=== PATIENT | female | born 1930 | race American Indian/Alaskan Native ===

== ENCOUNTER 2018-11-02 08:56 | Inpatient (IN) | payer MEDICARE, BC ==
--- NOTE | 2018-11-02 09:16 | C.PDOC ---
History Of Present Illness Patient is a 88 year old female dionicio who presents to the ED for hypoglycemia after EMS was called to her home. Patient states that she did not wake up like she typically does by calling her family this morning. Patient states that her family became concerned and called EMS after which the patient woke up to EMS being in her house. As per EMS, patient was hypoglycemic at 61. She denies any changes to her diabetes medication and states that she has been eating like she typically does. Patient denies any SOB, CP, palpitations, cough, fever, nausea, vomiting, diarrhea, or dysuria. Time Seen by Provider: 11/02/18 08:58 Chief Complaint (Nursing): High Blood Sugar History Per: Patient, EMS History/Exam Limitations: no limitations Onset/Duration Of Symptoms: Hrs (morning) Associated Infectious Symptoms: denies: Cough, Dysuria, Nausea, Vomiting, Diarrhea Recent travel outside of the [place]: No Additional History Per: Patient, EMS Past Medical History Reviewed: Historical Data, Nursing Documentation, Vital Signs Vital Signs: Last Vital Signs Temp 97.5 F L 11/02/18 09:04 Pulse 62 11/02/18 09:04 Resp 16 11/02/18 09:04 BP 161/72 H 11/02/18 09:04 Pulse Ox 98 11/02/18 09:04 - Medical History PMH: HTN, Hyperlipidemia Surgical History: No Surg Hx Family History: States: No Known Family Hx - Social History Hx Alcohol Use: No Hx Substance Use: No - Immunization History Hx Tetanus Toxoid Vaccination: No Hx Influenza Vaccination: Yes Hx Pneumococcal Vaccination: Yes Review Of Systems Constitutional: Negative for: Fever Cardiovascular: Negative for: Chest Pain, Palpitations Respiratory: Negative for: Cough, Shortness of Breath Gastrointestinal: Negative for: Nausea, Vomiting, Diarrhea Genitourinary: Negative for: Dysuria Physical Exam - Physical Exam Appears: Non-toxic, No Acute Distress Skin: Normal Color, Warm, Dry Head: Atraumatic, Normacephalic Oral Mucosa: Moist Chest: Symmetrical, No Deformity Cardiovascular: Rhythm Regular, No Murmur Respiratory: Normal Breath Sounds, No Rales, No Rhonchi, No Wheezing Gastrointestinal/Abdominal: Soft, No Tenderness, Other (obese) Extremity: Pedal Edema (+2 pitting edema bilateral lower extremities), Other (left proximal humerus has IO ) Neurological/Psych: Oriented x3, Normal Speech, Normal Cognition ED Course And Treatment - Laboratory Results Result Diagrams: 11/02/18 09:40 11/02/18 09:40 ECG Rhythm: Sinus Bradycardia Interpretation Of ECG: Left axis deviation, no acute ST/T wave changes Rate From EC O2 Sat by Pulse Oximetry: 98 (on RA ) Pulse Ox Interpretation: Normal - Other Rad CXR X-Ray: Viewed By Me, Read By Radiologist Interpretation: Accession No. : [id number]. Patient Name / ID : KING HOLLY / [id number]. Exam Date : 11/02/2018 09:12:21 ( Approved ). Study Comment : Sex / Age : F / [id number]. Creator : claudia arndt. Dictator : Hakeem Camejo MD. 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 Approver2 : Report Date : 11/02/2018 09:22:44. My Comment : . Date of service: 11/02/2018. HISTORY: HYPOGLYCEMIA. COMPARISON: None available. FINDINGS: LUNGS: Mild to moderate venous congestion. Patchy increased markings at the left lung base. PLEURA: No significant pleural effusion identified, no pneumothorax apparent. CARDIOVASCULAR: Atherosclerotic calcification at the aortic knob. Enlarged ectatic aorta. Cardiomegaly. Venous congestion. OSSEOUS STRUCTURES: Degenerative changes in the spine and shoulders. VISUALIZED UPPER ABDOMEN: Normal. OTHER FINDINGS: Linear radiopaque density projecting over the left shoulder. IMPRESSION: Mild to moderate venous congestion. Patchy increased markings at the left lung base. Progress Note: Plan: Labs. VBG. EKG. CXR. Urinalysis Disposition - Disposition Forms: [employer] (Lao) - Scribe Statement The provider has reviewed the documentation as recorded by the Waqasibanny Spear All medical record entries made by the Scribe were at my direction and personally dictated by me. I have reviewed the chart and agree that the record accurately reflects my personal performance of the history, physical exam, medical decision making, and the department course for this patient. I have also personally directed, reviewed, and agree with the discharge instructions and disposition.
--- NOTE | 2018-11-02 09:37 | RAD ---
Date of service: 11/02/2018 HISTORY: HYPOGLYCEMIA COMPARISON: None available. FINDINGS: LUNGS: Mild to moderate venous congestion. Patchy increased markings at the left lung base. PLEURA: No significant pleural effusion identified, no pneumothorax apparent. CARDIOVASCULAR: Atherosclerotic calcification at the aortic knob. Enlarged ectatic aorta. Cardiomegaly. Venous congestion. OSSEOUS STRUCTURES: Degenerative changes in the spine and shoulders. VISUALIZED UPPER ABDOMEN: Normal. OTHER FINDINGS: Linear radiopaque density projecting over the left shoulder. IMPRESSION: Mild to moderate venous congestion. Patchy increased markings at the left lung base.
[2018-11-02 09:48] LABS: BASO % 0.3 % (0.0-2.0); EOS % 0.4 % (0.0-4.0); HEMOGLOBIN 10.6 g/dL (11.0-16.0); LYMPH # 0.9 K/uL (1.0-4.3); LYMPH % 7.4 % (20.0-40.0); MEAN CELL VOLUME 90.5 fL (81.0-99.0); MEAN PLATELET VOLUME 9.6 fL (7.2-11.7); MONO # 1.2 K/uL (0.0-0.8); MONO % 9.8 % (0.0-10.0); NEUT # 9.6 K/uL (1.8-7.0); NEUT % 82.1 % (50.0-75.0); PLATELET COUNT 185 K/uL (130-400); RBC 3.77 Mil/uL (3.80-5.20); RED CELL DISTRIBUTION WIDTH 14.1 % (11.5-14.5); WHITE BLOOD COUNT 11.7 K/uL (4.8-10.8)
[2018-11-02 09:48] LABS: VENOUS BLOOD GAS BASE EXCESS -9.1 mmol/L (0.0-2.0); VENOUS BLOOD GAS PCO2 45 mmHg (40-60); VENOUS BLOOD GAS PO2 38 mm/Hg (30-55); VENOUS BLOOD PH 7.22 (7.32-7.43)
[2018-11-02 09:56] LABS: PROTHROMBIN TIME 10.8 SECONDS (9.7-12.2)
[2018-11-02 10:11] LABS: ALB/GLOB RATIO 1.3 (1.0-2.1); ALBUMIN 4.3 g/dL (3.5-5.0); ALT/SGPT 13 U/L (9-52); AST/SGOT 35 U/L (14-36); BLOOD UREA NITROGEN 54 mg/dL (7-17); CALCIUM 9.3 mg/dl (8.6-10.4); GFR NON-AFRICAN AMERICAN 14
[2018-11-02 10:18] LABS: ANISOCYTOSIS SLIGHT; BASOPHIL 1 % (0-2); BURR CELLS SLIGHT; HYPOCHROMIC SLIGHT; LYMPHOCYTE 10 % (20-40); MONOCYTE 9 % (0-10); NEUTROPHIL 80 % (50-75); PLATELET ESTIMATE NORMAL (NORMAL); POIKILOCYTOSIS SLIGHT; TOTAL CELLS COUNTED 100
[2018-11-02 10:20] LABS: CK-MB 0.24 ng/mL (0.0-3.38)
[2018-11-02 11:52] LABS: SQUAMOUS EPITHIAL 1 /hpf (0-5); URINE BACTERIA MANY (<OCC); URINE BILIRUBIN NEGATIVE (NEGATIVE); URINE BLOOD NEGATIVE (NEGATIVE); URINE CLARITY Hazy (Clear); URINE COLOR Yellow (YELLOW); URINE GLUCOSE (UA) NORMAL (Normal); URINE LEUKOCYTE ESTERASE 3+ Leu/uL (Negative); URINE PROTEIN NEGATIVE (NEGATIVE); URINE UROBILINOGEN NORMAL mg/dL (0.2-1.0); WBC CLUMPS FEW /hpf
[2018-11-02] MEDS ORDERED: cefTRIAXone IV 1 gm in Dextros 50 ML IV ONE (12:21)
[2018-11-02 16:10] VITALS: RESP 20
--- NOTE | 2018-11-02 16:34 | CP.PCM.HP ---
<Livier Choudhury - Last Filed: 11/02/18 16:25> History of Present Illness - History of Present Illness History of Present Illness: cc: AMS Ms. Santos is a 88yo F with a past medical history of hypertension, diabetes, and urinary incontinence who was BIBA for AMS. She was found to have a BG of 31 in the field per EMS; was given glucose through IO access. She became more alert through hospital stay, however was found to be acidotic. She also complains of burning on urination. Denies change in medication, change in appetite, headache, dizziness, chest pain, shortness of breath, abdominal pain, lightheadedness, fainting, change in appetite, noncompliance. PMH: HTN, DM, urinary incontinence Med: Atenolol 50mg daily, Plavix 75mg daily, Calciferol 0.25mcg BID, Glipizide 15mg BID, Tradjenta 5mg daily, Veltassa 8.4g daily All: NKDA PSxHx: bilateral total knees about 15 years ago FamHx: mother - CAD, ESRD on HD, in 90s. father - OK in 60s. Sister and Son have DM SocHx: Distant EtOH use. Denies ever tobacco, illicit drug use. Lives alone in senior community. Usually ambulates with walker assistance. PMD: Donnell Nephro: Thomas AlvarezRichardson Present on Admission - Present on Admission Any Indicators Present on Admission: No Review of Systems - Constitutional Constitutional: absent: Chills, Fever, Headache, Increased Appetite, Lethargy, Night Sweats, Weakness - EENT Eyes: absent: Blurred Vision, Change in Vision, Diplopia Ears: absent: Decreased Hearing, Tinnitus, Dizziness Nose/Mouth/Throat: absent: Nasal Congestion, Nasal Discharge - Cardiovascular Cardiovascular: Edema, Leg Edema. absent: Chest Pain, Dyspnea, Palpitations, Syncope - Respiratory Respiratory: absent: Dyspnea, Chest Congestion - Gastrointestinal Gastrointestinal: absent: Abdominal Pain, Constipation, Diarrhea, Nausea, Vomiting - Genitourinary Genitourinary: Dysuria, Urinary Incontinence, Urinary Urgency. absent: Bladder Distension - Musculoskeletal Musculoskeletal: absent: Abnormal Gait, Back Pain, Neck Pain - Integumentary Integumentary: Swelling. absent: Bleeding Lesions, Rash, Unusual Bruising - Neurological Neurological: absent: Numbness, Syncope, Tingling - Psychiatric Psychiatric: absent: Confusion, Hallucinations - Endocrine Endocrine: absent: Fatigue - Hematologic/Lymphatic Hematologic: absent: Easy Bleeding, Easy Bruising Past Patient History - Infectious Disease Hx of Infectious Diseases: None - Past Social History Smoking Status: Never Smoked Alcohol: None Drugs: Denies - CARDIAC Hx Hypertension: Yes - RENAL Hx Renal Failure: Yes - ENDOCRINE/METABOLIC Hx Diabetes Mellitus Type 2: Yes - PSYCHIATRIC Hx Substance Use: No - ANESTHESIA Hx Anesthesia: No Meds Allergies/Adverse Reactions: Allergies Allergy/AdvReac Type Severity Reaction Status Date / Time No Known Allergies Allergy Verified 11/02/18 09:08 Physical Exam - Constitutional Appears: Well, No Acute Distress - Head Exam Head Exam: ATRAUMATIC, NORMOCEPHALIC - Eye Exam Eye Exam: EOMI, PERRL Pupil Exam: NORMAL ACCOMODATION - ENT Exam ENT Exam: Mucous Membranes Moist - Neck Exam Neck exam: Negative for: Lymphadenopathy - Respiratory Exam Respiratory Exam: Clear to Auscultation Bilateral, NORMAL BREATHING PATTERN. absent: Rales, Rhonchi, Wheezes - Cardiovascular Exam Cardiovascular Exam: REGULAR RHYTHM, +S1, +S2. absent: Systolic Murmur - GI/Abdominal Exam GI & Abdominal Exam: Soft. absent: Guarding, Tenderness Additional comments: obese - Exam External exam: NORMAL EXTERNAL EXAM - Extremities Exam Extremities exam: Positive for: normal capillary refill, pedal pulses present - Neurological Exam Neurological exam: Alert, CN II-XII Intact, Oriented x3 Additional comments: brachio reflex 4/4 bilaterally, patellar reflex 2/4 bilaterally - Psychiatric Exam Psychiatric exam: Normal Affect, Normal Mood - Skin Skin Exam: Normal Color, Warm Results - Vital Signs Recent Vital Signs: Last Vital Signs Temp 97.6 F 11/02/18 16:00 Pulse 56 L 11/02/18 16:00 Resp 20 11/02/18 16:00 BP 158/63 H 11/02/18 16:00 Pulse Ox 98 11/02/18 16:00 - Labs Result Diagrams: 11/02/18 09:40 11/02/18 09:40 Labs: Laboratory Results - last 24 hr 11/02/18 11/02/18 11/02/18 09:05 09:40 09:40 WBC 11.7 H RBC 3.77 L Hgb 10.6 L Hct 34.1 MCV 90.5 MCH 28.0 MCHC 31.0 L RDW 14.1 Plt Count 185 MPV 9.6 Neut % (Auto) 82.1 H Lymph % (Auto) 7.4 L Payne % (Auto) 9.8 Eos % (Auto) 0.4 Baso % (Auto) 0.3 Neut # (Auto) 9.6 H Lymph # (Auto) 0.9 L Payne # (Auto) 1.2 H Eos # (Auto) 0.0 Baso # (Auto) 0.0 Neutrophils % (Manual) 80 H Lymphocytes % (Manual) 10 L Monocytes % (Manual) 9 Basophils % (Manual) 1 Platelet Estimate Normal Hypochromasia (manual) Slight Poikilocytosis (manual Slight Anisocytosis (manual) Slight Hull Cells Slight PT 10.8 INR 1.0 APTT 28 pO2 VBG pH VBG pCO2 VBG HCO3 VBG Total CO2 VBG O2 Sat (Calc) VBG Base Excess VBG Potassium Glucose Lactate Sodium Potassium Chloride Carbon Dioxide Anion Gap BUN Creatinine Est GFR ( Amer) Est GFR (Non-Af Amer) POC Glucose (mg/dL) 166 H Random Glucose Calcium Total Bilirubin AST ALT Alkaline Phosphatase Total Creatine Kinase CK-MB (Mass) Troponin I Total Protein Albumin Globulin Albumin/Globulin Ratio TSH 3rd Generation Venous Blood Potassium Urine Color Urine Clarity Urine pH Ur Specific [place] Urine Protein Urine Glucose (UA) Urine Ketones Urine Blood Urine Nitrate Urine Bilirubin Urine Urobilinogen Ur Leukocyte Esterase Urine WBC (Auto) Urine RBC (Auto) Urine WBC Clumps (Auto) Ur Squamous Epith Cells Urine Bacteria 11/02/18 11/02/18 11/02/18 09:40 09:41 11:30 WBC RBC Hgb Hct MCV MCH MCHC RDW Plt Count MPV Neut % (Auto) Lymph % (Auto) Payne % (Auto) Eos % (Auto) Baso % (Auto) Neut # (Auto) Lymph # (Auto) Payne # (Auto) Eos # (Auto) Baso # (Auto) Neutrophils % (Manual) Lymphocytes % (Manual) Monocytes % (Manual) Basophils % (Manual) Platelet Estimate Hypochromasia (manual) Poikilocytosis (manual Anisocytosis (manual) Hanna Cells PT INR APTT pO2 38 VBG pH 7.22 L VBG pCO2 45 VBG HCO3 16.8 VBG Total CO2 19.8 L VBG O2 Sat (Calc) 69.7 H VBG Base Excess -9.1 L VBG Potassium 5.0 Glucose 131 H Lactate 0.8 Sodium 138 143.0 Potassium 5.3 H Chloride 110 H 116.0 H Carbon Dioxide 18 L Anion Gap 15 BUN 54 H Creatinine 3.1 H Est GFR ( Amer) 17 Est GFR (Non-Af Amer) 14 POC Glucose (mg/dL) Random Glucose 133 H Calcium 9.3 Total Bilirubin 0.3 AST 35 ALT 13 Alkaline Phosphatase 60 Total Creatine Kinase 39 CK-MB (Mass) 0.24 Troponin I < 0.0120 Total Protein 7.6 Albumin 4.3 Globulin 3.3 Albumin/Globulin Ratio 1.3 TSH 3rd Generation 0.94 Venous Blood Potassium 5.0 Urine Color Yellow Urine Clarity Hazy Urine pH 6.0 Ur Specific [place] 1.008 Urine Protein Negative Urine Glucose (UA) Normal Urine Ketones Negative Urine Blood Negative Urine Nitrate Positive H Urine Bilirubin Negative Urine Urobilinogen Normal Ur Leukocyte Esterase 3+ H Urine WBC (Auto) 225 H Urine RBC (Auto) 2 Urine WBC Clumps (Auto) Few H Ur Squamous Epith Cells 1 Urine Bacteria Many H - EKG Data EKG Interpreted by: ER Physician EKG shows normal: Sinus rhythm Rate: Bradycardia Assessment & Plan - Assessment and Plan (Free Text) Assessment: 88yo F with PMHx HTN, DM, urinary incontinence admitted for acidosis and possible acute on chronic kidney disease. She was brought in by EMS for low BG (31 in field) which has since normalized. Plan: Acidosis, possible Acute on Chronic CKD - VBG OA pH 7.22, lactate 0.8 - BUN/Cr OA 54/3.1. unknown baseline - CXR OA: mild to mod venous congestion. patchy increased markings at L lung base - Nephro consulted: Dr. Thomas Richardson - help appreciated - Vasc Surg consulted: Dr. Beck - help appreciated - L UE restriction - tentatively scheduled for AVF placement on 11/04 Diabetes Mellitus - f/u Hgb A1c - Accuchecks ACHS - ISS low - hypoglycemia protocol - restart home Glipizide 10mg po BIDAC - NF home Tradjenta 5mg po daily Hyperkalemia - NF home Veltassa 8.4g powder - Kayexlate once - monitor daily labs UTI - UA OA positive for nitrates, 3+ LE, 225 WBC with clumps, many bacteria - WBC OA 11.7 - f/u Urine Cx (11/02): received - f/f Blood Cx (11/02): received - Ceftriaxone 1gm IVPB daily (started 11/02) Hypertension - home Atenolol 50mg po daily held for bradycardia - Hydralazine 25mg po qid PPx - DVT: Heparin 5000u SC q8, Plavix 75mg daily, SCDs CI - Diet: Renal Diet d/w Dr. Norman Choudhury PGY-1 - Date & Time Date: 11/02/18 Time: 16:00 <Kassi Austin - Last Filed: 11/06/18 18:15> Results - Vital Signs Recent Vital Signs: Last Vital Signs Temp 97.6 F 11/02/18 16:00 Pulse 56 L 11/02/18 16:00 Resp 20 11/02/18 16:00 BP 158/63 H 11/02/18 16:00 Pulse Ox 98 11/02/18 16:00 - Labs Result Diagrams: 11/06/18 08:41 11/06/18 08:41 Labs: Laboratory Results - last 24 hr 11/02/18 11/02/18 11/02/18 09:05 09:40 09:40 WBC 11.7 H RBC 3.77 L Hgb 10.6 L Hct 34.1 MCV 90.5 MCH 28.0 MCHC 31.0 L RDW 14.1 Plt Count 185 MPV 9.6 Neut % (Auto) 82.1 H Lymph % (Auto) 7.4 L Payne % (Auto) 9.8 Eos % (Auto) 0.4 Baso % (Auto) 0.3 Neut # (Auto) 9.6 H Lymph # (Auto) 0.9 L Payne # (Auto) 1.2 H Eos # (Auto) 0.0 Baso # (Auto) 0.0 Neutrophils % (Manual) 80 H Lymphocytes % (Manual) 10 L Monocytes % (Manual) 9 Basophils % (Manual) 1 Platelet Estimate Normal Hypochromasia (manual) Slight Poikilocytosis (manual Slight Anisocytosis (manual) Slight Hull Cells Slight PT 10.8 INR 1.0 APTT 28 pO2 VBG pH VBG pCO2 VBG HCO3 VBG Total CO2 VBG O2 Sat (Calc) VBG Base Excess VBG Potassium Glucose Lactate Sodium Potassium Chloride Carbon Dioxide Anion Gap BUN Creatinine Est GFR ( Amer) Est GFR (Non-Af Amer) POC Glucose (mg/dL) 166 H Random Glucose Calcium Total Bilirubin AST ALT Alkaline Phosphatase Total Creatine Kinase CK-MB (Mass) Troponin I Total Protein Albumin Globulin Albumin/Globulin Ratio TSH 3rd Generation Venous Blood Potassium Urine Color Urine Clarity Urine pH Ur Specific [place] Urine Protein Urine Glucose (UA) Urine Ketones Urine Blood Urine Nitrate Urine Bilirubin Urine Urobilinogen Ur Leukocyte Esterase Urine WBC (Auto) Urine RBC (Auto) Urine WBC Clumps (Auto) Ur Squamous Epith Cells Urine Bacteria 11/02/18 11/02/18 11/02/18 09:40 09:41 11:30 WBC RBC Hgb Hct MCV MCH MCHC RDW Plt Count MPV Neut % (Auto) Lymph % (Auto) Payne % (Auto) Eos % (Auto) Baso % (Auto) Neut # (Auto) Lymph # (Auto) Payne # (Auto) Eos # (Auto) Baso # (Auto) Neutrophils % (Manual) Lymphocytes % (Manual) Monocytes % (Manual) Basophils % (Manual) Platelet Estimate Hypochromasia (manual) Poikilocytosis (manual Anisocytosis (manual) Hull Cells PT INR APTT pO2 38 VBG pH 7.22 L VBG pCO2 45 VBG HCO3 16.8 VBG Total CO2 19.8 L VBG O2 Sat (Calc) 69.7 H VBG Base Excess -9.1 L VBG Potassium 5.0 Glucose 131 H Lactate 0.8 Sodium 138 143.0 Potassium 5.3 H Chloride 110 H 116.0 H Carbon Dioxide 18 L Anion Gap 15 BUN 54 H Creatinine 3.1 H Est GFR ( Amer) 17 Est GFR (Non-Af Amer) 14 POC Glucose (mg/dL) Random Glucose 133 H Calcium 9.3 Total Bilirubin 0.3 AST 35 ALT 13 Alkaline Phosphatase 60 Total Creatine Kinase 39 CK-MB (Mass) 0.24 Troponin I < 0.0120 Total Protein 7.6 Albumin 4.3 Globulin 3.3 Albumin/Globulin Ratio 1.3 TSH 3rd Generation 0.94 Venous Blood Potassium 5.0 Urine Color Yellow Urine Clarity Hazy Urine pH 6.0 Ur Specific [place] 1.008 Urine Protein Negative Urine Glucose (UA) Normal Urine Ketones Negative Urine Blood Negative Urine Nitrate Positive H Urine Bilirubin Negative Urine Urobilinogen Normal Ur Leukocyte Esterase 3+ H Urine WBC (Auto) 225 H Urine RBC (Auto) 2 Urine WBC Clumps (Auto) Few H Ur Squamous Epith Cells 1 Urine Bacteria Many H 11/02/18 16:35 WBC RBC Hgb Hct MCV MCH MCHC RDW Plt Count MPV Neut % (Auto) Lymph % (Auto) Payne % (Auto) Eos % (Auto) Baso % (Auto) Neut # (Auto) Lymph # (Auto) Payne # (Auto) Eos # (Auto) Baso # (Auto) Neutrophils % (Manual) Lymphocytes % (Manual) Monocytes % (Manual) Basophils % (Manual) Platelet Estimate Hypochromasia (manual) Poikilocytosis (manual Anisocytosis (manual) Hanna Cells PT INR APTT pO2 VBG pH VBG pCO2 VBG HCO3 VBG Total CO2 VBG O2 Sat (Calc) VBG Base Excess VBG Potassium Glucose Lactate Sodium Potassium Chloride Carbon Dioxide Anion Gap BUN Creatinine Est GFR ( Amer) Est GFR (Non-Af Amer) POC Glucose (mg/dL) 88 Random Glucose Calcium Total Bilirubin AST ALT Alkaline Phosphatase Total Creatine Kinase CK-MB (Mass) Troponin I Total Protein Albumin Globulin Albumin/Globulin Ratio TSH 3rd Generation Venous Blood Potassium Urine Color Urine Clarity Urine pH Ur Specific [place] Urine Protein Urine Glucose (UA) Urine Ketones Urine Blood Urine Nitrate Urine Bilirubin Urine Urobilinogen Ur Leukocyte Esterase Urine WBC (Auto) Urine RBC (Auto) Urine WBC Clumps (Auto) Ur Squamous Epith Cells Urine Bacteria Attending/Attestation - Attestation I have personally seen and examined this patient.: Yes I have fully participated in the care of the patient.: Yes I have reviewed all pertinent clinical information: Yes Notes (Text): 1. Metabolic acidosis,UTI,Renal failure 2.Change in mental status,hypoglycemia,DM 3. Chronic renal failure 4.HTN 5.Urinary incontinence patient was seen and examined by me with the resident. assessment and the plan discussed I agree with the documentation
[2018-11-02] MEDS ORDERED: Glucagon Recombinant 1 mg Inj IM PRN (16:47)
[2018-11-02] MEDS ORDERED: Dextrose 50% SYRINGE Inj (50 ml) IV PRN (16:47)
--- NOTE | 2018-11-02 16:49 | CP.PCM.CON ---
History of Present Illness - History of Present Illness History of Present Illness: Vascular surgery consult note for Dr. Beck Patient is an 88 year old female who presented to the ED after EMS found her unresponsive in her apartment with a blood glucose of 31. Patient reports this happening once before last year but states that her glucose was never this low. She denies any fever, chills, sweating, headache, dizziness, shortness of breath, chest pain, c/d, n/v, dysuria. Patient was scheduled for AV fistula p lacement later this week for chronic kidney disease with Dr. Beck. Patient states that all of her symptoms have resolved. PMHx: HTN, diabetes, HLD, urinary incontinence, CKD Medications: Atenolol 50mg daily, Plavix 75mg daily, Calciferol 0.25mcg BID, Glipizide 15mg BID, Tradjenta 5mg daily, Veltassa 8.4g daily Allergies: NKDA SurgHx: b/l total knee replacement FamilyHx: mother-kidney problems, was on dialysis, @ 91; father-HTN, @ young age SocialHx: patient lives alone in a senior citizen community in , she has a homemaker who comes 1x/day, patient denies alcohol/tobacco/drugs PMD: Dr. Caciedo Review of Systems - Review of Systems All systems: reviewed and no additional remarkable complaints except (as per HPI) Past Patient History - Infectious Disease Hx of Infectious Diseases: None - Past Social History Smoking Status: Never Smoked - CARDIAC Hx Hypertension: Yes - RENAL Hx Renal Failure: Yes - ENDOCRINE/METABOLIC Hx Diabetes Mellitus Type 2: Yes - PSYCHIATRIC Hx Substance Use: No - ANESTHESIA Hx Anesthesia: No Meds Allergies/Adverse Reactions: Allergies Allergy/AdvReac Type Severity Reaction Status Date / Time No Known Allergies Allergy Verified 11/02/18 09:08 Physical Exam - Constitutional Appears: Well, Non-toxic, No Acute Distress - Head Exam Head Exam: ATRAUMATIC, NORMAL INSPECTION, NORMOCEPHALIC - Eye Exam Eye Exam: EOMI, Normal appearance - ENT Exam ENT Exam: Mucous Membranes Moist - Neck Exam Neck exam: Positive for: Full Rom - Respiratory Exam Respiratory Exam: Clear to Auscultation Bilateral, NORMAL BREATHING PATTERN. absent: Accessory Muscle Use, Decreased Breath Sounds, Rales, Rhonchi, Wheezes - Cardiovascular Exam Cardiovascular Exam: REGULAR RHYTHM, +S1, +S2. absent: Bradycardia, Tachycardia, Gallop - GI/Abdominal Exam GI & Abdominal Exam: Normal Bowel Sounds, Soft. absent: Guarding, Rebound, Tenderness - Extremities Exam Extremities exam: Positive for: calf tenderness, pedal edema - Neurological Exam Neurological exam: Altered, Oriented x3 - Psychiatric Exam Psychiatric exam: Normal Affect, Normal Mood - Skin Skin Exam: Dry, Intact, Normal Color, Warm Results - Vital Signs Recent Vital Signs: Last Vital Signs Temp 97.6 F 11/02/18 16:00 Pulse 56 L 11/02/18 16:00 Resp 20 11/02/18 16:00 BP 158/63 H 11/02/18 16:00 Pulse Ox 98 11/02/18 16:00 - Labs Result Diagrams: 11/02/18 09:40 11/02/18 09:40 Labs: Laboratory Results - last 24 hr 11/02/18 11/02/18 11/02/18 09:05 09:40 09:40 WBC 11.7 H RBC 3.77 L Hgb 10.6 L Hct 34.1 MCV 90.5 MCH 28.0 MCHC 31.0 L RDW 14.1 Plt Count 185 MPV 9.6 Neut % (Auto) 82.1 H Lymph % (Auto) 7.4 L Real % (Auto) 9.8 Eos % (Auto) 0.4 Baso % (Auto) 0.3 Neut # (Auto) 9.6 H Lymph # (Auto) 0.9 L Real # (Auto) 1.2 H Eos # (Auto) 0.0 Baso # (Auto) 0.0 Neutrophils % (Manual) 80 H Lymphocytes % (Manual) 10 L Monocytes % (Manual) 9 Basophils % (Manual) 1 Platelet Estimate Normal Hypochromasia (manual) Slight Poikilocytosis (manual Slight Anisocytosis (manual) Slight [place] Cells Slight PT 10.8 INR 1.0 APTT 28 pO2 VBG pH VBG pCO2 VBG HCO3 VBG Total CO2 VBG O2 Sat (Calc) VBG Base Excess VBG Potassium Glucose Lactate Sodium Potassium Chloride Carbon Dioxide Anion Gap BUN Creatinine Est GFR ( Amer) Est GFR (Non-Af Amer) POC Glucose (mg/dL) 166 H Random Glucose Calcium Total Bilirubin AST ALT Alkaline Phosphatase Total Creatine Kinase CK-MB (Mass) Troponin I Total Protein Albumin Globulin Albumin/Globulin Ratio TSH 3rd Generation Venous Blood Potassium Urine Color Urine Clarity Urine pH Ur Specific [place] Urine Protein Urine Glucose (UA) Urine Ketones Urine Blood Urine Nitrate Urine Bilirubin Urine Urobilinogen Ur Leukocyte Esterase Urine WBC (Auto) Urine RBC (Auto) Urine WBC Clumps (Auto) Ur Squamous Epith Cells Urine Bacteria 11/02/18 11/02/18 11/02/18 09:40 09:41 11:30 WBC RBC Hgb Hct MCV MCH MCHC RDW Plt Count MPV Neut % (Auto) Lymph % (Auto) Real % (Auto) Eos % (Auto) Baso % (Auto) Neut # (Auto) Lymph # (Auto) Real # (Auto) Eos # (Auto) Baso # (Auto) Neutrophils % (Manual) Lymphocytes % (Manual) Monocytes % (Manual) Basophils % (Manual) Platelet Estimate Hypochromasia (manual) Poikilocytosis (manual Anisocytosis (manual) Hanna Cells PT INR APTT pO2 38 VBG pH 7.22 L VBG pCO2 45 VBG HCO3 16.8 VBG Total CO2 19.8 L VBG O2 Sat (Calc) 69.7 H VBG Base Excess -9.1 L VBG Potassium 5.0 Glucose 131 H Lactate 0.8 Sodium 138 143.0 Potassium 5.3 H Chloride 110 H 116.0 H Carbon Dioxide 18 L Anion Gap 15 BUN 54 H Creatinine 3.1 H Est GFR ( Amer) 17 Est GFR (Non-Af Amer) 14 POC Glucose (mg/dL) Random Glucose 133 H Calcium 9.3 Total Bilirubin 0.3 AST 35 ALT 13 Alkaline Phosphatase 60 Total Creatine Kinase 39 CK-MB (Mass) 0.24 Troponin I < 0.0120 Total Protein 7.6 Albumin 4.3 Globulin 3.3 Albumin/Globulin Ratio 1.3 TSH 3rd Generation 0.94 Venous Blood Potassium 5.0 Urine Color Yellow Urine Clarity Hazy Urine pH 6.0 Ur Specific [place] 1.008 Urine Protein Negative Urine Glucose (UA) Normal Urine Ketones Negative Urine Blood Negative Urine Nitrate Positive H Urine Bilirubin Negative Urine Urobilinogen Normal Ur Leukocyte Esterase 3+ H Urine WBC (Auto) 225 H Urine RBC (Auto) 2 Urine WBC Clumps (Auto) Few H Ur Squamous Epith Cells 1 Urine Bacteria Many H 11/02/18 16:35 WBC RBC Hgb Hct MCV MCH MCHC RDW Plt Count MPV Neut % (Auto) Lymph % (Auto) Real % (Auto) Eos % (Auto) Baso % (Auto) Neut # (Auto) Lymph # (Auto) Real # (Auto) Eos # (Auto) Baso # (Auto) Neutrophils % (Manual) Lymphocytes % (Manual) Monocytes % (Manual) Basophils % (Manual) Platelet Estimate Hypochromasia (manual) Poikilocytosis (manual Anisocytosis (manual) [place] Cells PT INR APTT pO2 VBG pH VBG pCO2 VBG HCO3 VBG Total CO2 VBG O2 Sat (Calc) VBG Base Excess VBG Potassium Glucose Lactate Sodium Potassium Chloride Carbon Dioxide Anion Gap BUN Creatinine Est GFR ( Amer) Est GFR (Non-Af Amer) POC Glucose (mg/dL) 88 Random Glucose Calcium Total Bilirubin AST ALT Alkaline Phosphatase Total Creatine Kinase CK-MB (Mass) Troponin I Total Protein Albumin Globulin Albumin/Globulin Ratio TSH 3rd Generation Venous Blood Potassium Urine Color Urine Clarity Urine pH Ur Specific [place] Urine Protein Urine Glucose (UA) Urine Ketones Urine Blood Urine Nitrate Urine Bilirubin Urine Urobilinogen Ur Leukocyte Esterase Urine WBC (Auto) Urine RBC (Auto) Urine WBC Clumps (Auto) Ur Squamous Epith Cells Urine Bacteria Assessment & Plan - Assessment and Plan (Free Text) Assessment: 88 year old female with chronic kidney disease. Plan: Patient will be pre-op'd for arteriovenous fistula placement on Friday Patient will need cardiac clearance Discussed with Dr. Ebony Patton, PGY-3
[2018-11-02] MEDS: (Novolog) Insulin Aspart, Recombinant 100 u/ml 10 ml vial SC SCH (22:44)
--- NOTE | 2018-11-03 07:37 | CP.PCM.PN ---
Subjective - Date & Time of Evaluation Date of Evaluation: 11/03/18 Time of Evaluation: 07:34 - Subjective Subjective: Vascular surgery progress note for Dr. Beck Patient seen and examined at bedside. She states she feels much better than before. She denies fevers, chills, headache, dizziness, lightheadedness, palpitations, chest pain, shortness of breath, nausea, vomiting, diarrhea, constipation. Objective - Vital Signs/Intake and Output Vital Signs (last 24 hours): Temp Pulse Resp BP Pulse Ox 97.8 F 59 L 20 129/66 99 11/02/18 23:47 11/02/18 23:47 11/02/18 23:47 11/02/18 23:47 11/02/18 23:47 Intake and Output: 11/03/18 11/03/18 06:59 18:59 Intake Total 480 Balance 480 - Medications Medications: Current Medications Clopidogrel Bisulfate (Plavix) 75 mg PO DAILY [facility] Dextrose (Dextrose 50% Inj) 0 ml IV STAT PRN; Protocol PRN Reason: Hypoglycemia Protocol Dextrose (Glutose 15) 0 gm PO ONCE PRN; Protocol PRN Reason: Hypoglycemia Protocol Glipizide (Glucotrol) 10 mg PO ACB [facility] Glucagon (Glucagen Diagnostic Kit) 0 mg IM STAT PRN; Protocol PRN Reason: Hypoglycemia Protocol Heparin Sodium (Porcine) (Heparin) 5,000 units SC Q8 [facility] Last Admin: 11/03/18 06:23 Dose: 5,000 units Hydralazine HCl (Apresoline) 25 mg PO QID [facility] Last Admin: 11/02/18 21:26 Dose: 25 mg Ceftriaxone Sodium 1 gm/ (Sodium Chloride) 100 mls @ 100 mls/hr IVPB DAILY [facility]; Protocol Dextrose (Dextrose 5% In Water 1000 Ml) 1,000 mls @ 0 mls/hr IV .Q0M PRN; Protocol PRN Reason: Hypoglycemia Protocol Insulin Aspart (Novolog) 0 unit SC ACHS [facility]; Protocol Last Admin: 11/02/18 22:44 Dose: Not Given - Labs Labs: 11/02/18 09:40 11/02/18 09:40 PT 10.8 SECONDS (9.7-12.2) 11/02/18 09:40 INR 1.0 11/02/18 09:40 APTT 28 SECONDS (21-34) 11/02/18 09:40 - Constitutional Appears: Well, Non-toxic, No Acute Distress - Eye Exam Eye Exam: EOMI, PERRL - ENT Exam ENT Exam: Mucous Membranes Moist - Respiratory Exam Respiratory Exam: Clear to Ausculation Bilateral, NORMAL BREATHING PATTERN - Cardiovascular Exam Cardiovascular Exam: REGULAR RHYTHM, +S1, +S2 - GI/Abdominal Exam GI & Abdominal Exam: Soft, Normal Bowel Sounds. absent: Guarding, Tenderness - Extremities Exam Extremities Exam: Normal Capillary Refill - Neurological Exam Neurological Exam: Alert, Awake, Oriented x3 - Psychiatric Exam Psychiatric exam: Normal Affect, Normal Mood - Skin Skin Exam: Dry, Intact, Warm Assessment and Plan - Assessment and Plan (Free Text) Assessment: 88 year old female with chronic kidney disease. Plan: Plan for AV fistula placement on 11/05/18 Cardiology clearance prior to surgery Case discussed with Dr. Ebony Harvey, PGY1
[2018-11-03 07:44] LABS: BASO # 0.1 K/uL (0.0-0.2); BASO % 0.7 % (0.0-2.0); EOS # 0.1 K/uL (0.0-0.7); EOS % 1.7 % (0.0-4.0); HEMOGLOBIN 9.3 g/dL (11.0-16.0); LYMPH % 22.8 % (20.0-40.0); MEAN CELL VOLUME 89.8 fL (81.0-99.0); MEAN CORPUSCULAR HGB CONC 32.3 g/dL (33.0-37.0); MEAN PLATELET VOLUME 9.3 fL (7.2-11.7); MONO # 0.9 K/uL (0.0-0.8); MONO % 10.7 % (0.0-10.0); NEUT # 5.5 K/uL (1.8-7.0); NEUT % 64.1 % (50.0-75.0); NRBC % 0.1 % (0.0-2.0); RBC 3.21 Mil/uL (3.80-5.20); RED CELL DISTRIBUTION WIDTH 13.9 % (11.5-14.5); WHITE BLOOD COUNT 8.7 K/uL (4.8-10.8)
[2018-11-03 07:56] LABS: CALCIUM 8.8 mg/dl (8.6-10.4)
[2018-11-03] MEDS: (Novolog) Insulin Aspart, Recombinant 100 u/ml 10 ml vial SC SCH ×3 (08:24→16:35)
[2018-11-03] MEDS: EPOETIN ALFA 4,000 UNIT/ML ML Dialysis SC SCH (11:00)
--- NOTE | 2018-11-03 12:44 | CARD ---
APPROVED REPORT Date of service: 11/02/2018 EKG Measurement Heart [id number] <Conclusion> Sinus bradycardia Left ventricular hypertrophy with repolarization abnormality Abnormal ECG
--- NOTE | 2018-11-03 12:47 | CP.PCM.CON ---
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 Hypertension control with meds as ordered. Maintain hemodynamics stable. Avoid hypotension. Patient not on ACEI/ARB due to hyperkalemia Monitor Input/Output, daily weights and renal function with basic metabolic lawson el started sodium bicarb, lasix on veltassa as outpt started iron MVI and ESAs as epogen pt seen by vascular surgery and planned for AV access soon Check urine analysis, spot protein/creatinine, albumin/creatinine ratio Anemia work up with TSAT/Ferritin/Vitamin B12/folate Check for 25-OH vitamin D, iPTH, phosphorus level. Dose meds/antibiotics for reduced GFR. Avoid fleets enema/magnesium based laxatives. Avoid nephrotoxins/NSAIDs/ iodinated contrast (unless needed emergently) Glycemic control. low K diet Further work up/management as per primary team Thanks for allowing me to participate in care of your patient. Will follow patient with you. Please call if any Qs. had d/w team Dr Pk Bonilla Office: [phone] Chief Complaint; low sugar Reason for consult: CKD management HPI: Pt is a 88 F with hx of diabetes Mellitus (20 years), hypertension (years) obesity hyperkalemia anemia presented with complaints of AMS and low sugar Denies OTC/herbal meds or NSAIDs No recent iodinated contrast exposure. No obvious episodes of low BP. pt feels usual health f/up with Dr Richardson in office and pt had accepted HD as future mode of dialysis. was aware about need for AV access soon ROS: Cardiovascular: No chest pain. Pulmonary: No shortness of breath Gastrointestinal: denies abdominal pain No nausea. No vomiting. Genitourinary: No pain while urinating. Denies blood in urine. All other negative except as mentioned in HPI Physical Examination: General Appearance: Comfortable, in no acute respiratory distress, co-operative . Vitals reviewed and noted as below Head; Atraumatic, normocephalic ENT: no ulcers no thrush. Tongue is midline. Oropharynx: no rash or ulcers. EYES: Pupils are equal, round and reactive to light accommodation. Eye muscles and extraocular movement intact. Sclera is anicteric. Neck; supple no lymphadenopathy, no thyromegaly or bruit Lungs: Normal respiratory rate/effort. Breath sounds bilateral equal and few basal crackle Heart: Normal rate. s1s2 normal. No rub or gallop. Extremities: 2+ edema. No varicose veins Neurological: Patient is alert, awake and oriented to person, place and time. No focal deficit. Strength bilateral appropriate and equal Skin: Warm and dry. Normal turgor. No rash. Palpitation: Normal elasticity for age Abdomen: Abdomen is soft. Bowel sounds +. There is no abdominal tenderness, no guarding/rigidity no organomegaly Psych: normal insight and normal affect/mood MSK: no joint tenderness or swelling. Digits and nails normal, no deformity : kidney or bladder not palpable Labs/imaging reviewed. Past medical history, past surgical history, family history, social history, allergy reviewed and noted as below Family hx: no hx of CKD. Rest non-contributory UA suggests UTI Past Patient History - Infectious Disease Hx of Infectious Diseases: None - Past Medical History & Family History Past Medical History?: Yes - Past Social History Smoking Status: Never Smoked Alcohol: None Drugs: Denies - CARDIAC Hx Hypertension: Yes - RENAL Hx Renal Failure: Yes - ENDOCRINE/METABOLIC Hx Diabetes Mellitus Type 2: Yes - MUSCULOSKELETAL/RHEUMATOLOGICAL Hx Falls: No - PSYCHIATRIC Hx Substance Use: No - ANESTHESIA Hx Anesthesia: No Meds Allergies/Adverse Reactions: Allergies Allergy/AdvReac Type Severity Reaction Status Date / Time No Known Allergies Allergy Verified 11/02/18 09:08 - Medications Medications: Current Medications Clopidogrel Bisulfate (Plavix) 75 mg PO DAILY [facility] Last Admin: 11/03/18 09:38 Dose: 75 mg Dextrose (Dextrose 50% Inj) 0 ml IV STAT PRN; Protocol PRN Reason: Hypoglycemia Protocol Dextrose (Glutose 15) 0 gm PO ONCE PRN; Protocol PRN Reason: Hypoglycemia Protocol Epoetin Abraham (Procrit) 4,000 unit SC TTS [facility] Last Admin: 11/03/18 11:00 Dose: 4,000 unit Ferrous Gluconate (Fergon) 324 mg PO TID [facility] Furosemide (Lasix) 40 mg PO DAILY [facility] Last Admin: 11/03/18 12:06 Dose: 40 mg Glucagon (Glucagen Diagnostic Kit) 0 mg IM STAT PRN; Protocol PRN Reason: Hypoglycemia Protocol Heparin Sodium (Porcine) (Heparin) 5,000 units SC Q8 [facility] Last Admin: 11/03/18 06:23 Dose: 5,000 units Hydralazine HCl (Apresoline) 25 mg PO QID [facility] Last Admin: 11/03/18 09:38 Dose: 25 mg Ceftriaxone Sodium 1 gm/ (Sodium Chloride) 100 mls @ 100 mls/hr IVPB DAILY [facility]; Protocol Last Admin: 11/03/18 09:38 Dose: 100 mls/hr Dextrose (Dextrose 5% In Water 1000 Ml) 1,000 mls @ 0 mls/hr IV .Q0M PRN; Protocol PRN Reason: Hypoglycemia Protocol Insulin Aspart (Novolog) 0 unit SC ACHS [facility]; Protocol Last Admin: 11/03/18 12:05 Dose: Not Given Sodium Bicarbonate (Sodium Bicarbonate Tab) 1,300 mg PO BID [facility] Last Admin: 11/03/18 11:00 Dose: 1,300 mg Sodium Polystyrene Sulfonate (Kayexalate) 15 gm PO DAILY [facility] Vitamin B Complex/Vit C/Folic Acid (Nephro-Daron) 1 tab PO 0800 [facility] Results - Vital Signs Recent Vital Signs: Last Vital Signs Temp 98.6 F 11/03/18 08:29 Pulse 65 11/03/18 08:29 Resp 20 11/03/18 08:29 BP 158/69 H 11/03/18 12:06 Pulse Ox 96 11/03/18 08:29 - Labs Result Diagrams: 11/03/18 07:27 11/03/18 07:27 Labs: Laboratory Results - last 24 hr 11/02/18 11/02/18 11/03/18 16:35 21:33 07:14 WBC RBC Hgb Hct MCV MCH MCHC RDW Plt Count MPV Neut % (Auto) Lymph % (Auto) [place] % (Auto) Eos % (Auto) Baso % (Auto) Neut # (Auto) Lymph # (Auto) [place] # (Auto) Eos # (Auto) Baso # (Auto) Sodium Potassium Chloride Carbon Dioxide Anion Gap BUN Creatinine Est GFR ( Amer) Est GFR (Non-Af Amer) POC Glucose (mg/dL) 88 83 88 Random Glucose Hemoglobin A1c Calcium 11/03/18 11/03/18 11/03/18 07:27 07:27 07:27 WBC 8.7 RBC 3.21 L Hgb 9.3 L Hct 28.8 L MCV 89.8 MCH 29.0 MCHC 32.3 L RDW 13.9 Plt Count 155 MPV 9.3 Neut % (Auto) 64.1 Lymph % (Auto) 22.8 [place] % (Auto) 10.7 H Eos % (Auto) 1.7 Baso % (Auto) 0.7 Neut # (Auto) 5.5 Lymph # (Auto) 2.0 [place] # (Auto) 0.9 H Eos # (Auto) 0.1 Baso # (Auto) 0.1 Sodium 141 Potassium 5.2 Chloride 115 H Carbon Dioxide 18 L Anion Gap 13 BUN 51 H Creatinine 3.0 H Est GFR ( Amer) 18 Est GFR (Non-Af Amer) 15 POC Glucose (mg/dL) Random Glucose 84 D Hemoglobin A1c 4.7 Calcium 8.8 11/03/18 11:17 WBC RBC Hgb Hct MCV MCH MCHC RDW Plt Count MPV Neut % (Auto) Lymph % (Auto) [place] % (Auto) Eos % (Auto) Baso % (Auto) Neut # (Auto) Lymph # (Auto) [place] # (Auto) Eos # (Auto) Baso # (Auto) Sodium Potassium Chloride Carbon Dioxide Anion Gap BUN Creatinine Est GFR ( Amer) Est GFR (Non-Af Amer) POC Glucose (mg/dL) 108 Random Glucose Hemoglobin A1c Calcium
--- NOTE | 2018-11-03 13:25 | CP.PCM.PN ---
<Livier Choudhury Y - Last Filed: 11/03/18 17:25> Subjective - Date & Time of Evaluation Date of Evaluation: 11/03/18 Time of Evaluation: 09:30 - Subjective Subjective: PGY-1 Medicine Progress note for Dr. Tse Patient was seen and examined today in no acute distress with daughter at bedside. Nurse reports no overnight events. Patient is very excited about her procedure and has no complaints. Denies chest pain, shortness of breath, abdominal pain, headache, dizziness, numbness, tingling. She reports having no cardiac workup in over a year. Objective - Vital Signs/Intake and Output Vital Signs (last 24 hours): Temp Pulse Resp BP Pulse Ox 98.6 F 65 20 158/69 H 96 11/03/18 08:29 11/03/18 08:29 11/03/18 08:29 11/03/18 12:06 11/03/18 08:29 Intake and Output: 11/03/18 11/03/18 06:59 18:59 Intake Total 480 Balance 480 - Medications Medications: Current Medications Clopidogrel Bisulfate (Plavix) 75 mg PO DAILY [facility] Last Admin: 11/03/18 09:38 Dose: 75 mg Dextrose (Dextrose 50% Inj) 0 ml IV STAT PRN; Protocol PRN Reason: Hypoglycemia Protocol Dextrose (Glutose 15) 0 gm PO ONCE PRN; Protocol PRN Reason: Hypoglycemia Protocol Epoetin Abraham (Procrit) 4,000 unit SC TTS [facility] Last Admin: 11/03/18 11:00 Dose: 4,000 unit Ferrous Gluconate (Fergon) 324 mg PO TID [facility] Furosemide (Lasix) 40 mg PO DAILY [facility] Last Admin: 11/03/18 12:06 Dose: 40 mg Glucagon (Glucagen Diagnostic Kit) 0 mg IM STAT PRN; Protocol PRN Reason: Hypoglycemia Protocol Heparin Sodium (Porcine) (Heparin) 5,000 units SC Q8 [facility] Last Admin: 11/03/18 06:23 Dose: 5,000 units Hydralazine HCl (Apresoline) 25 mg PO QID [facility] Last Admin: 11/03/18 09:38 Dose: 25 mg Ceftriaxone Sodium 1 gm/ (Sodium Chloride) 100 mls @ 100 mls/hr IVPB DAILY [facility]; Protocol Last Admin: 11/03/18 09:38 Dose: 100 mls/hr Dextrose (Dextrose 5% In Water 1000 Ml) 1,000 mls @ 0 mls/hr IV .Q0M PRN; Protocol PRN Reason: Hypoglycemia Protocol Insulin Aspart (Novolog) 0 unit SC ACHS [facility]; Protocol Last Admin: 11/03/18 12:05 Dose: Not Given Sodium Bicarbonate (Sodium Bicarbonate Tab) 1,300 mg PO BID [facility] Last Admin: 11/03/18 11:00 Dose: 1,300 mg Sodium Polystyrene Sulfonate (Kayexalate) 15 gm PO DAILY [facility] Vitamin B Complex/Vit C/Folic Acid (Nephro-Daron) 1 tab PO 0800 [facility] - Labs Labs: 11/03/18 07:27 11/03/18 07:27 PT 10.8 SECONDS (9.7-12.2) 11/02/18 09:40 INR 1.0 11/02/18 09:40 APTT 28 SECONDS (21-34) 11/02/18 09:40 - Constitutional Appears: Well, No Acute Distress - Head Exam Head Exam: ATRAUMATIC, NORMOCEPHALIC - Eye Exam Eye Exam: EOMI, Normal appearance, PERRL - ENT Exam ENT Exam: Mucous Membranes Moist - Respiratory Exam Respiratory Exam: Clear to Ausculation Bilateral, NORMAL BREATHING PATTERN. absent: Rales, Rhonchi, Wheezes - Cardiovascular Exam Cardiovascular Exam: REGULAR RHYTHM, +S1, +S2. absent: Murmur - GI/Abdominal Exam GI & Abdominal Exam: Soft, Normal Bowel Sounds. absent: Tenderness Additional comments: obese - Extremities Exam Extremities Exam: Normal Capillary Refill Additional comments: IV access in R arm bilateral non-pitting edema bilaterally distal to knees - Neurological Exam Neurological Exam: Alert, Awake, Oriented x3 - Psychiatric Exam Psychiatric exam: Normal Affect, Normal Mood - Skin Skin Exam: Normal Color, Warm Assessment and Plan - Assessment and Plan (Free Text) Assessment: 88yo F with PMHx HTN, DM, urinary incontinence admitted for acidosis and possible acute on chronic kidney disease. She was brought in by EMS for low BG (31 in field) which has since normalized. Plan: Acidosis, possible Acute on Chronic CKD, AMS - VBG OA pH 7.22, lactate 0.8 - BUN/Cr OA 54/3.1. unknown baseline - CXR OA: mild to mod venous congestion. patchy increased markings at L lung base - EPO 4000u SC TTS - Ferrous Gluconate 324mg po TID - Sodium Bicarb 1300mg po BID - Nephrovite 1 tab PO 0800 - Nephro consulted: Dr. Thomas Richardson - gela appreciated - f/u Phos, Vit D25, microalbumin, total urine protein, PTH - Vasc Surg consulted: Dr. Beck - help appreciated - L UE restriction - scheduled for AVF placement on [place] 11/05 pending cardiac clearance - Cardio consulted: Dr. Hunter - help appreciated - f/u ECHO - f/u Lexiscan stress test. NPO@FL Diabetes Mellitus - resolved - Hgb A1c: 4.7 - Accuchecks ACBD - ISS stopped - hypoglycemia protocol - stop home Glipizide, home Tradjenta NF (wasn't started during stay) Hyperkalemia - NF home Veltassa 8.4g powder - Kayexlate daily - monitor daily labs Acute Anemia - Hbg dropped from 10.6 OA -> 9.3 - Iron studies: Fe 41, TIBC 235, %sat 18, Ferritin 83.9 - VitB12: 463 - Nephro consulted: Dr. Thomas Richardson - help appreciated - EPO 4000u SC TTS - Ferrous Gluconate 324mg po TID - Sodium Bicarb 1300mg po BID - Nephrovite 1 tab PO 0800 UTI - UA OA positive for nitrates, 3+ LE, 225 WBC with clumps, many bacteria - WBC OA 11.7 - f/u Urine Cx (11/02): gram neg kat - f/u Blood Cx (11/02): gram pos cocci in clusters - Ceftriaxone 1gm IVPB daily (started 11/02) Hypertension - home Atenolol 50mg po daily held for bradycardia - Hydralazine 25mg po qid - Norvasc 5mg po daily - Lasix 40mg po daily - monitor vitals, avoid hypotension PPx - DVT: Heparin 5000u SC q8, Plavix 75mg daily, SCDs CI - Diet: Renal Diet, NPO@FL for Lexiscan stress test - PT/OT d/w Dr. Carmencita Choudhury PGY-1 <Sekou Tse - Last Filed: 11/03/18 19:24> Objective - Vital Signs/Intake and Output Vital Signs (last 24 hours): Temp Pulse Resp BP Pulse Ox 98.2 F 58 L 20 189/79 H 98 11/03/18 15:52 11/03/18 15:52 11/03/18 15:52 11/03/18 15:52 11/03/18 15:52 Intake and Output: 11/03/18 11/04/18 18:59 06:59 Intake Total 580 Balance 580 - Medications Medications: Current Medications Amlodipine Besylate (Norvasc) 5 mg PO DAILY [facility] Clopidogrel Bisulfate (Plavix) 75 mg PO DAILY [facility] Last Admin: 11/03/18 09:38 Dose: 75 mg Dextrose (Dextrose 50% Inj) 0 ml IV STAT PRN; Protocol PRN Reason: Hypoglycemia Protocol Dextrose (Glutose 15) 0 gm PO ONCE PRN; Protocol PRN Reason: Hypoglycemia Protocol Epoetin Abraham (Procrit) 4,000 unit SC TTS [facility] Last Admin: 11/03/18 11:00 Dose: 4,000 unit Ferrous Gluconate (Fergon) 324 mg PO TID [facility] Last Admin: 11/03/18 17:43 Dose: 324 mg Furosemide (Lasix) 40 mg PO DAILY [facility] Last Admin: 11/03/18 12:06 Dose: 40 mg Glucagon (Glucagen Diagnostic Kit) 0 mg IM STAT PRN; Protocol PRN Reason: Hypoglycemia Protocol Heparin Sodium (Porcine) (Heparin) 5,000 units SC Q8 [facility] Last Admin: 11/03/18 13:25 Dose: 5,000 units Hydralazine HCl (Apresoline) 25 mg PO QID [facility] Last Admin: 11/03/18 17:43 Dose: 25 mg Ceftriaxone Sodium 1 gm/ (Sodium Chloride) 100 mls @ 100 mls/hr IVPB DAILY [facility]; Protocol Last Admin: 11/03/18 09:38 Dose: 100 mls/hr Dextrose (Dextrose 5% In Water 1000 Ml) 1,000 mls @ 0 mls/hr IV .Q0M PRN; Protocol PRN Reason: Hypoglycemia Protocol Sodium Bicarbonate (Sodium Bicarbonate Tab) 1,300 mg PO BID [facility] Last Admin: 11/03/18 17:43 Dose: 1,300 mg Sodium Polystyrene Sulfonate (Kayexalate) 15 gm PO DAILY [facility] Vitamin B Complex/Vit C/Folic Acid (Nephro-Daron) 1 tab PO 0800 [facility] - Labs Labs: 11/03/18 07:27 03/12/19 07:27 PT 10.8 SECONDS (9.7-12.2) 11/02/18 09:40 INR 1.0 11/02/18 09:40 APTT 28 SECONDS (21-34) 11/02/18 09:40 Attending/Attestation - Attestation I have personally seen and examined this patient.: Yes I have fully participated in the care of the patient.: Yes I have reviewed all pertinent clinical information, including history, physical exam and plan: Yes Notes (Text): Acidosis, possible Acute on Chronic CKD, AMS A1c-4.7 - no further DM medications pavel sulfonureas spoke with daughter at bedside
[2018-11-03 15:28] LABS: IRON 41 ug/dL (37-170)
[2018-11-03 15:59] LABS: % IRON SATURATION 18 (20-55); TOTAL IRON BINDING CAPACITY 235 ug/dL (250-450)
[2018-11-03 16:07] LABS: FERRITIN 83.9 ng/mL
--- NOTE | 2018-11-03 18:30 | PQF ---
PROVIDER RESPONSE TEXT: Metabolic Encephalopathy in the setting of Hypoglycemia and ARF on CKD manifested by AMS and Lethargy , treated with D50 IV REVIEWER QUERY TEXT: Clarification of Clinical Diagnostic Findings Please clarify documentation or clinical relevance for the clinical / diagnostic findings or whether those are insignificant or unable to be further specified. Metabolic Encephalopathy in the setting of Hypoglycemia and ARF on CKD and UTI manifested by AMS and Lethargy , treated with D50 IV. -Other Explanation. -Unable to Determine.. The patient's Clinical Indicators include: Clinical Findings: brought by EMS with BS= 61, K= 5.2, Bun= 5.3, Crea= 3.1 GFR= 18; Positive U/A: Nitrites: Positive, Wbc= 225, Bacteria= Many . Per family patient not wake up this morning like she typically does. AMS . Treatment : D 50% IV, Serial CMP Risk factor: DM, CKD,HTN Query created by: Angie Muñoz on 11/03/2018 4:43 PM Electronically signed by: Sekou Tse MD 11/03/2018 6:28 PM
--- NOTE | 2018-11-04 00:12 | CP.PCM.CON ---
History of Present Illness - History of Present Illness History of Present Illness: Reason for Consultation: HTN uncontrolled Ms. Santos is a 88yo F with a past medical history of hypertension, diabetes, and urinary incontinence who was BIBA for AMS. She was found to have a BG of 31 in the field per EMS; was given glucose through IO access. She became more alert through hospital stay, however was found to be acidotic. She also complains of burning on urination. Denies change in medication, change in appetite, headache, dizziness, chest pain, shortness of breath, abdominal pain, lightheadedness, fainting, change in appetite, noncompliance. PMH: HTN, DM, urinary incontinence Med: Atenolol 50mg daily, Plavix 75mg daily, Calciferol 0.25mcg BID, Glipizide 15mg BID, Tradjenta 5mg daily, Veltassa 8.4g daily All: NKDA PSxHx: bilateral total knees about 15 years ago FamHx: mother - CAD, ESRD on HD, in 90s. father - [place] in 60s. Sister and Son have DM SocHx: Distant EtOH use. Denies ever tobacco, illicit drug use. Lives alone in senior community. Usually ambulates with walker assistance. PMD: Donnell Nephro: Thomas Richardson Present on Admission - Present on Admission Any Indicators Present on Admission: No Review of Systems - Constitutional Constitutional: absent: Chills, Fever, Headache, Increased Appetite, Lethargy, Night Sweats, Weakness - EENT Eyes: absent: Blurred Vision, Change in Vision, Diplopia Ears: absent: Decreased Hearing, Tinnitus, Dizziness Nose/Mouth/Throat: absent: Nasal Congestion, Nasal Discharge - Cardiovascular Cardiovascular: Edema, Leg Edema. absent: Chest Pain, Dyspnea, Palpitations, Syncope - Respiratory Respiratory: absent: Dyspnea, Chest Congestion - Gastrointestinal Gastrointestinal: absent: Abdominal Pain, Constipation, Diarrhea, Nausea, Vomiting - Genitourinary Genitourinary: Dysuria, Urinary Incontinence, Urinary Urgency. absent: Bladder Distension - Musculoskeletal Musculoskeletal: absent: Abnormal Gait, Back Pain, Neck Pain - Integumentary Integumentary: Swelling. absent: Bleeding Lesions, Rash, Unusual Bruising - Neurological Neurological: absent: Numbness, Syncope, Tingling - Psychiatric Psychiatric: absent: Confusion, Hallucinations - Endocrine Endocrine: absent: Fatigue - Hematologic/Lymphatic Hematologic: absent: Easy Bleeding, Easy Bruising Physical Exam - Constitutional Appears: Well, No Acute Distress - Head Exam Head Exam: ATRAUMATIC, NORMOCEPHALIC - Eye Exam Eye Exam: EOMI, PERRL Pupil Exam: NORMAL ACCOMODATION - ENT Exam ENT Exam: Mucous Membranes Moist - Neck Exam Neck exam: Negative for: Lymphadenopathy - Respiratory Exam Respiratory Exam: Clear to Auscultation Bilateral, NORMAL BREATHING PATTERN. absent: Rales, Rhonchi, Wheezes - Cardiovascular Exam Cardiovascular Exam: REGULAR RHYTHM, +S1, +S2. absent: Systolic Murmur - GI/Abdominal Exam GI & Abdominal Exam: Soft. absent: Guarding, Tenderness Additional comments: obese - Exam External exam: NORMAL EXTERNAL EXAM - Extremities Exam Extremities exam: Positive for: normal capillary refill, pedal pulses present - Neurological Exam Neurological exam: Alert, CN II-XII Intact, Oriented x3 Additional comments: brachio reflex 4/4 bilaterally, patellar reflex 2/4 bilaterally - Psychiatric Exam Psychiatric exam: Normal Affect, Normal Mood - Skin Skin Exam: Normal Color, Warm - EKG Data EKG Interpreted by: ER Physician EKG shows normal: Sinus rhythm Rate: Bradycardia Assessment & Plan - Assessment and Plan (Free Text) Assessment: 88yo F with PMHx HTN, DM, urinary incontinence admitted for acidosis and possible acute on chronic kidney disease. She was brought in by EMS for low BG (31 in field) which has since normalized. Plan: Acidosis, possible Acute on Chronic CKD - VBG OA pH 7.22, lactate 0.8 - BUN/Cr OA 54/3.1. unknown baseline - CXR OA: mild to mod venous congestion. patchy increased markings at L lung base - Nephro consulted: Dr. Thomas Richardson - help appreciated - Vasc Surg consulted: Dr. Beck - help appreciated - L UE restriction - tentatively scheduled for AVF placement on 11/04 Diabetes Mellitus - f/u Hgb A1c - Accuchecks ACHS - ISS low - hypoglycemia protocol - restart home Glipizide 10mg po BIDAC - NF home Tradjenta 5mg po daily Hyperkalemia - NF home Veltassa 8.4g powder - Kayexlate once - monitor daily labs UTI - UA OA positive for nitrates, 3+ LE, 225 WBC with clumps, many bacteria - WBC OA 11.7 - f/u Urine Cx (11/02): received - f/f Blood Cx (11/02): received - Ceftriaxone 1gm IVPB daily (started 11/02) Hypertension - home Atenolol 50mg po daily held for bradycardia - Hydralazine 25mg po qid PPx - DVT: Heparin 5000u SC q8, Plavix 75mg daily, SCDs CI - Diet: Renal Diet Past Patient History - Infectious Disease Hx of Infectious Diseases: None - Past Medical History & Family History Past Medical History?: Yes - Past Social History Smoking Status: Never Smoked Alcohol: None Drugs: Denies - CARDIAC Hx Hypertension: Yes - RENAL Hx Renal Failure: Yes - ENDOCRINE/METABOLIC Hx Diabetes Mellitus Type 2: Yes - MUSCULOSKELETAL/RHEUMATOLOGICAL Hx Arthritis: Yes (KNEE JT) - PSYCHIATRIC Hx Substance Use: No - ANESTHESIA Hx Anesthesia: No Meds Allergies/Adverse Reactions: Allergies Allergy/AdvReac Type Severity Reaction Status Date / Time No Known Allergies Allergy Verified 11/02/18 09:08 - Medications Medications: Current Medications Amlodipine Besylate (Norvasc) 5 mg PO DAILY [facility] Clopidogrel Bisulfate (Plavix) 75 mg PO DAILY [facility] Last Admin: 11/03/18 09:38 Dose: 75 mg Dextrose (Dextrose 50% Inj) 0 ml IV STAT PRN; Protocol PRN Reason: Hypoglycemia Protocol Dextrose (Glutose 15) 0 gm PO ONCE PRN; Protocol PRN Reason: Hypoglycemia Protocol Epoetin Abraham (Procrit) 4,000 unit SC TTS [facility] Last Admin: 11/03/18 11:00 Dose: 4,000 unit Ferrous Gluconate (Fergon) 324 mg PO TID [facility] Last Admin: 11/03/18 17:43 Dose: 324 mg Furosemide (Lasix) 40 mg PO DAILY [facility] Last Admin: 11/03/18 12:06 Dose: 40 mg Glucagon (Glucagen Diagnostic Kit) 0 mg IM STAT PRN; Protocol PRN Reason: Hypoglycemia Protocol Heparin Sodium (Porcine) (Heparin) 5,000 units SC Q8 [facility] Last Admin: 11/03/18 21:40 Dose: Not Given Hydralazine HCl (Apresoline) 25 mg PO QID [facility] Last Admin: 11/03/18 21:41 Dose: 25 mg Ceftriaxone Sodium 1 gm/ (Sodium Chloride) 100 mls @ 100 mls/hr IVPB DAILY [facility]; Protocol Last Admin: 11/03/18 09:38 Dose: 100 mls/hr Dextrose (Dextrose 5% In Water 1000 Ml) 1,000 mls @ 0 mls/hr IV .Q0M PRN; Protocol PRN Reason: Hypoglycemia Protocol Sodium Bicarbonate (Sodium Bicarbonate Tab) 1,300 mg PO BID [facility] Last Admin: 11/03/18 17:43 Dose: 1,300 mg Sodium Polystyrene Sulfonate (Kayexalate) 15 gm PO DAILY [facility] Vitamin B Complex/Vit C/Folic Acid (Nephro-Daron) 1 tab PO 0800 [facility] Results - Vital Signs Recent Vital Signs: Last Vital Signs Temp 98.2 F 11/03/18 15:52 Pulse 65 11/03/18 21:42 Resp 20 11/03/18 15:52 BP 182/55 H 11/03/18 21:42 Pulse Ox 98 11/03/18 15:52 - Labs Result Diagrams: 11/03/18 07:27 11/03/18 07:27 Labs: Laboratory Results - last 24 hr 11/03/18 11/03/18 11/03/18 07:14 07:27 07:27 WBC 8.7 RBC 3.21 L Hgb 9.3 L Hct 28.8 L MCV 89.8 MCH 29.0 MCHC 32.3 L RDW 13.9 Plt Count 155 MPV 9.3 Neut % (Auto) 64.1 Lymph % (Auto) 22.8 Winston % (Auto) 10.7 H Eos % (Auto) 1.7 Baso % (Auto) 0.7 Neut # (Auto) 5.5 Lymph # (Auto) 2.0 Winston # (Auto) 0.9 H Eos # (Auto) 0.1 Baso # (Auto) 0.1 Sodium Potassium Chloride Carbon Dioxide Anion Gap BUN Creatinine Est GFR ( Amer) Est GFR (Non-Af Amer) POC Glucose (mg/dL) 88 Random Glucose Hemoglobin A1c 4.7 Calcium Iron TIBC % Saturation Ferritin Vitamin B12 11/03/18 11/03/18 11/03/18 07:27 11:17 14:20 WBC RBC Hgb Hct MCV MCH MCHC RDW Plt Count MPV Neut % (Auto) Lymph % (Auto) Winston % (Auto) Eos % (Auto) Baso % (Auto) Neut # (Auto) Lymph # (Auto) Winston # (Auto) Eos # (Auto) Baso # (Auto) Sodium 141 Potassium 5.2 Chloride 115 H Carbon Dioxide 18 L Anion Gap 13 BUN 51 H Creatinine 3.0 H Est GFR ( Amer) 18 Est GFR (Non-Af Amer) 15 POC Glucose (mg/dL) 108 Random Glucose 84 D Hemoglobin A1c Calcium 8.8 Iron TIBC % Saturation Ferritin 83.9 Vitamin B12 463 11/03/18 11/03/18 11/03/18 14:20 16:25 21:27 WBC RBC Hgb Hct MCV MCH MCHC RDW Plt Count MPV Neut % (Auto) Lymph % (Auto) Winston % (Auto) Eos % (Auto) Baso % (Auto) Neut # (Auto) Lymph # (Auto) Winston # (Auto) Eos # (Auto) Baso # (Auto) Sodium Potassium Chloride Carbon Dioxide Anion Gap BUN Creatinine Est GFR ( Amer) Est GFR (Non-Af Amer) POC Glucose (mg/dL) 122 H 166 H Random Glucose Hemoglobin A1c Calcium Iron 41 TIBC 235 L % Saturation 18 L Ferritin Vitamin B12
[2018-11-04] MEDS: Multivitamin Vitamin B Complex (Nephro-Vite) Tab PO SCH (07:37)
[2018-11-04] MEDS ORDERED: Caffeine Citrated **INJ** 20 MG/ML IV ONE (08:21)
--- NOTE | 2018-11-04 14:32 | CARD ---
APPROVED REPORT Date of service: 11/04/2018 EXAM: Two-dimensional and M-mode echocardiogram with Doppler and color Doppler. RISK FACTORS Hypertension Diabetes 2D DIMENSIONS IVSd1.0 (0.7-1.1cm)LVDd5.2 (3.9-5.9cm) PWd1.3 (0.7-1.1cm)LA Qrodlj81 (18-58mL) LVDs3.2 (2.5-4.0cm)FS (%) 38.9 % LVEF (%)68.9 (>50%)LVEF (Goodson's)74.49 % M-Mode DIMENSIONS Left Atrium (MM)3.64 (2.5-4.0cm)IVSd0.87 (0.7-1.1cm) Aortic Root3.80 (2.2-3.7cm)LVDd5.62 (4.0-5.6cm) Aortic Cusp Exc.1.77 (1.5-2.0cm)PWd0.90 (0.7-1.1cm) FS (%) 43 %LVDs3.20 (2.0-3.8cm) LVEF (%)74 (>50%) Aortic Valve AI P 1/2 [id number] Mitral Valve MV E Gbhiepdn65.8cm/sMV A Rhobpaer59.2cm/sE/A ratio1.1 TDI Lateral E' Peak V7.51cm/sMedial E' Peak V6.16cm/sE/Lateral E'11.4 E/Medial E'13.9 Tricuspid Valve TR Peak [id number]/sTR Peak [id number] LEFT VENTRICLE The left ventricle is normal size. There is normal left ventricular wall thickness. The left ventricular function is normal. The left ventricular ejection fraction is within the normal range. No regional wall motion abnormalities noted. Transmitral Doppler flow pattern is Grade II-pseudonormal filling dynamics.. LV filling pressure is increased No left ventricle thrombus noted on this study. There is no ventricular septal defect visualized. There is no left ventricular aneurysm. There is no mass noted in the left ventricle. RIGHT VENTRICLE The right ventricle is normal size. There is normal right ventricular wall thickness. The right ventricular systolic function is normal. ATRIA The left atrium is moderately dilated. The right atrium size is normal. The interatrial septum is intact with no evidence for an atrial septal defect. AORTIC VALVE The aortic valve is normal in structure and function. There is mild aortic regurgitation. There is no aortic valvular stenosis. There is no aortic valvular vegetation. MITRAL VALVE The mitral valve is normal in structure and function. Mitral annular calcification is mild. There is no evidence of mitral valve prolapse. There is no mitral valve stenosis. Mitral regurgitation is mild. TRICUSPID VALVE The tricuspid valve is normal in structure and function. There is mild to moderate tricuspid regurgitation. Right ventricular systolic pressure is estimated at greater than 60 mmHg. There is moderate-severe pulmonary hypertension. There is no tricuspid valve prolapse or vegetation. There is no tricuspid valve stenosis. PULMONIC VALVE The pulmonary valve is normal in structure and function. There is no pulmonic valvular regurgitation. There is no pulmonic valvular stenosis. GREAT VESSELS The aortic root is normal in size. The ascending aorta is normal in size. The pulmonary artery is normal. The IVC is normal in size and collapses >50% with inspiration. PERICARDIAL EFFUSION The pericardium appears normal. There is no pleural effusion. <Conclusion> The left ventricular function is normal. The left ventricular ejection fraction is within the normal range. No regional wall motion abnormalities noted. Transmitral Doppler flow pattern is Grade II-pseudonormal filling dynamics.. LV filling pressure is increased The left atrium is moderately dilated. There is mild aortic regurgitation. Mitral regurgitation is mild. There is mild to moderate tricuspid regurgitation. Right ventricular systolic pressure is estimated at greater than 60 mmHg. There is moderate-severe pulmonary hypertension.
--- NOTE | 2018-11-04 15:39 | CP.PCM.PN ---
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 Hypertension control with meds as ordered. Maintain hemodynamics stable. Avoid hypotension. Patient not on ACEI/ARB due to hyperkalemia. started on norvasc and hydralazine today. further uptitration in meds as needed for HTN control Monitor Input/Output, daily weights and renal function with basic metabolic panel started sodium bicarb, lasix on veltassa as outpt started iron MVI and ESAs as epogen pt seen by vascular surgery and was planned for AV access but better to defer it since recent blood cx + for [employer]. Check urine analysis, spot protein/creatinine, albumin/creatinine ratio Anemia work up with TSAT/Ferritin/Vitamin B12/folate Check for 25-OH vitamin D, iPTH, phosphorus level. Dose meds/antibiotics for reduced GFR. Avoid fleets enema/magnesium based laxatives. Avoid nephrotoxins/NSAIDs/ iodinated contrast (unless needed emergently) Glycemic control. low K diet Further work up/management as per primary team Thanks for allowing me to participate in care of your patient. Will follow patient with you. Please call if any Qs. had d/w team Dr Pk Bonilla Office: [phone] Chief Complaint; low sugar Reason for consult: CKD management HPI: Pt is a 88 F with hx of diabetes Mellitus (20 years), hypertension (years) obesity hyperkalemia anemia presented with complaints of AMS and low sugar Denies OTC/herbal meds or NSAIDs No recent iodinated contrast exposure. No obvious episodes of low BP. pt feels usual health f/up with Dr Richardson in office and pt had accepted HD as future mode of dialysis. was aware about need for AV access soon ROS: Cardiovascular: No chest pain. Pulmonary: No shortness of breath Gastrointestinal: denies abdominal pain No nausea. No vomiting. Genitourinary: No pain while urinating. Denies blood in urine. All other negative except as mentioned in HPI Physical Examination: General Appearance: Comfortable, in no acute respiratory distress, co-operative . Vitals reviewed and noted as below Head; Atraumatic, normocephalic ENT: no ulcers no thrush. Tongue is midline. Oropharynx: no rash or ulcers. EYES: Pupils are equal, round and reactive to light accommodation. Eye muscles and extraocular movement intact. Sclera is anicteric. Neck; supple no lymphadenopathy, no thyromegaly or bruit Lungs: Normal respiratory rate/effort. Breath sounds bilateral equal and clearer Heart: Normal rate. s1s2 normal. No rub or gallop. Extremities: 2+ edema. No varicose veins Neurological: Patient is alert, awake and oriented to person, place and time. No focal deficit. Strength bilateral appropriate and equal Skin: Warm and dry. Normal turgor. No rash. Palpitation: Normal elasticity for age Abdomen: Abdomen is soft. Bowel sounds +. There is no abdominal tenderness, no guarding/rigidity no organomegaly Psych: normal insight and normal affect/mood MSK: no joint tenderness or swelling. Digits and nails normal, no deformity : kidney or bladder not palpable Labs/imaging reviewed. Past medical history, past surgical history, family history, social history, allergy reviewed and noted as below Family hx: no hx of CKD. Rest non-contributory UA suggests UTI Objective - Vital Signs/Intake and Output Vital Signs (last 24 hours): Temp Pulse Resp BP Pulse Ox 98.6 F 58 L 20 190/76 H 95 11/04/18 07:47 11/04/18 07:47 11/04/18 07:47 11/04/18 14:40 11/04/18 07:47 Intake and Output: 11/04/18 11/04/18 06:59 18:59 Intake Total 500 Balance 500 - Medications Medications: Current Medications Amlodipine Besylate (Norvasc) 5 mg PO DAILY [facility] Last Admin: 11/04/18 14:40 Dose: 5 mg Clopidogrel Bisulfate (Plavix) 75 mg PO DAILY [facility] Last Admin: 11/04/18 14:40 Dose: 75 mg Dextrose (Dextrose 50% Inj) 0 ml IV STAT PRN; Protocol PRN Reason: Hypoglycemia Protocol Dextrose (Glutose 15) 0 gm PO ONCE PRN; Protocol PRN Reason: Hypoglycemia Protocol Epoetin Abraham (Procrit) 4,000 unit SC TTS [facility] Last Admin: 11/03/18 11:00 Dose: 4,000 unit Ferrous Gluconate (Fergon) 324 mg PO TID [facility] Last Admin: 11/04/18 14:40 Dose: 324 mg Furosemide (Lasix) 40 mg PO DAILY [facility] Last Admin: 11/04/18 14:40 Dose: 40 mg Glucagon (Glucagen Diagnostic Kit) 0 mg IM STAT PRN; Protocol PRN Reason: Hypoglycemia Protocol Heparin Sodium (Porcine) (Heparin) 5,000 units SC Q8 [facility] Last Admin: 11/04/18 14:39 Dose: 5,000 units Hydralazine HCl (Apresoline) 25 mg PO QID [facility] Last Admin: 11/04/18 14:40 Dose: 25 mg Ceftriaxone Sodium 1 gm/ (Sodium Chloride) 100 mls @ 100 mls/hr IVPB DAILY [facility]; Protocol Last Admin: 11/04/18 14:39 Dose: 100 mls/hr Dextrose (Dextrose 5% In Water 1000 Ml) 1,000 mls @ 0 mls/hr IV .Q0M PRN; Protocol PRN Reason: Hypoglycemia Protocol Sodium Bicarbonate (Sodium Bicarbonate Tab) 1,300 mg PO BID [facility] Last Admin: 11/04/18 11:59 Dose: Not Given Sodium Polystyrene Sulfonate (Kayexalate) 15 gm PO DAILY [facility] Last Admin: 11/04/18 14:42 Dose: 15 gm Vitamin B Complex/Vit C/Folic Acid (Nephro-Daron) 1 tab PO 0800 [facility] Last Admin: 11/04/18 07:37 Dose: Not Given - Labs Labs: 11/03/18 07:27 11/03/18 07:27 PT 10.8 SECONDS (9.7-12.2) 11/02/18 09:40 INR 1.0 11/02/18 09:40 APTT 28 SECONDS (21-34) 11/02/18 09:40
[2018-11-04 18:10] LABS: BASO # 0.1 K/uL (0.0-0.2); BASO % 0.7 % (0.0-2.0); EOS # 0.2 K/uL (0.0-0.7); EOS % 1.9 % (0.0-4.0); HEMOGLOBIN 9.7 g/dL (11.0-16.0); LYMPH # 1.8 K/uL (1.0-4.3); LYMPH % 21.9 % (20.0-40.0); MEAN CORPUSCULAR HEMOGLOBIN 27.9 pg (27.0-31.0); MEAN CORPUSCULAR HGB CONC 31.7 g/dL (33.0-37.0); MEAN PLATELET VOLUME 9.6 fL (7.2-11.7); MONO # 0.9 K/uL (0.0-0.8); MONO % 11.1 % (0.0-10.0); NEUT # 5.4 K/uL (1.8-7.0); NEUT % 64.4 % (50.0-75.0); NRBC % 0.1 % (0.0-2.0); RBC 3.48 Mil/uL (3.80-5.20); RED CELL DISTRIBUTION WIDTH 13.9 % (11.5-14.5); WHITE BLOOD COUNT 8.3 K/uL (4.8-10.8)
[2018-11-04 18:26] LABS: CALCIUM 9.2 mg/dl (8.6-10.4)
--- NOTE | 2018-11-04 18:59 | CP.PCM.CON ---
History of Present Illness - History of Present Illness History of Present Illness: dictated Past Patient History - Infectious Disease Hx of Infectious Diseases: None - Past Medical History & Family History Past Medical History?: Yes - Past Social History Smoking Status: Never Smoked Alcohol: None Drugs: Denies - CARDIAC Hx Hypertension: Yes - RENAL Hx Renal Failure: Yes - ENDOCRINE/METABOLIC Hx Diabetes Mellitus Type 2: Yes - MUSCULOSKELETAL/RHEUMATOLOGICAL Hx Arthritis: Yes (KNEE JT) - PSYCHIATRIC Hx Substance Use: No - ANESTHESIA Hx Anesthesia: No Meds Allergies/Adverse Reactions: Allergies Allergy/AdvReac Type Severity Reaction Status Date / Time No Known Allergies Allergy Verified 11/02/18 09:08 - Medications Medications: Current Medications Amlodipine Besylate (Norvasc) 5 mg PO DAILY [facility] Last Admin: 11/04/18 14:40 Dose: 5 mg Clopidogrel Bisulfate (Plavix) 75 mg PO DAILY [facility] Last Admin: 11/04/18 14:40 Dose: 75 mg Dextrose (Dextrose 50% Inj) 0 ml IV STAT PRN; Protocol PRN Reason: Hypoglycemia Protocol Dextrose (Glutose 15) 0 gm PO ONCE PRN; Protocol PRN Reason: Hypoglycemia Protocol Epoetin Abraham (Procrit) 4,000 unit SC TTS [facility] Last Admin: 11/03/18 11:00 Dose: 4,000 unit Ferrous Gluconate (Fergon) 324 mg PO TID [facility] Last Admin: 11/04/18 17:50 Dose: 324 mg Furosemide (Lasix) 40 mg PO DAILY [facility] Last Admin: 11/04/18 14:40 Dose: 40 mg Glucagon (Glucagen Diagnostic Kit) 0 mg IM STAT PRN; Protocol PRN Reason: Hypoglycemia Protocol Heparin Sodium (Porcine) (Heparin) 5,000 units SC Q8 [facility] Last Admin: 11/04/18 14:39 Dose: 5,000 units Hydralazine HCl (Apresoline) 25 mg PO QID [facility] Last Admin: 11/04/18 17:52 Dose: 25 mg Ceftriaxone Sodium 1 gm/ (Sodium Chloride) 100 mls @ 100 mls/hr IVPB DAILY [facility]; Protocol Last Admin: 11/04/18 14:39 Dose: 100 mls/hr Dextrose (Dextrose 5% In Water 1000 Ml) 1,000 mls @ 0 mls/hr IV .Q0M PRN; Protocol PRN Reason: Hypoglycemia Protocol Daptomycin 450 mg/ Sodium (Chloride) 100 mls @ 100 mls/hr IV Q24H [facility]; Protocol Stop: 11/10/18 14:01 Sodium Bicarbonate (Sodium Bicarbonate Tab) 1,300 mg PO BID [facility] Last Admin: 11/04/18 17:51 Dose: 1,300 mg Sodium Polystyrene Sulfonate (Kayexalate) 15 gm PO DAILY [facility] Last Admin: 11/04/18 14:42 Dose: 15 gm Vitamin B Complex/Vit C/Folic Acid (Nephro-Daron) 1 tab PO 0800 [facility] Last Admin: 11/04/18 07:37 Dose: Not Given Results - Vital Signs Recent Vital Signs: Last Vital Signs Temp 97.6 F 11/04/18 16:00 Pulse 56 L 11/04/18 16:00 Resp 20 11/04/18 16:00 BP 177/65 H 11/04/18 16:00 Pulse Ox 100 11/04/18 16:00 - Labs Result Diagrams: 11/04/18 17:51 11/04/18 17:51 Labs: Laboratory Results - last 24 hr 11/03/18 11/03/18 11/04/18 14:20 21:27 07:05 WBC RBC Hgb Hct MCV MCH MCHC RDW Plt Count MPV Neut % (Auto) Lymph % (Auto) [place] % (Auto) Eos % (Auto) Baso % (Auto) Neut # (Auto) Lymph # (Auto) [place] # (Auto) Eos # (Auto) Baso # (Auto) Sodium Potassium Chloride Carbon Dioxide Anion Gap BUN Creatinine Est GFR ( Amer) Est GFR (Non-Af Amer) POC Glucose (mg/dL) 166 H 103 Random Glucose Calcium Phosphorus 25-OH Vitamin D Total PTH Intact Whole Molec 169 H 11/04/18 11/04/18 11/04/18 13:55 16:53 17:51 WBC 8.3 RBC 3.48 L Hgb 9.7 L Hct 30.6 L MCV 88.0 MCH 27.9 MCHC 31.7 L RDW 13.9 Plt Count 164 MPV 9.6 Neut % (Auto) 64.4 Lymph % (Auto) 21.9 [place] % (Auto) 11.1 H Eos % (Auto) 1.9 Baso % (Auto) 0.7 Neut # (Auto) 5.4 Lymph # (Auto) 1.8 [place] # (Auto) 0.9 H Eos # (Auto) 0.2 Baso # (Auto) 0.1 Sodium Potassium Chloride Carbon Dioxide Anion Gap BUN Creatinine Est GFR ( Amer) Est GFR (Non-Af Amer) POC Glucose (mg/dL) 135 H 112 H Random Glucose Calcium Phosphorus 25-OH Vitamin D Total PTH Intact Whole Molec 11/04/18 11/04/18 17:51 17:51 WBC RBC Hgb Hct MCV MCH MCHC RDW Plt Count MPV Neut % (Auto) Lymph % (Auto) [place] % (Auto) Eos % (Auto) Baso % (Auto) Neut # (Auto) Lymph # (Auto) [place] # (Auto) Eos # (Auto) Baso # (Auto) Sodium 141 Potassium 4.5 Chloride 110 H Carbon Dioxide 23 Anion Gap 13 BUN 43 H Creatinine 2.7 H Est GFR ( Amer) 20 Est GFR (Non-Af Amer) 17 POC Glucose (mg/dL) Random Glucose 100 Calcium 9.2 Phosphorus 4.0 25-OH Vitamin D Total 28.6 L PTH Intact Whole Molec
--- NOTE | 2018-11-04 20:15 | CP.PCM.PN ---
<Livier Choudhury Y - Last Filed: 11/04/18 20:06> Subjective - Date & Time of Evaluation Date of Evaluation: 11/04/18 Time of Evaluation: 09:10 - Subjective Subjective: PGY-1 Medicine Progress note for Dr. Tse Patient was seen and examined today in no acute distress. Nurse reports no overnight events. Patient is very excited about her procedure and has no complaints. Denies chest pain, shortness of breath, abdominal pain, headache, dizziness, numbness, tingling. She is going for cardiac workup today. Objective - Vital Signs/Intake and Output Vital Signs (last 24 hours): Temp Pulse Resp BP Pulse Ox 97.6 F 56 L 20 177/65 H 100 11/04/18 16:00 11/04/18 16:00 11/04/18 16:00 11/04/18 16:00 11/04/18 16:00 Intake and Output: 11/04/18 11/05/18 18:59 06:59 Intake Total 250 Balance 250 - Medications Medications: Current Medications Amlodipine Besylate (Norvasc) 5 mg PO DAILY [facility] Last Admin: 11/04/18 14:40 Dose: 5 mg Clopidogrel Bisulfate (Plavix) 75 mg PO DAILY [facility] Last Admin: 11/04/18 14:40 Dose: 75 mg Dextrose (Dextrose 50% Inj) 0 ml IV STAT PRN; Protocol PRN Reason: Hypoglycemia Protocol Dextrose (Glutose 15) 0 gm PO ONCE PRN; Protocol PRN Reason: Hypoglycemia Protocol Epoetin Abraham (Procrit) 4,000 unit SC TTS [facility] Last Admin: 11/03/18 11:00 Dose: 4,000 unit Ferrous Gluconate (Fergon) 324 mg PO TID [facility] Last Admin: 11/04/18 17:50 Dose: 324 mg Furosemide (Lasix) 40 mg PO DAILY [facility] Last Admin: 11/04/18 14:40 Dose: 40 mg Glucagon (Glucagen Diagnostic Kit) 0 mg IM STAT PRN; Protocol PRN Reason: Hypoglycemia Protocol Heparin Sodium (Porcine) (Heparin) 5,000 units SC Q8 [facility] Last Admin: 11/04/18 14:39 Dose: 5,000 units Hydralazine HCl (Apresoline) 25 mg PO QID [facility] Last Admin: 11/04/18 17:52 Dose: 25 mg Ceftriaxone Sodium 1 gm/ (Sodium Chloride) 100 mls @ 100 mls/hr IVPB DAILY [facility]; Protocol Last Admin: 11/04/18 14:39 Dose: 100 mls/hr Dextrose (Dextrose 5% In Water 1000 Ml) 1,000 mls @ 0 mls/hr IV .Q0M PRN; Protocol PRN Reason: Hypoglycemia Protocol Daptomycin 450 mg/ Sodium (Chloride) 100 mls @ 100 mls/hr IV Q24H [facility]; Protocol Stop: 11/10/18 14:01 Sodium Bicarbonate (Sodium Bicarbonate Tab) 1,300 mg PO BID [facility] Last Admin: 11/04/18 17:51 Dose: 1,300 mg Sodium Polystyrene Sulfonate (Kayexalate) 15 gm PO DAILY [facility] Last Admin: 11/04/18 14:42 Dose: 15 gm Vitamin B Complex/Vit C/Folic Acid (Nephro-Daron) 1 tab PO 0800 [facility] Last Admin: 11/04/18 07:37 Dose: Not Given - Labs Labs: 11/04/18 17:51 11/04/18 17:51 PT 10.8 SECONDS (9.7-12.2) 11/02/18 09:40 INR 1.0 11/02/18 09:40 APTT 28 SECONDS (21-34) 11/02/18 09:40 - Constitutional Appears: Well, No Acute Distress - Head Exam Head Exam: ATRAUMATIC, NORMOCEPHALIC - Eye Exam Eye Exam: EOMI, Normal appearance - ENT Exam ENT Exam: Mucous Membranes Moist - Respiratory Exam Respiratory Exam: Clear to Ausculation Bilateral, NORMAL BREATHING PATTERN. absent: Rales, Rhonchi, Wheezes - Cardiovascular Exam Cardiovascular Exam: REGULAR RHYTHM, +S1. absent: Murmur - GI/Abdominal Exam GI & Abdominal Exam: Soft, Normal Bowel Sounds. absent: Tenderness Additional comments: obese - Extremities Exam Extremities Exam: Normal Capillary Refill Additional comments: IV access in R arm non-pitting edema bilaterally distal to knees L arm restriction for AVF placement - Neurological Exam Neurological Exam: Alert, Awake, Oriented x3 - Psychiatric Exam Psychiatric exam: Normal Affect, Normal Mood - Skin Skin Exam: Normal Color, Warm Assessment and Plan - Assessment and Plan (Free Text) Assessment: 88yo F with PMHx HTN, DM, urinary incontinence admitted for UTI, acidosis and possible acute on chronic kidney disease. She was brought in by EMS for low BG (31 in field) which has since normalized. Plan: Acidosis, possible Acute on Chronic CKD, AMS - VBG OA pH 7.22, lactate 0.8 - BUN/Cr OA 54/3.1. unknown baseline - CXR OA: mild to mod venous congestion. patchy increased markings at L lung base - EPO 4000u SC TTS - Ferrous Gluconate 324mg po TID - Sodium Bicarb 1300mg po BID - Nephrovite 1 tab PO 0800 - Nephro consulted: Dr. Thomas Richardson - gela appreciated - Vasc Surg consulted: Dr. Beck - gela appreciated - L UE restriction - scheduled for AVF placement on 11/05 pending cardiac clearance, bacteremia resolution - f/u repeat Blood Cx (11/04): collected - Cardio consulted: Dr. Hunter - gela appreciated - ECHO (11/04): LVEF normal. 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 Thomas ren appreciated - EPO 4000u SC TTS - Ferrous Gluconate 324mg po TID - Sodium Bicarb 1300mg po BID - Nephrovite 1 tab PO 0800 UTI - UA OA positive for nitrates, 3+ LE, 225 WBC with clumps, many bacteria - WBC OA 11.7 - Urine Cx (11/02): E. coli sensitive to Ceftriaxone - f/u Blood Cx (11/02): gram pos cocci in clusters - Ceftriaxone 1gm IVPB daily (started 11/02) - ID consulted: Dr. Motley - gela appreciated - Vanco 1gm IVPB once - Random Vanc level in AM - Daptomycin 450mg IVPB daily (starting 11/05) Hypertension - home Atenolol 50mg po daily held for bradycardia - Hydralazine 25mg po qid - Norvasc 5mg po daily - Lasix 40mg po daily - monitor vitals, avoid hypotension PPx - DVT: Heparin 5000u SC q8, Plavix 75mg daily, SCDs CI - Diet: Renal Diet - PT/OT d/w Dr. Carmencita Choudhury PGY-1 <Sekou Tse - Last Filed: 11/06/18 14:51> Objective - Vital Signs/Intake and Output Vital Signs (last 24 hours): Temp Pulse Resp BP Pulse Ox 98 F 58 L 20 158/66 H 96 11/06/18 08:08 11/06/18 08:08 11/06/18 08:08 11/06/18 09:31 11/06/18 08:08 Intake and Output: 11/06/18 11/06/18 06:59 18:59 Intake Total 780 Balance 780 - Medications Medications: Current Medications Amlodipine Besylate (Norvasc) 10 mg PO DAILY [facility] Last Admin: 11/06/18 09:31 Dose: 10 mg Clopidogrel Bisulfate (Plavix) 75 mg PO DAILY [facility] Last Admin: 11/06/18 09:30 Dose: 75 mg Dextrose (Dextrose 50% Inj) 0 ml IV STAT PRN; Protocol PRN Reason: Hypoglycemia Protocol Dextrose (Glutose 15) 0 gm PO ONCE PRN; Protocol PRN Reason: Hypoglycemia Protocol Epoetin Abraham (Procrit) 4,000 unit SC TTS [facility] Last Admin: 11/05/18 13:00 Dose: 4,000 unit Ferrous Gluconate (Fergon) 324 mg PO TID [facility] Last Admin: 11/06/18 13:30 Dose: 324 mg Furosemide (Lasix) 40 mg PO BID [facility] Last Admin: 11/06/18 09:31 Dose: 40 mg Glucagon (Glucagen Diagnostic Kit) 0 mg IM STAT PRN; Protocol PRN Reason: Hypoglycemia Protocol Heparin Sodium (Porcine) (Heparin) 5,000 units SC Q8 [facility] Last Admin: 11/06/18 13:30 Dose: 5,000 units Hydralazine HCl (Apresoline) 25 mg PO QID [facility] Last Admin: 11/06/18 13:30 Dose: 25 mg Ceftriaxone Sodium 1 gm/ (Sodium Chloride) 100 mls @ 100 mls/hr IVPB DAILY [facility]; Protocol Last Admin: 11/06/18 09:29 Dose: 100 mls/hr Dextrose (Dextrose 5% In Water 1000 Ml) 1,000 mls @ 0 mls/hr IV .Q0M PRN; Protocol PRN Reason: Hypoglycemia Protocol Daptomycin 450 mg/ Sodium (Chloride) 100 mls @ 100 mls/hr IV Q48H [facility]; Protocol Last Admin: 11/05/18 17:41 Dose: 100 mls/hr Sodium Bicarbonate (Sodium Bicarbonate Tab) 650 mg PO BID [facility] Last Admin: 11/06/18 09:31 Dose: 650 mg Sodium Polystyrene Sulfonate (Kayexalate) 15 gm PO DAILY [facility] Last Admin: 11/05/18 11:14 Dose: Not Given Vitamin B Complex/Vit C/Folic Acid (Nephro-Daron) 1 tab PO 0800 [facility] Last Admin: 11/06/18 08:49 Dose: 1 tab - Labs Labs: 11/06/18 08:41 11/06/18 08:41 PT 10.8 SECONDS (9.7-12.2) 11/02/18 09:40 INR 1.0 11/02/18 09:40 APTT 28 SECONDS (21-34) 11/02/18 09:40 Attending/Attestation - Attestation I have personally seen and examined this patient.: Yes I have fully participated in the care of the patient.: Yes I have reviewed all pertinent clinical information, including history, physical exam and plan: Yes Notes (Text): 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
--- NOTE | 2018-11-04 23:06 | CP.PCM.PN ---
Subjective - Date & Time of Evaluation Date of Evaluation: 11/04/18 Time of Evaluation: 17:25 - Subjective Subjective: Patient seen and evaluated Denies chest pain and dyspnea Review of Systems - Constitutional Constitutional: absent: Chills, Fever, Headache, Increased Appetite, Lethargy, Night Sweats, Weakness - EENT Eyes: absent: Blurred Vision, Change in Vision, Diplopia Ears: absent: Decreased Hearing, Tinnitus, Dizziness Nose/Mouth/Throat: absent: Nasal Congestion, Nasal Discharge - Cardiovascular Cardiovascular: Edema, Leg Edema. absent: Chest Pain, Dyspnea, Palpitations, Syncope - Respiratory Respiratory: absent: Dyspnea, Chest Congestion - Gastrointestinal Gastrointestinal: absent: Abdominal Pain, Constipation, Diarrhea, Nausea, Vomiting - Genitourinary Genitourinary: Dysuria, Urinary Incontinence, Urinary Urgency. absent: Bladder Distension - Musculoskeletal Musculoskeletal: absent: Abnormal Gait, Back Pain, Neck Pain - Integumentary Integumentary: Swelling. absent: Bleeding Lesions, Rash, Unusual Bruising - Neurological Neurological: absent: Numbness, Syncope, Tingling - Psychiatric Psychiatric: absent: Confusion, Hallucinations - Endocrine Endocrine: absent: Fatigue - Hematologic/Lymphatic Hematologic: absent: Easy Bleeding, Easy Bruising Physical Exam - Constitutional Appears: Well, No Acute Distress - Head Exam Head Exam: ATRAUMATIC, NORMOCEPHALIC - Eye Exam Eye Exam: EOMI, PERRL Pupil Exam: NORMAL ACCOMODATION - ENT Exam ENT Exam: Mucous Membranes Moist - Neck Exam Neck exam: Negative for: Lymphadenopathy - Respiratory Exam Respiratory Exam: Clear to Auscultation Bilateral, NORMAL BREATHING PATTERN. absent: Rales, Rhonchi, Wheezes - Cardiovascular Exam Cardiovascular Exam: REGULAR RHYTHM, +S1, +S2. absent: Systolic Murmur - GI/Abdominal Exam GI & Abdominal Exam: Soft. absent: Guarding, Tenderness Additional comments: obese - Exam External exam: NORMAL EXTERNAL EXAM - Extremities Exam Extremities exam: Positive for: normal capillary refill, pedal pulses present - Neurological Exam Neurological exam: Alert, CN II-XII Intact, Oriented x3 Additional comments: brachio reflex 4/4 bilaterally, patellar reflex 2/4 bilaterally - Psychiatric Exam Psychiatric exam: Normal Affect, Normal Mood - Skin Skin Exam: Normal Color, Warm - EKG Data EKG Interpreted by: ER Physician EKG shows normal: Sinus rhythm Rate: Bradycardia Assessment & Plan - Assessment and Plan (Free Text) Assessment: 88yo F with PMHx HTN, DM, urinary incontinence admitted for acidosis and possible acute on chronic kidney disease. She was brought in by EMS for low BG (31 in field) which has since normalized. Plan: Acidosis, possible Acute on Chronic CKD - VBG OA pH 7.22, lactate 0.8 - BUN/Cr OA 54/3.1. unknown baseline - CXR OA: mild to mod venous congestion. patchy increased markings at L lung base - Nephro consulted: Dr. Thomas Richardson - help appreciated - Vasc Surg consulted: Dr. Beck - help appreciated - L UE restriction - tentatively scheduled for AVF placement on 11/04 Diabetes Mellitus - f/u Hgb A1c - Accuchecks ACHS - ISS low - hypoglycemia protocol - restart home Glipizide 10mg po BIDAC - NF home Tradjenta 5mg po daily Hyperkalemia - NF home Veltassa 8.4g powder - Kayexlate once - monitor daily labs UTI - UA OA positive for nitrates, 3+ LE, 225 WBC with clumps, many bacteria - WBC OA 11.7 - f/u Urine Cx (11/02): received - f/f Blood Cx (11/02): received - Ceftriaxone 1gm IVPB daily (started 11/02) Hypertension - home Atenolol 50mg po daily held for bradycardia - Hydralazine 25mg po qid PPx - DVT: Heparin 5000u SC q8, Plavix 75mg daily, SCDs CI - Diet: Renal Diet Objective - Vital Signs/Intake and Output Vital Signs (last 24 hours): Temp Pulse Resp BP Pulse Ox 97.6 F 56 L 20 177/65 H 100 11/04/18 16:00 11/04/18 16:00 11/04/18 16:00 11/04/18 16:00 11/04/18 16:00 Intake and Output: 11/04/18 11/05/18 18:59 06:59 Intake Total 250 300 Balance 250 300 - Medications Medications: Current Medications Amlodipine Besylate (Norvasc) 5 mg PO DAILY [facility] Last Admin: 11/04/18 14:40 Dose: 5 mg Clopidogrel Bisulfate (Plavix) 75 mg PO DAILY [facility] Last Admin: 11/04/18 14:40 Dose: 75 mg Dextrose (Dextrose 50% Inj) 0 ml IV STAT PRN; Protocol PRN Reason: Hypoglycemia Protocol Dextrose (Glutose 15) 0 gm PO ONCE PRN; Protocol PRN Reason: Hypoglycemia Protocol Epoetin Abraham (Procrit) 4,000 unit SC TTS [facility] Last Admin: 11/03/18 11:00 Dose: 4,000 unit Ferrous Gluconate (Fergon) 324 mg PO TID [facility] Last Admin: 11/04/18 17:50 Dose: 324 mg Furosemide (Lasix) 40 mg PO DAILY [facility] Last Admin: 11/04/18 14:40 Dose: 40 mg Glucagon (Glucagen Diagnostic Kit) 0 mg IM STAT PRN; Protocol PRN Reason: Hypoglycemia Protocol Heparin Sodium (Porcine) (Heparin) 5,000 units SC Q8 [facility] Last Admin: 11/04/18 21:46 Dose: 5,000 units Hydralazine HCl (Apresoline) 25 mg PO QID [facility] Last Admin: 11/04/18 21:46 Dose: 25 mg Ceftriaxone Sodium 1 gm/ (Sodium Chloride) 100 mls @ 100 mls/hr IVPB DAILY [facility]; Protocol Last Admin: 11/04/18 14:39 Dose: 100 mls/hr Dextrose (Dextrose 5% In Water 1000 Ml) 1,000 mls @ 0 mls/hr IV .Q0M PRN; Protocol PRN Reason: Hypoglycemia Protocol Daptomycin 450 mg/ Sodium (Chloride) 100 mls @ 100 mls/hr IV Q24H [facility]; Protocol Stop: 11/10/18 14:01 Sodium Bicarbonate (Sodium Bicarbonate Tab) 1,300 mg PO BID [facility] Last Admin: 11/04/18 17:51 Dose: 1,300 mg Sodium Polystyrene Sulfonate (Kayexalate) 15 gm PO DAILY [facility] Last Admin: 11/04/18 14:42 Dose: 15 gm Vitamin B Complex/Vit C/Folic Acid (Nephro-Daron) 1 tab PO 0800 [facility] Last Admin: 11/04/18 07:37 Dose: Not Given - Labs Labs: 11/04/18 17:51 11/04/18 17:51 PT 10.8 SECONDS (9.7-12.2) 11/02/18 09:40 INR 1.0 11/02/18 09:40 APTT 28 SECONDS (21-34) 11/02/18 09:40
--- NOTE | 2018-11-05 07:30 | CP.PCM.PN ---
<Jean-Pierre Lacy - Last Filed: 11/05/18 20:57> Subjective - Date & Time of Evaluation Date of Evaluation: 11/05/18 Time of Evaluation: 07:00 - Subjective Subjective: PGY-1 Medicine Progress note for Dr. Tse Patient was seen and examined today in no acute distress. Nurse reports no overnight events. Patient is in good spirits this morning. Patient denies any pain, no fever, chills, chest pain, sob, nausea, vomiting, diarrhea or constipation. Patient is tolerating diet. awaiting AVF pending repeat blood cultures results. Objective - Vital Signs/Intake and Output Vital Signs (last 24 hours): Temp Pulse Resp BP Pulse Ox 98.5 F 64 20 169/70 H 98 11/05/18 00:00 11/05/18 00:00 11/05/18 00:00 11/05/18 00:00 11/05/18 00:00 Intake and Output: 11/05/18 11/05/18 06:59 18:59 Intake Total 540 Balance 540 - Medications Medications: Current Medications Amlodipine Besylate (Norvasc) 5 mg PO DAILY [facility] Last Admin: 11/04/18 14:40 Dose: 5 mg Clopidogrel Bisulfate (Plavix) 75 mg PO DAILY [facility] Last Admin: 11/04/18 14:40 Dose: 75 mg Dextrose (Dextrose 50% Inj) 0 ml IV STAT PRN; Protocol PRN Reason: Hypoglycemia Protocol Dextrose (Glutose 15) 0 gm PO ONCE PRN; Protocol PRN Reason: Hypoglycemia Protocol Epoetin Abraham (Procrit) 4,000 unit SC TTS [facility] Last Admin: 11/03/18 11:00 Dose: 4,000 unit Ferrous Gluconate (Fergon) 324 mg PO TID [facility] Last Admin: 11/04/18 17:50 Dose: 324 mg Furosemide (Lasix) 40 mg PO DAILY [facility] Last Admin: 11/04/18 14:40 Dose: 40 mg Glucagon (Glucagen Diagnostic Kit) 0 mg IM STAT PRN; Protocol PRN Reason: Hypoglycemia Protocol Heparin Sodium (Porcine) (Heparin) 5,000 units SC Q8 [facility] Last Admin: 11/05/18 06:02 Dose: 5,000 units Hydralazine HCl (Apresoline) 25 mg PO QID [facility] Last Admin: 11/04/18 21:46 Dose: 25 mg Ceftriaxone Sodium 1 gm/ (Sodium Chloride) 100 mls @ 100 mls/hr IVPB DAILY [facility]; Protocol Last Admin: 11/04/18 14:39 Dose: 100 mls/hr Dextrose (Dextrose 5% In Water 1000 Ml) 1,000 mls @ 0 mls/hr IV .Q0M PRN; Protocol PRN Reason: Hypoglycemia Protocol Daptomycin 450 mg/ Sodium (Chloride) 100 mls @ 100 mls/hr IV Q24H [facility]; Protocol Stop: 11/10/18 14:01 Sodium Bicarbonate (Sodium Bicarbonate Tab) 1,300 mg PO BID [facility] Last Admin: 11/04/18 17:51 Dose: 1,300 mg Sodium Polystyrene Sulfonate (Kayexalate) 15 gm PO DAILY [facility] Last Admin: 11/04/18 14:42 Dose: 15 gm Vitamin B Complex/Vit C/Folic Acid (Nephro-Daron) 1 tab PO 0800 [facility] Last Admin: 11/04/18 07:37 Dose: Not Given - Labs Labs: 11/04/18 17:51 11/04/18 17:51 PT 10.8 SECONDS (9.7-12.2) 11/02/18 09:40 INR 1.0 11/02/18 09:40 APTT 28 SECONDS (21-34) 11/02/18 09:40 - Constitutional Appears: Non-toxic, No Acute Distress - Head Exam Head Exam: ATRAUMATIC, NORMAL INSPECTION, NORMOCEPHALIC - Eye Exam Eye Exam: EOMI, Normal appearance - ENT Exam ENT Exam: Mucous Membranes Moist - Neck Exam Neck Exam: Normal Inspection - Respiratory Exam Respiratory Exam: Clear to Ausculation Bilateral, NORMAL BREATHING PATTERN. absent: Rales, Rhonchi, Wheezes - Cardiovascular Exam Cardiovascular Exam: REGULAR RHYTHM, +S1, +S2 - GI/Abdominal Exam GI & Abdominal Exam: Soft, Normal Bowel Sounds - Extremities Exam Additional comments: nonpitting edema b/l - Neurological Exam Neurological Exam: Alert, Awake - Psychiatric Exam Psychiatric exam: Normal Affect, Normal Mood - Skin Skin Exam: Dry, Normal Color, Warm Assessment and Plan - Assessment and Plan (Free Text) Assessment: 88yo F with PMHx HTN, DM, urinary incontinence admitted for UTI, acidosis and possible acute on chronic kidney disease. She was brought in by EMS for low BG (31 in field) which has since normalized. 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 unknown baseline - CXR OA: mild to mod venous congestion. patchy increased markings at L lung base - EPO 4000u SC TTS - Ferrous Gluconate 324mg po TID - Sodium Bicarb 1300mg po BID - Nephrovite 1 tab PO 0800 - Nephro consulted: Dr. Bonilla - gela appreciated - no acute need for renal replacement at this timeAV fistula better to defer due to positive cultures - Vasc Surg consulted: Dr. Ebony ren appreciated - L UE restriction - As per ID - recommends to wait for blood cultures negative for 48 hours, and repeat blood cultures as outpatient in one week, patient can schedule AVF if no bacteria present in subsequent blood cultures. -Blood Cx (11/02): gram pos cocci in clusters, Repeat blood cx 11/04 - negative for 24 hours - Cardio consulted: Dr. Dale ren appreciated - ECHO (11/04): LVEF normal. moderate to sever pulm hypertension - Lexiscan stress test (11/04) - no stress induced ischemia, left ventricle systolic function is normal, ejection fraction is more than 70% - moderate risk for surgery Diabetes Mellitus - resolved - Hgb A1c: 4.7 - Accuchecks ACBD - ISS stopped - hypoglycemia protocol - stop home Glipizide, home Tradjenta NF (wasn't started during stay) Hyperkalemia - NF home Veltassa 8.4g powder - Kayexlate daily - hold for now as K is wnl - monitor daily labs Acute Anemia - Hbg dropped from 10.6 OA -> 9.7 today - Iron studies: Fe 41, TIBC 235, %sat 18, Ferritin 83.9 - VitB12: 463 - Nephro consulted: Dr. Thomas Richardson - gela appreciated - EPO 4000u SC TTS - Ferrous Gluconate 324mg po TID - Sodium Bicarb 1300mg po BID - Nephrovite 1 tab PO 0800 UTI - UA OA positive for nitrates, 3+ LE, 225 WBC with clumps, many bacteria - WBC OA 11.7 - Urine Cx (11/02): E. coli sensitive to Ceftriaxone - f/u Blood Cx (11/02): gram pos cocci in clusters - Ceftriaxone 1gm IVPB daily (started 11/02) - ID consulted: Dr. Motley - help appreciated - Vanco 1gm IVPB once - Random Vanc level in AM - Daptomycin 450mg IVPB daily (starting 11/05) Hypertension - elevated BP this morning at 169/70 - home Atenolol 50mg po daily held for bradycardia - Hydralazine 25mg po qid - Norvasc 5mg po daily -- increased to 10mg PO daily - Lasix 40mg po daily - monitor vitals, avoid hypotension PPx - DVT: Heparin 5000u SC q8, Plavix 75mg daily, SCDs CI - Diet: Renal Diet - PT/OT Dispo: As per ID, AVF can be deferred until BCx are negative for more than 3 days, patient will then have to get another blood culture in one week, most likely outpatient. If repeat Bcxs are all negative, patient can be scheduled for AVF. Plan discussed with Dr Carmencita Lacy, PGY-1 <Sekou Tse - Last Filed: 11/06/18 14:51> Objective - Vital Signs/Intake and Output Vital Signs (last 24 hours): Temp Pulse Resp BP Pulse Ox 98 F 58 L 20 158/66 H 96 11/06/18 08:08 11/06/18 08:08 11/06/18 08:08 11/06/18 09:31 11/06/18 08:08 Intake and Output: 11/06/18 11/06/18 06:59 18:59 Intake Total 780 Balance 780 - Medications Medications: Current Medications Amlodipine Besylate (Norvasc) 10 mg PO DAILY [facility] Last Admin: 11/06/18 09:31 Dose: 10 mg Clopidogrel Bisulfate (Plavix) 75 mg PO DAILY [facility] Last Admin: 11/06/18 09:30 Dose: 75 mg Dextrose (Dextrose 50% Inj) 0 ml IV STAT PRN; Protocol PRN Reason: Hypoglycemia Protocol Dextrose (Glutose 15) 0 gm PO ONCE PRN; Protocol PRN Reason: Hypoglycemia Protocol Epoetin Abraham (Procrit) 4,000 unit SC TTS [facility] Last Admin: 11/05/18 13:00 Dose: 4,000 unit Ferrous Gluconate (Fergon) 324 mg PO TID [facility] Last Admin: 11/06/18 13:30 Dose: 324 mg Furosemide (Lasix) 40 mg PO BID [facility] Last Admin: 11/06/18 09:31 Dose: 40 mg Glucagon (Glucagen Diagnostic Kit) 0 mg IM STAT PRN; Protocol PRN Reason: Hypoglycemia Protocol Heparin Sodium (Porcine) (Heparin) 5,000 units SC Q8 [facility] Last Admin: 11/06/18 13:30 Dose: 5,000 units Hydralazine HCl (Apresoline) 25 mg PO QID [facility] Last Admin: 11/06/18 13:30 Dose: 25 mg Ceftriaxone Sodium 1 gm/ (Sodium Chloride) 100 mls @ 100 mls/hr IVPB DAILY [facility]; Protocol Last Admin: 11/06/18 09:29 Dose: 100 mls/hr Dextrose (Dextrose 5% In Water 1000 Ml) 1,000 mls @ 0 mls/hr IV .Q0M PRN; Protocol PRN Reason: Hypoglycemia Protocol Daptomycin 450 mg/ Sodium (Chloride) 100 mls @ 100 mls/hr IV Q48H [facility]; Protocol Last Admin: 11/05/18 17:41 Dose: 100 mls/hr Sodium Bicarbonate (Sodium Bicarbonate Tab) 650 mg PO BID [facility] Last Admin: 11/06/18 09:31 Dose: 650 mg Sodium Polystyrene Sulfonate (Kayexalate) 15 gm PO DAILY [facility] Last Admin: 11/05/18 11:14 Dose: Not Given Vitamin B Complex/Vit C/Folic Acid (Nephro-Daron) 1 tab PO 0800 [facility] Last Admin: 11/06/18 08:49 Dose: 1 tab - Labs Labs: 11/06/18 08:41 11/06/18 08:41 PT 10.8 SECONDS (9.7-12.2) 11/02/18 09:40 INR 1.0 11/02/18 09:40 APTT 28 SECONDS (21-34) 11/02/18 09:40 Attending/Attestation - Attestation I have personally seen and examined this patient.: Yes I have fully participated in the care of the patient.: Yes I have reviewed all pertinent clinical information, including history, physical exam and plan: Yes Notes (Text): 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
[2018-11-05 08:07] LABS: BASO % 0.7 % (0.0-2.0); EOS # 0.2 K/uL (0.0-0.7); EOS % 2.8 % (0.0-4.0); HEMOGLOBIN 9.3 g/dL (11.0-16.0); LYMPH # 1.7 K/uL (1.0-4.3); LYMPH % 22.7 % (20.0-40.0); MEAN CELL VOLUME 89.6 fL (81.0-99.0); MEAN CORPUSCULAR HEMOGLOBIN 28.7 pg (27.0-31.0); MEAN PLATELET VOLUME 9.7 fL (7.2-11.7); MONO # 0.9 K/uL (0.0-0.8); MONO % 12.5 % (0.0-10.0); NEUT # 4.5 K/uL (1.8-7.0); NEUT % 61.3 % (50.0-75.0); RBC 3.22 Mil/uL (3.80-5.20); RED CELL DISTRIBUTION WIDTH 14.2 % (11.5-14.5); WHITE BLOOD COUNT 7.3 K/uL (4.8-10.8)
[2018-11-05 08:28] LABS: CALCIUM 9.1 mg/dl (8.6-10.4)
--- NOTE | 2018-11-05 08:45 | CON ---
DATE: 11/04/2018 INFECTIOUS DISEASE CONSULT HISTORY OF PRESENT ILLNESS: The patient is an 88-year-old female. She has history of hypertension, diabetes and urinary incontinence. She was brought in by ambulance with altered mental status as her blood sugar was 31 and she was admitted on 11/02/2018 and she was given glucose and she became alert, but she was very acidotic, also was complaining of burning urine and they did a urine culture and it is positive and she is on Rocephin at this time. I was asked to see her for positive blood cultures which was reported today. She had two sets of blood cultures which are gram-positive cocci in clusters, two sets, they were drawn on 11/02/2018. The patient, however, denies any metal presence or any pacemaker present in her body. She has had no previous surgeries, she says. Because she has renal insufficiency, she was supposed to have AV fistula placed in as renal is following. PAST MEDICAL HISTORY: Significant for hypertension, diabetes and urinary incontinence. MEDICATIONS: At home were Calciferol, Plavix, atenolol, glipizide, Tradjenta, Veltassa. Her medications here are Norvasc, she is on Rocephin 1 g daily, she is on Plavix, and I just added daptomycin from tomorrow. She did receive one dose of vancomycin on my instruction and she is on Epogen, ferrous gluconate, furosemide and glucagon, heparin subcu and hydralazine. Sodium bicarbonate, she is getting 1300 mg p.o. b.i.d. to alkalize her urine and she is on Kayexalate, vitamin B. ALLERGIES: SHE IS NOT ALLERGIC TO ANY MEDICINE. SURGICAL HISTORY: Significant for bilateral total knee about 15 years ago. FAMILY HISTORY: Mother has coronary artery disease; end-stage renal disease, on hemodialysis. She during 90s. Father had NC in 60s and sister and son have diabetes and so she has history of diabetes in her family. SOCIAL HISTORY: She denies any tobacco or any drug abuse. Lives alone in a senior community building and ambulates with a walker. REVIEW OF SYSTEMS: She did not have any chills or fever and no lethargy, but came in with altered mental status, has low sugar and no ears, nose, throat problems noted. She does have leg edema bilaterally. Denies any chest pain. No palpitations. No shortness of breath and no congestion respiratory sierra. No abdominal pain, constipation, diarrhea, nausea, or vomiting. She has history of urinary incontinence and dysuria and has no joint pain, neck pain or back pain at this time. No bleeding and no skin rashes reported. No numbness. No confusion. At this time, she is very alert. She denies any other hallucinations and does not have any fatigue. PHYSICAL EXAMINATION: VITAL SIGNS: On examination, I find her temperature is 97.6, pulse 56, blood pressure 177/65, respirations 20. HEENT: Head is atraumatic, normocephalic. Pupils are reacting to light. Mucous membranes are moist. NECK: Supple. JVP unable to evaluate at this time. LUNGS: Clear to auscultation. Decreased breath sounds bilaterally. HEART: S1, S2. Regular. No murmurs appreciated. ABDOMEN: Flabby, soft, nontender. EXTREMITIES: Remain with bilateral edema. LABORATORY DATA: Labs are noted. Labs show white count is 8.3, hemoglobin 9.7, hematocrit 30.6. The patient has BUN of 43, creatinine is 2.7 and micro sierra, the blood cultures came out two sets GPCs in clusters, one was drawn at 12:30, other one was at 1:00. I am not sure if they cleaned her well, but two sets are positive. Urine culture is E. coli. They did a , one is coagulase-negative staph and the other one is anaerobic while GPCs in clusters which they have not finalized. This was coagulase-negative staph. Aerobic and anaerobic bottles, both were positive, so we will wait until the cultures are finalized. ASSESSMENT AND PLAN: At this time, I have put her on Cubicin. She has no metal or wires or artificial hip or prosthetic things in her body and no problems with the intravenous site. This could be just skin contaminant, but it is in two sets; hence, I would start Cubicin tomorrow and reevaluate again and continue Rocephin for the Escherichia coli and since she does have merchandise coordinator on the case, we will get echo done. We will follow. Actually, she had an echo done on 11/03/[address] Awad and that report shows left ventricle is in the normal range, left ventricular filling pressure is increased, left ventricular atrium is moderately dilated, [id number] tricuspid regurgitation, and moderate severe pulmonary hypertension and right ventricular systolic pressure is estimated at greater than 60. So, she has high right ventricular pressure and probably moderate regurgitation. She has [id number] tricuspid regurgitation, [id number] pulmonary hypertension. No tricuspid prolapse or vegetation. Mitral valve has grade 2 pseudonormal filling. There is no aortic valvular vegetation mentioned and no mitral valve stenosis mentioned. So, at this time, we will see what happens with her cultures. They did do one blood culture today. Hermila Motley MD
--- NOTE | 2018-11-05 08:54 | CARD ---
APPROVED REPORT Date of service: 11/04/2018 Protocol: LEXISCAN Test Type: LEXISCAN Test Indications: cp Medical History: cp Target HR: 133 bpm Resting ECG: NSR Resting Heart Rate: 60 bpm Resting Blood Pressure: 122/80mmHg submaximum (85%): 113 bpm TEST SUMMARY [id number].01:[id number]/80.0. INFUSIONDOSE 100:[id number]/80.0. [id number]/80.0. PROCEDURE Pharmacologic stress testing was performed using 0.4mg per 5ml of regadenoson given intravenously over 7-10 seconds. POST EXERCISE Reason for Termination: Protocol Completed Target HR: No Max HR: 61 bpm 56% of Maximum Predicted HR: 133 bpm Exercise duration: 00:30 min:sec, 0 Stage Exercise capacity: 1.0METs Max Blood Pressure: 124/80mmHg Blood Pressure response to exercise: normal resting BP - appropriate response Heart Rate response to exercise: appropriate Chest Pain: No, none Angina index: 0 Arrhythmia: No, none ST Change: No, none Deviation: 0 mm INTERPRETATION Stress EKG Conclusion: NEGATIVE LEXISCAN STRESS TEST NORMAL BP RESPONSE TO LEXISCAN NUCLEAR STUDIES TOP BE READ SEPARATELY EXAM: Myocardial Perfusion STRESS/REST Imaging Protocol The imaging protocol used to acquire images was Stress Tc-99m/rest Tc-99m 1 day Rest Spect myocardial perfusion imaging was performed in supine position 45 minutes following the injection of 32.7 mCi of Tc-99 Myoview. Gated Stress Spect was performed 45 minutes after intravenous 12.6 mCi Tc-99 Myoview injection. The images were gated to evaluate regional wall motion and calculate ventricular ejection fraction.Images were reconstructed using backfilter projection method in short horizontal and verticle long axis. Spect slices were generated. RESTING DATA EDV89.96sdST1.80L/min ESV29.00mlMyocardial Zgeh404.00g Av. Heart Rate63.00bpm EF67.00% STRESS DATA EDV88.11sqHW6.70L/min ESV21.00mlMyocardial Pazx249.00g EF76.00% Regional WT score at stress:0.00 Regional WM score at stress:0.00 Summed WT score at stress:3.00 Av. Heart Rate70.00bpmSummed WM score at stress:0.00 LV Perf. Quant 17 Seg. SSS5.00 17 Seg. SRS5.00 17 Seg. SDS0.00 Stress Defect Extent (% LAD)0.00Rest Defect Extent (% LAD)0.00Rev. Defect Extent (% LAD)0.00 Stress Defect Extent (% LCX)40.00Rest Defect Extent (% LCX)36.30Rev. Defect Extent (% LCX)0.00 Stress Defect Extent (% RCA)0.00Rest Defect Extent (% RCA)0.00Rev. Defect Extent (% RCA)0.00 Stress Defect Extent (% APOLINAR)8.00Rest Defect Extent (% APOLINAR)7.00Rev. Defect Extent (% APOLINAR)0.00 Left Ventricle LV Function:Left ventricle systolic function is normal. The Ejection Fraction is >70%. Metabolism/Perfusion Defects: There is no stress-induced ischemia. Conclusion 1. There is no stress-induced ischemia. 2. Left ventricle systolic function is normal. 3. The Ejection Fraction is >70%.
[2018-11-05] MEDS: Multivitamin Vitamin B Complex (Nephro-Vite) Tab PO SCH (09:17)
[2018-11-05] MEDS ORDERED: Ergocalciferol 50,000 Intl Units Cap PO ONE (12:00)
[2018-11-05] MEDS: EPOETIN ALFA 4,000 UNIT/ML ML Dialysis SC SCH (13:00)
--- NOTE | 2018-11-05 15:08 | CP.PCM.PN ---
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 Hypertension control with meds as ordered. Maintain hemodynamics stable. Avoid hypotension. Patient not on ACEI/ARB due to hyperkalemia. started on norvasc and hydralazine today. further uptitration in meds as needed for HTN control Monitor Input/Output, daily weights and renal function with basic metabolic panel sodium bicarb 650 bid, lasix increased to 40 bid on veltassa as outpt started iron MVI and ESAs as epogen. once a month vit D as ordered pt seen by vascular surgery and was planned for AV access but better to defer it since recent blood cx + for [employer]. ID following Check urine analysis, spot protein/creatinine, albumin/creatinine ratio Anemia work up with TSAT/Ferritin/Vitamin B12/folate Check for 25-OH vitamin D, iPTH, phosphorus level. Dose meds/antibiotics for reduced GFR. Avoid fleets enema/magnesium based laxatives. Avoid nephrotoxins/NSAIDs/ iodinated contrast (unless needed emergently) Glycemic control. low K diet Further work up/management as per primary team Thanks for allowing me to participate in care of your patient. Will follow patient with you. Please call if any Qs. had d/w team Dr Pk Bonilla Office: [phone] Chief Complaint; low sugar Reason for consult: CKD management HPI: Pt is a 88 F with hx of diabetes Mellitus (20 years), hypertension (years) obesity hyperkalemia anemia presented with complaints of AMS and low sugar Denies OTC/herbal meds or NSAIDs No recent iodinated contrast exposure. No obvious episodes of low BP. pt feels usual health f/up with Dr Richardson in office and pt had accepted HD as future mode of dialysis. was aware about need for AV access soon ROS: Cardiovascular: No chest pain. Pulmonary: No shortness of breath Gastrointestinal: denies abdominal pain No nausea. No vomiting. Genitourinary: No pain while urinating. Denies blood in urine. All other negative except as mentioned in HPI Physical Examination: General Appearance: Comfortable, in no acute respiratory distress, co-operative . Vitals reviewed and noted as below Head; Atraumatic, normocephalic ENT: no ulcers no thrush. Tongue is midline. Oropharynx: no rash or ulcers. EYES: Pupils are equal, round and reactive to light accommodation. Eye muscles and extraocular movement intact. Sclera is anicteric. Neck; supple no lymphadenopathy, no thyromegaly or bruit Lungs: Normal respiratory rate/effort. Breath sounds bilateral equal and clearer Heart: Normal rate. s1s2 normal. No rub or gallop. Extremities: 2+ edema. No varicose veins Neurological: Patient is alert, awake and oriented to person, place and time. No focal deficit. Strength bilateral appropriate and equal Skin: Warm and dry. Normal turgor. No rash. Palpitation: Normal elasticity for age Abdomen: Abdomen is soft. Bowel sounds +. There is no abdominal tenderness, no guarding/rigidity no organomegaly Psych: normal insight and normal affect/mood MSK: no joint tenderness or swelling. Digits and nails normal, no deformity : kidney or bladder not palpable Labs/imaging reviewed. Past medical history, past surgical history, family history, social history, allergy reviewed and noted as below Family hx: no hx of CKD. Rest non-contributory UA suggests UTI Objective - Vital Signs/Intake and Output Vital Signs (last 24 hours): Temp Pulse Resp BP Pulse Ox 98.6 F 60 20 148/63 95 11/05/18 07:00 11/05/18 07:00 11/05/18 07:00 11/05/18 11:14 11/05/18 07:00 Intake and Output: 11/05/18 11/05/18 06:59 18:59 Intake Total 540 Balance 540 - Medications Medications: Current Medications Amlodipine Besylate (Norvasc) 10 mg PO DAILY [facility] Clopidogrel Bisulfate (Plavix) 75 mg PO DAILY [facility] Last Admin: 11/05/18 11:14 Dose: 75 mg Dextrose (Dextrose 50% Inj) 0 ml IV STAT PRN; Protocol PRN Reason: Hypoglycemia Protocol Dextrose (Glutose 15) 0 gm PO ONCE PRN; Protocol PRN Reason: Hypoglycemia Protocol Epoetin Abraham (Procrit) 4,000 unit SC TTS [facility] Last Admin: 11/05/18 13:00 Dose: 4,000 unit Ferrous Gluconate (Fergon) 324 mg PO TID [facility] Last Admin: 11/05/18 15:04 Dose: 324 mg Furosemide (Lasix) 40 mg PO BID [facility] Glucagon (Glucagen Diagnostic Kit) 0 mg IM STAT PRN; Protocol PRN Reason: Hypoglycemia Protocol Heparin Sodium (Porcine) (Heparin) 5,000 units SC Q8 [facility] Last Admin: 11/05/18 15:04 Dose: 5,000 units Hydralazine HCl (Apresoline) 25 mg PO QID [facility] Last Admin: 11/05/18 15:04 Dose: 25 mg Ceftriaxone Sodium 1 gm/ (Sodium Chloride) 100 mls @ 100 mls/hr IVPB DAILY [facility]; Protocol Last Admin: 11/05/18 11:15 Dose: 100 mls/hr Dextrose (Dextrose 5% In Water 1000 Ml) 1,000 mls @ 0 mls/hr IV .Q0M PRN; Protocol PRN Reason: Hypoglycemia Protocol Daptomycin 450 mg/ Sodium (Chloride) 100 mls @ 100 mls/hr IV Q24H [facility]; Protocol Stop: 11/10/18 14:01 Sodium Bicarbonate (Sodium Bicarbonate Tab) 650 mg PO BID [facility] Sodium Polystyrene Sulfonate (Kayexalate) 15 gm PO DAILY [facility] Last Admin: 11/05/18 11:14 Dose: Not Given Vitamin B Complex/Vit C/Folic Acid (Nephro-Daron) 1 tab PO 0800 [facility] Last Admin: 11/05/18 09:17 Dose: 1 tab - Labs Labs: 11/05/18 07:33 11/05/18 07:34 PT 10.8 SECONDS (9.7-12.2) 11/02/18 09:40 INR 1.0 11/02/18 09:40 APTT 28 SECONDS (21-34) 11/02/18 09:40
--- NOTE | 2018-11-05 16:08 | CP.PCM.PN ---
Subjective - Date & Time of Evaluation Date of Evaluation: 11/05/18 Time of Evaluation: 16:00 - Subjective Subjective: dictated Objective - Vital Signs/Intake and Output Vital Signs (last 24 hours): Temp Pulse Resp BP Pulse Ox 98.6 F 60 20 148/63 95 11/05/18 07:00 11/05/18 07:00 11/05/18 07:00 11/05/18 11:14 11/05/18 07:00 Intake and Output: 11/05/18 11/05/18 06:59 18:59 Intake Total 540 Balance 540 - Medications Medications: Current Medications Amlodipine Besylate (Norvasc) 10 mg PO DAILY [facility] Clopidogrel Bisulfate (Plavix) 75 mg PO DAILY [facility] Last Admin: 11/05/18 11:14 Dose: 75 mg Dextrose (Dextrose 50% Inj) 0 ml IV STAT PRN; Protocol PRN Reason: Hypoglycemia Protocol Dextrose (Glutose 15) 0 gm PO ONCE PRN; Protocol PRN Reason: Hypoglycemia Protocol Epoetin Abraham (Procrit) 4,000 unit SC TTS [facility] Last Admin: 11/05/18 13:00 Dose: 4,000 unit Ferrous Gluconate (Fergon) 324 mg PO TID [facility] Last Admin: 11/05/18 15:04 Dose: 324 mg Furosemide (Lasix) 40 mg PO BID [facility] Glucagon (Glucagen Diagnostic Kit) 0 mg IM STAT PRN; Protocol PRN Reason: Hypoglycemia Protocol Heparin Sodium (Porcine) (Heparin) 5,000 units SC Q8 [facility] Last Admin: 11/05/18 15:04 Dose: 5,000 units Hydralazine HCl (Apresoline) 25 mg PO QID [facility] Last Admin: 11/05/18 15:04 Dose: 25 mg Ceftriaxone Sodium 1 gm/ (Sodium Chloride) 100 mls @ 100 mls/hr IVPB DAILY [facility]; Protocol Last Admin: 11/05/18 11:15 Dose: 100 mls/hr Dextrose (Dextrose 5% In Water 1000 Ml) 1,000 mls @ 0 mls/hr IV .Q0M PRN; Protocol PRN Reason: Hypoglycemia Protocol Daptomycin 450 mg/ Sodium (Chloride) 100 mls @ 100 mls/hr IV Q48H [facility]; Protocol Sodium Bicarbonate (Sodium Bicarbonate Tab) 650 mg PO BID [facility] Sodium Polystyrene Sulfonate (Kayexalate) 15 gm PO DAILY [facility] Last Admin: 11/05/18 11:14 Dose: Not Given Vitamin B Complex/Vit C/Folic Acid (Nephro-Daron) 1 tab PO 0800 [facility] Last Admin: 11/05/18 09:17 Dose: 1 tab - Labs Labs: 11/05/18 07:33 11/05/18 07:34 PT 10.8 SECONDS (9.7-12.2) 11/02/18 09:40 INR 1.0 11/02/18 09:40 APTT 28 SECONDS (21-34) 11/02/18 09:40
[2018-11-05 22:59] LABS: SQUAMOUS EPITHIAL 3 /hpf (0-5); URINE BILIRUBIN NEGATIVE (NEGATIVE); URINE BLOOD NEGATIVE (NEGATIVE); URINE CLARITY Clear (Clear); URINE COLOR Straw (YELLOW); URINE GLUCOSE (UA) NORMAL (Normal); URINE LEUKOCYTE ESTERASE 1+ Leu/uL (Negative); URINE PROTEIN NEGATIVE (NEGATIVE); URINE UROBILINOGEN NORMAL mg/dL (0.2-1.0)
--- NOTE | 2018-11-06 00:22 | PN ---
DATE: 11/05/2018 INFECTIOUS DISEASE FOLLOWUP SUBJECTIVE: The patient is awake, alert. She said she had some cardiac procedures yesterday. She is sitting up. She denies any other complaints. She denied having any hardware or in her body. She came in with hypoglycemia and has UTI. PHYSICAL EXAMINATION: VITAL SIGNS: T-max is 97.4, pulse 57, blood pressure 179/64, respirations are 20. Has been afebrile. GENERAL: She is alert, awake, oriented. HEENT: Unremarkable. NECK: Supple. LUNGS: Clear. Decreased breath sounds bilaterally on bases. HEART: S1 and S2, regular. ABDOMEN: Soft, nontender. No guarding, no rigidity present. EXTREMITIES: Have mild edema present. LABORATORY DATA: White count is 7.3, hemoglobin 9.3, hematocrit 28.9, platelet count is 151. She has renal insufficiency. BUN is 43, creatinine is 2.8. ASSESSMENT AND PLAN: Her blood cultures, however, two sets were positive, and they were done at 12:30 and 1 o'clock, so it seems like they were done at different times. They did sensitivity only one set which shows it is methicillin-resistant Staphylococcus epidermidis. These were positive on her admission. She denies any recent hospitalization in any hospital. I am surprised why she would have two sets positive and since they did not do sensitivities on the other one we cannot even differentiate and both are contaminant. Urine culture has Escherichia coli. We will repeat the urine again. She is on Rocephin. She will need at least five to seven days for cystitis. She was supposed to get an arteriovenous fistula, but I think in view of the positive cultures at this time, I would hold off on that. I have left her on Cubicin at this time and would give at least three doses of Cubicin which will last in her body for seven days. She should have as outpatient blood cultures done and if those are negative, I think she should get an arteriovenous fistula. I do not see the urgency of getting the fistula in the wake of these real versus contaminant blood cultures. Hermila Motley MD [facility] # [phone]
[2018-11-06] MEDS: Multivitamin Vitamin B Complex (Nephro-Vite) Tab PO SCH (08:49)
[2018-11-06 08:51] LABS: BASO % 0.6 % (0.0-2.0); EOS # 0.2 K/uL (0.0-0.7); HEMOGLOBIN 9.9 g/dL (11.0-16.0); LYMPH # 2.6 K/uL (1.0-4.3); LYMPH % 32.3 % (20.0-40.0); MEAN CORPUSCULAR HEMOGLOBIN 28.5 pg (27.0-31.0); MEAN CORPUSCULAR HGB CONC 32.1 g/dL (33.0-37.0); MEAN PLATELET VOLUME 9.3 fL (7.2-11.7); MONO % 12.5 % (0.0-10.0); NEUT # 4.1 K/uL (1.8-7.0); NEUT % 51.6 % (50.0-75.0); NRBC % 0.1 % (0.0-2.0); RBC 3.48 Mil/uL (3.80-5.20); WHITE BLOOD COUNT 7.9 K/uL (4.8-10.8)
[2018-11-06 09:05] LABS: CALCIUM 8.9 mg/dl (8.6-10.4)
--- NOTE | 2018-11-06 09:59 | CP.PCM.PN ---
<Livier Choudhury Y - Last Filed: 11/06/18 15:32> Subjective - Date & Time of Evaluation Date of Evaluation: 11/06/18 Time of Evaluation: 07:40 - Subjective Subjective: PGY-1 Medicine Progress note for Dr. Tse Patient was seen and examined today at bedside in no acute distress. Nurse reports no overnight events. Patient has no new complaints. Denies chest pain, palpitation, shortness of breath, abdominal pain, difficultly urinating or having BM, headache, fever, chills. Objective - Vital Signs/Intake and Output Vital Signs (last 24 hours): Temp Pulse Resp BP Pulse Ox 98 F 58 L 20 158/66 H 96 11/06/18 08:08 11/06/18 08:08 11/06/18 08:08 11/06/18 09:31 11/06/18 08:08 Intake and Output: 11/06/18 11/06/18 06:59 18:59 Intake Total 780 Balance 780 - Medications Medications: Current Medications Amlodipine Besylate (Norvasc) 10 mg PO DAILY [facility] Last Admin: 11/06/18 09:31 Dose: 10 mg Clopidogrel Bisulfate (Plavix) 75 mg PO DAILY [facility] Last Admin: 11/06/18 09:30 Dose: 75 mg Dextrose (Dextrose 50% Inj) 0 ml IV STAT PRN; Protocol PRN Reason: Hypoglycemia Protocol Dextrose (Glutose 15) 0 gm PO ONCE PRN; Protocol PRN Reason: Hypoglycemia Protocol Epoetin Abraham (Procrit) 4,000 unit SC TTS [facility] Last Admin: 11/05/18 13:00 Dose: 4,000 unit Ferrous Gluconate (Fergon) 324 mg PO TID [facility] Last Admin: 11/06/18 09:31 Dose: 324 mg Furosemide (Lasix) 40 mg PO BID [facility] Last Admin: 11/06/18 09:31 Dose: 40 mg Glucagon (Glucagen Diagnostic Kit) 0 mg IM STAT PRN; Protocol PRN Reason: Hypoglycemia Protocol Heparin Sodium (Porcine) (Heparin) 5,000 units SC Q8 [facility] Last Admin: 11/06/18 06:33 Dose: 5,000 units Hydralazine HCl (Apresoline) 25 mg PO QID [facility] Last Admin: 11/06/18 09:31 Dose: 25 mg Ceftriaxone Sodium 1 gm/ (Sodium Chloride) 100 mls @ 100 mls/hr IVPB DAILY [facility]; Protocol Last Admin: 11/06/18 09:29 Dose: 100 mls/hr Dextrose (Dextrose 5% In Water 1000 Ml) 1,000 mls @ 0 mls/hr IV .Q0M PRN; Protocol PRN Reason: Hypoglycemia Protocol Daptomycin 450 mg/ Sodium (Chloride) 100 mls @ 100 mls/hr IV Q48H [facility]; Protocol Last Admin: 11/05/18 17:41 Dose: 100 mls/hr Sodium Bicarbonate (Sodium Bicarbonate Tab) 650 mg PO BID [facility] Last Admin: 11/06/18 09:31 Dose: 650 mg Sodium Polystyrene Sulfonate (Kayexalate) 15 gm PO DAILY [facility] Last Admin: 11/05/18 11:14 Dose: Not Given Vitamin B Complex/Vit C/Folic Acid (Nephro-Daron) 1 tab PO 0800 [facility] Last Admin: 11/06/18 08:49 Dose: 1 tab - Labs Labs: 11/06/18 08:41 11/06/18 08:41 PT 10.8 SECONDS (9.7-12.2) 11/02/18 09:40 INR 1.0 11/02/18 09:40 APTT 28 SECONDS (21-34) 11/02/18 09:40 - Constitutional Appears: Well, No Acute Distress - Head Exam Head Exam: ATRAUMATIC, NORMOCEPHALIC - Eye Exam Eye Exam: EOMI, Normal appearance - ENT Exam ENT Exam: Mucous Membranes Moist - Respiratory Exam Respiratory Exam: Clear to Ausculation Bilateral, NORMAL BREATHING PATTERN. absent: Rales, Rhonchi, Wheezes - Cardiovascular Exam Cardiovascular Exam: REGULAR RHYTHM, +S1, +S2. absent: Murmur - GI/Abdominal Exam GI & Abdominal Exam: Soft, Normal Bowel Sounds. absent: Tenderness Additional comments: obese - Extremities Exam Extremities Exam: Normal Capillary Refill Additional comments: IV access in R arm non-pitting edema bilaterally distal to knees - Neurological Exam Neurological Exam: Alert, Awake, Oriented x3 - Psychiatric Exam Psychiatric exam: Normal Affect, Normal Mood - Skin Skin Exam: Normal Color, Warm Assessment and Plan - Assessment and Plan (Free Text) Assessment: 88yo F with PMHx HTN, DM, urinary incontinence admitted for UTI, acidosis and possible acute on chronic kidney disease. She was brought in by EMS for low BG (31 in field) which has since normalized. Plan: Bactermia - WBC OA 11.7 - Blood Cx (11/02): gram pos cocci in clusters - repeat Blood Cx (11/04): negative x2 for 24 hours - ID consulted: Dr. Tiesha ren appreciated - Vanco 1gm IVPB once - Random Vanc level in AM - Daptomycin 450mg IVPB daily (starting 11/05) UTI - UA OA positive for nitrates, 3+ LE, 225 WBC with clumps, many bacteria - WBC OA 11.7 - Urine Cx (11/02): E. coli sensitive to Ceftriaxone - Ceftriaxone 1gm IVPB daily (started 11/02) - ID consulted: Dr. Tiesha ren appreciated Acidosis, possible Acute on Chronic CKD, AMS - VBG OA pH 7.22, lactate 0.8 - BUN/Cr OA 54/3.1. unknown baseline - CXR OA: mild to mod venous congestion. patchy increased markings at L lung base - EPO 4000u SC TTS - Ferrous Gluconate 324mg po TID - Sodium Bicarb 1300mg po BID - Nephrovite 1 tab PO 0800 - Nephro consulted: Dr. Thomas ren appreciated - Vasc Surg consulted: Dr. Ebony ren appreciated - AVF postponed in light of bacteremia, can be done outpatient - signed off 11/06 - Cardio consulted: Dr. Dale ren appreciated - ECHO (11/04): LVEF normal. moderate to sever pulm hypertension - Lexiscan stress test (11/04): no stress induced ischemia. LVEF >70% Diabetes Mellitus - resolved - Hgb A1c: 4.7 - Accuchecks ACBD - ISS stopped - hypoglycemia protocol - stop home Glipizide, home Tradjenta NF (wasn't started during stay) Hyperkalemia - stable - NF home Veltassa 8.4g powder - Kayexlate daily - monitor daily labs Acute Anemia - stable - Hbg 10.6 OA - Iron studies: Fe 41, TIBC 235, %sat 18, Ferritin 83.9 - VitB12: 463 - Nephro consulted: Dr. Thomas ren appreciated - EPO 4000u SC TTS - Ferrous Gluconate 324mg po TID - Sodium Bicarb 1300mg po BID - Nephrovite 1 tab PO 0800 - monitor H&H Hypertension - home Atenolol 50mg po daily held for bradycardia - Hydralazine 25mg po qid - Norvasc 5mg po daily - Lasix 40mg po daily - monitor vitals, avoid hypotension PPx - DVT: Heparin 5000u SC q8, Plavix 75mg daily, SCDs CI - Diet: Renal Diet - PT/OT Dispo: Per ID, AVF should be deferred until BCx are negative for more than 3 days. She will complete her course of abx on Mon 11/09. Repeat blood cultures in one week (11/11) likely as outpatient. If all BCx negative, patient is able to get AVF as outpatient. d/w Dr. Carmencita Choudhury PGY-1 <Sekou Tse - Last Filed: 11/06/18 19:09> Objective - Vital Signs/Intake and Output Vital Signs (last 24 hours): Temp Pulse Resp BP Pulse Ox 97.9 F 58 L 20 148/72 96 11/06/18 15:00 11/06/18 15:00 11/06/18 15:00 11/06/18 17:59 11/06/18 15:00 Intake and Output: 11/06/18 11/07/18 18:59 06:59 Intake Total 580 Balance 580 - Medications Medications: Current Medications Amlodipine Besylate (Norvasc) 10 mg PO DAILY [facility] Last Admin: 11/06/18 09:31 Dose: 10 mg Clopidogrel Bisulfate (Plavix) 75 mg PO DAILY [facility] Last Admin: 11/06/18 09:30 Dose: 75 mg Dextrose (Dextrose 50% Inj) 0 ml IV STAT PRN; Protocol PRN Reason: Hypoglycemia Protocol Dextrose (Glutose 15) 0 gm PO ONCE PRN; Protocol PRN Reason: Hypoglycemia Protocol Epoetin Abraham (Procrit) 4,000 unit SC TTS [facility] Last Admin: 11/05/18 13:00 Dose: 4,000 unit Ferrous Gluconate (Fergon) 324 mg PO TID [facility] Last Admin: 11/06/18 18:00 Dose: 324 mg Furosemide (Lasix) 40 mg PO BID [facility] Last Admin: 11/06/18 17:59 Dose: 40 mg Glucagon (Glucagen Diagnostic Kit) 0 mg IM STAT PRN; Protocol PRN Reason: Hypoglycemia Protocol Heparin Sodium (Porcine) (Heparin) 5,000 units SC Q8 [facility] Last Admin: 11/06/18 13:30 Dose: 5,000 units Hydralazine HCl (Apresoline) 25 mg PO QID [facility] Last Admin: 11/06/18 17:59 Dose: 25 mg Ceftriaxone Sodium 1 gm/ (Sodium Chloride) 100 mls @ 100 mls/hr IVPB DAILY [facility]; Protocol Last Admin: 11/06/18 09:29 Dose: 100 mls/hr Dextrose (Dextrose 5% In Water 1000 Ml) 1,000 mls @ 0 mls/hr IV .Q0M PRN; Protocol PRN Reason: Hypoglycemia Protocol Daptomycin 450 mg/ Sodium (Chloride) 100 mls @ 100 mls/hr IV Q48H [facility]; Protocol Last Admin: 11/05/18 17:41 Dose: 100 mls/hr Sodium Bicarbonate (Sodium Bicarbonate Tab) 650 mg PO BID [facility] Last Admin: 11/06/18 17:59 Dose: 650 mg Sodium Polystyrene Sulfonate (Kayexalate) 15 gm PO DAILY [facility] Last Admin: 11/05/18 11:14 Dose: Not Given Vitamin B Complex/Vit C/Folic Acid (Nephro-Daron) 1 tab PO 0800 [facility] Last Admin: 11/06/18 08:49 Dose: 1 tab - Labs Labs: 11/06/18 08:41 11/06/18 08:41 PT 10.8 SECONDS (9.7-12.2) 11/02/18 09:40 INR 1.0 11/02/18 09:40 APTT 28 SECONDS (21-34) 11/02/18 09:40 Attending/Attestation - Attestation I have personally seen and examined this patient.: Yes I have fully participated in the care of the patient.: Yes I have reviewed all pertinent clinical information, including history, physical exam and plan: Yes Notes (Text): Bactermia Anemia arf on ckd
--- NOTE | 2018-11-06 12:34 | CP.PCM.PN ---
Subjective - Date & Time of Evaluation Date of Evaluation: 11/06/18 Time of Evaluation: 12:00 - Subjective Subjective: dictated Objective - Vital Signs/Intake and Output Vital Signs (last 24 hours): Temp Pulse Resp BP Pulse Ox 98 F 58 L 20 158/66 H 96 11/06/18 08:08 11/06/18 08:08 11/06/18 08:08 11/06/18 09:31 11/06/18 08:08 Intake and Output: 11/06/18 11/06/18 06:59 18:59 Intake Total 780 Balance 780 - Medications Medications: Current Medications Amlodipine Besylate (Norvasc) 10 mg PO DAILY [facility] Last Admin: 11/06/18 09:31 Dose: 10 mg Clopidogrel Bisulfate (Plavix) 75 mg PO DAILY [facility] Last Admin: 11/06/18 09:30 Dose: 75 mg Dextrose (Dextrose 50% Inj) 0 ml IV STAT PRN; Protocol PRN Reason: Hypoglycemia Protocol Dextrose (Glutose 15) 0 gm PO ONCE PRN; Protocol PRN Reason: Hypoglycemia Protocol Epoetin Abraham (Procrit) 4,000 unit SC TTS [facility] Last Admin: 11/05/18 13:00 Dose: 4,000 unit Ferrous Gluconate (Fergon) 324 mg PO TID [facility] Last Admin: 11/06/18 09:31 Dose: 324 mg Furosemide (Lasix) 40 mg PO BID [facility] Last Admin: 11/06/18 09:31 Dose: 40 mg Glucagon (Glucagen Diagnostic Kit) 0 mg IM STAT PRN; Protocol PRN Reason: Hypoglycemia Protocol Heparin Sodium (Porcine) (Heparin) 5,000 units SC Q8 [facility] Last Admin: 11/06/18 06:33 Dose: 5,000 units Hydralazine HCl (Apresoline) 25 mg PO QID [facility] Last Admin: 11/06/18 09:31 Dose: 25 mg Ceftriaxone Sodium 1 gm/ (Sodium Chloride) 100 mls @ 100 mls/hr IVPB DAILY [facility]; Protocol Last Admin: 11/06/18 09:29 Dose: 100 mls/hr Dextrose (Dextrose 5% In Water 1000 Ml) 1,000 mls @ 0 mls/hr IV .Q0M PRN; Protocol PRN Reason: Hypoglycemia Protocol Daptomycin 450 mg/ Sodium (Chloride) 100 mls @ 100 mls/hr IV Q48H [facility]; Protocol Last Admin: 11/05/18 17:41 Dose: 100 mls/hr Sodium Bicarbonate (Sodium Bicarbonate Tab) 650 mg PO BID [facility] Last Admin: 11/06/18 09:31 Dose: 650 mg Sodium Polystyrene Sulfonate (Kayexalate) 15 gm PO DAILY [facility] Last Admin: 11/05/18 11:14 Dose: Not Given Vitamin B Complex/Vit C/Folic Acid (Nephro-Daron) 1 tab PO 0800 [facility] Last Admin: 11/06/18 08:49 Dose: 1 tab - Labs Labs: 11/06/18 08:41 11/06/18 08:41 PT 10.8 SECONDS (9.7-12.2) 11/02/18 09:40 INR 1.0 11/02/18 09:40 APTT 28 SECONDS (21-34) 11/02/18 09:40
--- NOTE | 2018-11-06 14:12 | PN ---
DATE: 11/06/2018 SUBJECTIVE: The patient is sitting in the chair and trying to eat. She denies any complaints. Her leg swellings are decreasing. She is not up for any fistula at this time, as she did have some positive cultures; since there were two of them, we are giving IV antibiotics. PHYSICAL EXAMINATION: VITAL SIGNS: T-max is 98, pulse 58, blood pressure 158/66, respirations are 20. HEAD: Atraumatic, normocephalic. NECK: Supple. LUNGS: Decreased breath sounds. HEART: S1, S2, regular. ABDOMEN: Soft, non-flabby, nontender. EXTREMITIES: Bilateral edema. LABORATORY DATA: White count is 7.9, hemoglobin 9.9, hematocrit 31, platelet count is 171. She denies any dysuria. BUN is 37, creatinine is 2.8. ASSESSMENT AND PLAN: She remains with chronic renal failure. Her urine culture was Escherichia coli, I had asked for a repeat urine culture and we will treat it as cystitis in this patient with renal failure. She also had two sets of coagulase negative staphylococcus; however, they may be contaminant, but she is going to get Cubicin every other day for three doses. She could get a fistula on the next appointment, once she is stable. Hermila Motley MD
--- NOTE | 2018-11-06 14:12 | CP.PCM.PN ---
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 Hypertension control with meds as ordered. Maintain hemodynamics stable. Avoid hypotension. Patient not on ACEI/ARB due to hyperkalemia. started on norvasc and hydralazine today. further uptitration in meds as needed for HTN control Monitor Input/Output, daily weights and renal function with basic metabolic panel sodium bicarb 650 bid, lasix increased to 40 bid on veltassa as outpt started iron MVI and ESAs as epogen. 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 ID following Check urine analysis, spot protein/creatinine, albumin/creatinine ratio Anemia work up with TSAT/Ferritin/Vitamin B12/folate Check for 25-OH vitamin D, iPTH, phosphorus level. Dose meds/antibiotics for reduced GFR. Avoid fleets enema/magnesium based laxatives. Avoid nephrotoxins/NSAIDs/ iodinated contrast (unless needed emergently) Glycemic control. low K diet Further work up/management as per primary team Thanks for allowing me to participate in care of your patient. Will follow patient with you. Please call if any Qs. had d/w team Dr Pk Bonilla Office: [phone] Chief Complaint; low sugar Reason for consult: CKD management HPI: Pt is a 88 F with hx of diabetes Mellitus (20 years), hypertension (years) obesity hyperkalemia anemia presented with complaints of AMS and low sugar Denies OTC/herbal meds or NSAIDs No recent iodinated contrast exposure. No obvious episodes of low BP. pt feels usual health f/up with Dr Richardson in office and pt had accepted HD as future mode of dialysis. was aware about need for AV access soon ROS: Cardiovascular: No chest pain. Pulmonary: No shortness of breath Gastrointestinal: denies abdominal pain No nausea. No vomiting. Genitourinary: No pain while urinating. Denies blood in urine. All other negative except as mentioned in HPI Physical Examination: General Appearance: Comfortable, in no acute respiratory distress, co-operative . Vitals reviewed and noted as below Head; Atraumatic, normocephalic ENT: no ulcers no thrush. Tongue is midline. Oropharynx: no rash or ulcers. EYES: Pupils are equal, round and reactive to light accommodation. Eye muscles and extraocular movement intact. Sclera is anicteric. Neck; supple no lymphadenopathy, no thyromegaly or bruit Lungs: Normal respiratory rate/effort. Breath sounds bilateral equal and clearer Heart: Normal rate. s1s2 normal. No rub or gallop. Extremities: 1-2+ edema. No varicose veins Neurological: Patient is alert, awake and oriented to person, place and time. No focal deficit. Strength bilateral appropriate and equal Skin: Warm and dry. Normal turgor. No rash. Palpitation: Normal elasticity for a ge Abdomen: Abdomen is soft. Bowel sounds +. There is no abdominal tenderness, no guarding/rigidity no organomegaly Psych: normal insight and normal affect/mood MSK: no joint tenderness or swelling. Digits and nails normal, no deformity : kidney or bladder not palpable Labs/imaging reviewed. Past medical history, past surgical history, family history, social history, allergy reviewed and noted as below Family hx: no hx of CKD. Rest non-contributory UA suggests UTI Objective - Vital Signs/Intake and Output Vital Signs (last 24 hours): Temp Pulse Resp BP Pulse Ox 98 F 58 L 20 158/66 H 96 11/06/18 08:08 11/06/18 08:08 11/06/18 08:08 11/06/18 09:31 11/06/18 08:08 Intake and Output: 11/06/18 11/06/18 06:59 18:59 Intake Total 780 Balance 780 - Medications Medications: Current Medications Amlodipine Besylate (Norvasc) 10 mg PO DAILY [facility] Last Admin: 11/06/18 09:31 Dose: 10 mg Clopidogrel Bisulfate (Plavix) 75 mg PO DAILY [facility] Last Admin: 11/06/18 09:30 Dose: 75 mg Dextrose (Dextrose 50% Inj) 0 ml IV STAT PRN; Protocol PRN Reason: Hypoglycemia Protocol Dextrose (Glutose 15) 0 gm PO ONCE PRN; Protocol PRN Reason: Hypoglycemia Protocol Epoetin Abraham (Procrit) 4,000 unit SC TTS [facility] Last Admin: 11/05/18 13:00 Dose: 4,000 unit Ferrous Gluconate (Fergon) 324 mg PO TID [facility] Last Admin: 11/06/18 13:30 Dose: 324 mg Furosemide (Lasix) 40 mg PO BID [facility] Last Admin: 11/06/18 09:31 Dose: 40 mg Glucagon (Glucagen Diagnostic Kit) 0 mg IM STAT PRN; Protocol PRN Reason: Hypoglycemia Protocol Heparin Sodium (Porcine) (Heparin) 5,000 units SC Q8 [facility] Last Admin: 11/06/18 13:30 Dose: 5,000 units Hydralazine HCl (Apresoline) 25 mg PO QID [facility] Last Admin: 11/06/18 13:30 Dose: 25 mg Ceftriaxone Sodium 1 gm/ (Sodium Chloride) 100 mls @ 100 mls/hr IVPB DAILY [facility]; Protocol Last Admin: 11/06/18 09:29 Dose: 100 mls/hr Dextrose (Dextrose 5% In Water 1000 Ml) 1,000 mls @ 0 mls/hr IV .Q0M PRN; Protocol PRN Reason: Hypoglycemia Protocol Daptomycin 450 mg/ Sodium (Chloride) 100 mls @ 100 mls/hr IV Q48H [facility]; Protocol Last Admin: 11/05/18 17:41 Dose: 100 mls/hr Sodium Bicarbonate (Sodium Bicarbonate Tab) 650 mg PO BID [facility] Last Admin: 11/06/18 09:31 Dose: 650 mg Sodium Polystyrene Sulfonate (Kayexalate) 15 gm PO DAILY [facility] Last Admin: 11/05/18 11:14 Dose: Not Given Vitamin B Complex/Vit C/Folic Acid (Nephro-Daron) 1 tab PO 0800 [facility] Last Admin: 11/06/18 08:49 Dose: 1 tab - Labs Labs: 11/06/18 08:41 11/06/18 08:41 PT 10.8 SECONDS (9.7-12.2) 11/02/18 09:40 INR 1.0 11/02/18 09:40 APTT 28 SECONDS (21-34) 11/02/18 09:40
--- NOTE | 2018-11-07 03:15 | CP.PCM.PN ---
<Nancy Vick - Last Filed: 11/07/18 06:59> Subjective - Date & Time of Evaluation Date of Evaluation: 11/07/18 Time of Evaluation: 06:50 - Subjective Subjective: Patient examined at bedside. No acute overnight events. Patient reports she feels well, has been eating and voiding without complaint. Pt reports she has not been ambulating too much, it was encouraged. Denies complaints including chest pain, SOB, nausea, diarrhea. Objective - Vital Signs/Intake and Output Vital Signs (last 24 hours): Temp Pulse Resp BP Pulse Ox 97.9 F 60 20 145/55 L 94 L 11/07/18 00:00 11/07/18 00:00 11/07/18 00:00 11/07/18 00:00 11/07/18 00:00 Intake and Output: 11/06/18 11/07/18 18:59 06:59 Intake Total 580 Balance 580 - Medications Medications: Current Medications Amlodipine Besylate (Norvasc) 10 mg PO DAILY [facility] Last Admin: 11/06/18 09:31 Dose: 10 mg Clopidogrel Bisulfate (Plavix) 75 mg PO DAILY [facility] Last Admin: 11/06/18 09:30 Dose: 75 mg Dextrose (Dextrose 50% Inj) 0 ml IV STAT PRN; Protocol PRN Reason: Hypoglycemia Protocol Dextrose (Glutose 15) 0 gm PO ONCE PRN; Protocol PRN Reason: Hypoglycemia Protocol Epoetin Abraham (Procrit) 4,000 unit SC TTS [facility] Last Admin: 11/05/18 13:00 Dose: 4,000 unit Ferrous Gluconate (Fergon) 324 mg PO TID [facility] Last Admin: 11/06/18 18:00 Dose: 324 mg Furosemide (Lasix) 40 mg PO BID [facility] Last Admin: 11/06/18 17:59 Dose: 40 mg Glucagon (Glucagen Diagnostic Kit) 0 mg IM STAT PRN; Protocol PRN Reason: Hypoglycemia Protocol Heparin Sodium (Porcine) (Heparin) 5,000 units SC Q8 [facility] Last Admin: 11/06/18 21:43 Dose: 5,000 units Hydralazine HCl (Apresoline) 25 mg PO QID [facility] Last Admin: 11/06/18 21:42 Dose: 25 mg Ceftriaxone Sodium 1 gm/ (Sodium Chloride) 100 mls @ 100 mls/hr IVPB DAILY [facility]; Protocol Last Admin: 11/06/18 09:29 Dose: 100 mls/hr Dextrose (Dextrose 5% In Water 1000 Ml) 1,000 mls @ 0 mls/hr IV .Q0M PRN; Protocol PRN Reason: Hypoglycemia Protocol Daptomycin 450 mg/ Sodium (Chloride) 100 mls @ 100 mls/hr IV Q48H [facility]; Protocol Last Admin: 11/05/18 17:41 Dose: 100 mls/hr Sodium Bicarbonate (Sodium Bicarbonate Tab) 650 mg PO BID [facility] Last Admin: 11/06/18 17:59 Dose: 650 mg Sodium Polystyrene Sulfonate (Kayexalate) 15 gm PO DAILY [facility] Last Admin: 11/05/18 11:14 Dose: Not Given Vitamin B Complex/Vit C/Folic Acid (Nephro-Daron) 1 tab PO 0800 [facility] Last Admin: 11/06/18 08:49 Dose: 1 tab - Labs Labs: 11/06/18 08:41 11/06/18 08:41 PT 10.8 SECONDS (9.7-12.2) 11/02/18 09:40 INR 1.0 11/02/18 09:40 APTT 28 SECONDS (21-34) 11/02/18 09:40 - Constitutional Appears: Non-toxic, No Acute Distress - Head Exam Head Exam: ATRAUMATIC, NORMAL INSPECTION, NORMOCEPHALIC - Eye Exam Eye Exam: EOMI, Normal appearance - ENT Exam ENT Exam: Mucous Membranes Moist, Normal Exam - Neck Exam Neck Exam: Normal Inspection - Respiratory Exam Respiratory Exam: Clear to Ausculation Bilateral, NORMAL BREATHING PATTERN. absent: Respiratory Distress - Cardiovascular Exam Cardiovascular Exam: REGULAR RHYTHM, +S1, +S2. absent: Tachycardia - GI/Abdominal Exam GI & Abdominal Exam: Soft, Normal Bowel Sounds. absent: Distended, Tenderness Additional comments: obese - Extremities Exam Extremities Exam: Pedal Edema (1+ b/l). absent: Calf Tenderness, Normal Inspection (severly dry skin) - Neurological Exam Neurological Exam: Alert, Awake - Psychiatric Exam Psychiatric exam: Normal Affect, Normal Mood - Skin Skin Exam: Dry, Intact, Normal Color, Warm Assessment and Plan - Assessment and Plan (Free Text) Assessment: 88 year old female w/ PMHx of HTN, DM, urinary incontinence admitted for evaluation of AMS 2/2 hypoglycemia, undergoing treatment of UTI and bacteremia Plan: Bactermia Blood cx(11/02): positive for coag negative staph Blood cx(11/04): prelim no growth IV Abx, Dapto 450mg q48h ID consult, Dr. Motley UTI U cx(11/02): positive for E. Coli IV Abx, rocephin 1g qd CKD, stage 4 lasix 40mg po BID Sodium bicarb 650mg po BID Kayexelate 15g po qd Nephro consult, Dr. Richardson Sx consult, Dr. Beck; no plans for AVF currently HTN hydralazine 25mg po QID Norvasc 10mg po qd echo: mod/severe pulm HTN, mild aortic, tricuspid, mitral regurgitation Cardio consult, Dr. Hunter Anemia procrit 4000u TTS ferrous gluconate 324mg po TID DM2, resolved hgb a1c 4.7 accuchecks ACHS ISS-held hypoglycemia protocol Ppx VTE: heparin 5000 q8 GI: not indicated Renal diet PT/OT -Nancy Vick, PGY-1 <Kassi Austin - Last Filed: 11/07/18 19:40> Objective - Vital Signs/Intake and Output Vital Signs (last 24 hours): Temp Pulse Resp BP Pulse Ox 97.8 F 61 20 183/69 H 95 11/07/18 09:08 11/07/18 09:08 11/07/18 09:08 11/07/18 10:51 11/07/18 09:08 Intake and Output: 11/07/18 11/07/18 06:59 18:59 Intake Total 300 Balance 300 - Medications Medications: Current Medications Amlodipine Besylate (Norvasc) 10 mg PO DAILY [facility] Last Admin: 11/07/18 10:51 Dose: 10 mg Clopidogrel Bisulfate (Plavix) 75 mg PO DAILY [facility] Last Admin: 11/07/18 10:51 Dose: 75 mg Dextrose (Dextrose 50% Inj) 0 ml IV STAT PRN; Protocol PRN Reason: Hypoglycemia Protocol Dextrose (Glutose 15) 0 gm PO ONCE PRN; Protocol PRN Reason: Hypoglycemia Protocol Epoetin Abraham (Procrit) 4,000 unit SC TTS [facility] Last Admin: 11/07/18 10:50 Dose: 4,000 unit Ferrous Gluconate (Fergon) 324 mg PO TID [facility] Last Admin: 03/16/19 14:11 Dose: 324 mg Furosemide (Lasix) 40 mg PO BID [facility] Last Admin: 11/07/18 10:51 Dose: 40 mg Glucagon (Glucagen Diagnostic Kit) 0 mg IM STAT PRN; Protocol PRN Reason: Hypoglycemia Protocol Heparin Sodium (Porcine) (Heparin) 5,000 units SC Q8 [facility] Last Admin: 11/07/18 14:11 Dose: 5,000 units Hydralazine HCl (Apresoline) 25 mg PO QID [facility] Last Admin: 11/07/18 14:11 Dose: 25 mg Ceftriaxone Sodium 1 gm/ (Sodium Chloride) 100 mls @ 100 mls/hr IVPB DAILY [facility]; Protocol Last Admin: 11/07/18 10:51 Dose: 100 mls/hr Dextrose (Dextrose 5% In Water 1000 Ml) 1,000 mls @ 0 mls/hr IV .Q0M PRN; Protocol PRN Reason: Hypoglycemia Protocol Daptomycin 450 mg/ Sodium (Chloride) 100 mls @ 100 mls/hr IV Q48H [facility]; Protocol Last Admin: 11/05/18 17:41 Dose: 100 mls/hr Sodium Bicarbonate (Sodium Bicarbonate Tab) 650 mg PO BID [facility] Last Admin: 11/07/18 10:51 Dose: 650 mg Sodium Polystyrene Sulfonate (Kayexalate) 15 gm PO DAILY [facility] Last Admin: 11/05/18 11:14 Dose: Not Given Vitamin B Complex/Vit C/Folic Acid (Nephro-Daron) 1 tab PO 0800 [facility] Last Admin: 11/07/18 08:43 Dose: 1 tab - Labs Labs: 11/07/18 07:10 11/07/18 07:10 PT 10.8 SECONDS (9.7-12.2) 11/02/18 09:40 INR 1.0 11/02/18 09:40 APTT 28 SECONDS (21-34) 11/02/18 09:40 Attending/Attestation - Attestation I have personally seen and examined this patient.: Yes I have fully participated in the care of the patient.: Yes I have reviewed all pertinent clinical information, including history, physical exam and plan: Yes Notes (Text): seen and examined by me 1.Bacteremia 2.Chronic renal failure stage 4 3.HTN 4.DM 5Anemia
[2018-11-07 07:30] LABS: BASO % 0.6 % (0.0-2.0); EOS # 0.3 K/uL (0.0-0.7); EOS % 3.8 % (0.0-4.0); HEMOGLOBIN 9.6 g/dL (11.0-16.0); LYMPH # 1.9 K/uL (1.0-4.3); MEAN CELL VOLUME 88.2 fL (81.0-99.0); MEAN CORPUSCULAR HEMOGLOBIN 28.9 pg (27.0-31.0); MEAN CORPUSCULAR HGB CONC 32.7 g/dL (33.0-37.0); MEAN PLATELET VOLUME 9.5 fL (7.2-11.7); MONO # 0.8 K/uL (0.0-0.8); MONO % 11.2 % (0.0-10.0); NEUT # 4.3 K/uL (1.8-7.0); NEUT % 58.4 % (50.0-75.0); NRBC % 0.1 % (0.0-2.0); RBC 3.32 Mil/uL (3.80-5.20); RED CELL DISTRIBUTION WIDTH 13.9 % (11.5-14.5); WHITE BLOOD COUNT 7.3 K/uL (4.8-10.8)
[2018-11-07 07:58] LABS: CALCIUM 9.2 mg/dl (8.6-10.4)
[2018-11-07] MEDS: Multivitamin Vitamin B Complex (Nephro-Vite) Tab PO SCH (08:43)
[2018-11-07] MEDS: EPOETIN ALFA 4,000 UNIT/ML ML Dialysis SC SCH (10:50)
--- NOTE | 2018-11-07 14:34 | CP.PCM.PN ---
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 Hypertension control with meds as ordered. Maintain hemodynamics stable. Avoid hypotension. Patient not on ACEI/ARB due to hyperkalemia. started on norvasc and hydralazine today. further uptitration in meds as needed for HTN control Monitor Input/Output, daily weights and renal function with basic metabolic panel sodium bicarb 650 bid, lasix increased to 40 bid on veltassa as outpt started iron MVI and ESAs as epogen. once a month vit D as ordered pt seen by vascular surgery and was planned for AV access but better to defer it to later as outpt since recent blood cx + for POOL MANAGER likely contaminant. ID following Check urine analysis, spot protein/creatinine, albumin/creatinine ratio Anemia work up with TSAT/Ferritin/Vitamin B12/folate Check for 25-OH vitamin D, iPTH, phosphorus level. Dose meds/antibiotics for reduced GFR. Avoid fleets enema/magnesium based laxatives. Avoid nephrotoxins/NSAIDs/ iodinated contrast (unless needed emergently) Glycemic control. low K diet Further work up/management as per primary team Thanks for allowing me to participate in care of your patient. Will follow patient with you. Please call if any Qs. had d/w team Dr Pk Bonilla Office: [phone] Chief Complaint; low sugar Reason for consult: CKD management HPI: Pt is a 88 F with hx of diabetes Mellitus (20 years), hypertension (years) obesity hyperkalemia anemia presented with complaints of AMS and low sugar Denies OTC/herbal meds or NSAIDs No recent iodinated contrast exposure. No obvious episodes of low BP. pt feels usual health f/up with Dr Richardson in office and pt had accepted HD as future mode of dialysis. was aware about need for AV access soon ROS: Cardiovascular: No chest pain. Pulmonary: No shortness of breath Gastrointestinal: denies abdominal pain No nausea. No vomiting. Genitourinary: No pain while urinating. Denies blood in urine. All other negative except as mentioned in HPI Physical Examination: General Appearance: Comfortable, in no acute respiratory distress, co-operative . Vitals reviewed and noted as below Head; Atraumatic, normocephalic ENT: no ulcers no thrush. Tongue is midline. Oropharynx: no rash or ulcers. EYES: Pupils are equal, round and reactive to light accommodation. Eye muscles and extraocular movement intact. Sclera is anicteric. Neck; supple no lymphadenopathy, no thyromegaly or bruit Lungs: Normal respiratory rate/effort. Breath sounds bilateral equal and clearer Heart: Normal rate. s1s2 normal. No rub or gallop. Extremities: 1-2+ edema. No varicose veins Neurological: Patient is alert, awake and oriented to person, place and time. No focal deficit. Strength bilateral appropriate and equal Skin: Warm and dry. Normal turgor. No rash. Palpitation: Normal elasticity for age Abdomen: Abdomen is soft. Bowel sounds +. There is no abdominal tenderness, no guarding/rigidity no organomegaly Psych: normal insight and normal affect/mood MSK: no joint tenderness or swelling. Digits and nails normal, no deformity : kidney or bladder not palpable Labs/imaging reviewed. Past medical history, past surgical history, family history, social history, allergy reviewed and noted as below Family hx: no hx of CKD. Rest non-contributory UA suggests UTI Objective - Vital Signs/Intake and Output Vital Signs (last 24 hours): Temp Pulse Resp BP Pulse Ox 97.8 F 61 20 183/69 H 95 11/07/18 09:08 11/07/18 09:08 11/07/18 09:08 11/07/18 10:51 11/07/18 09:08 Intake and Output: 11/07/18 11/07/18 06:59 18:59 Intake Total 300 Balance 300 - Medications Medications: Current Medications Amlodipine Besylate (Norvasc) 10 mg PO DAILY [facility] Last Admin: 11/07/18 10:51 Dose: 10 mg Clopidogrel Bisulfate (Plavix) 75 mg PO DAILY [facility] Last Admin: 11/07/18 10:51 Dose: 75 mg Dextrose (Dextrose 50% Inj) 0 ml IV STAT PRN; Protocol PRN Reason: Hypoglycemia Protocol Dextrose (Glutose 15) 0 gm PO ONCE PRN; Protocol PRN Reason: Hypoglycemia Protocol Epoetin Abraham (Procrit) 4,000 unit SC TTS [facility] Last Admin: 11/07/18 10:50 Dose: 4,000 unit Ferrous Gluconate (Fergon) 324 mg PO TID [facility] Last Admin: 11/07/18 14:11 Dose: 324 mg Furosemide (Lasix) 40 mg PO BID [facility] Last Admin: 11/07/18 10:51 Dose: 40 mg Glucagon (Glucagen Diagnostic Kit) 0 mg IM STAT PRN; Protocol PRN Reason: Hypoglycemia Protocol Heparin Sodium (Porcine) (Heparin) 5,000 units SC Q8 [facility] Last Admin: 11/07/18 14:11 Dose: 5,000 units Hydralazine HCl (Apresoline) 25 mg PO QID [facility] Last Admin: 11/07/18 14:11 Dose: 25 mg Ceftriaxone Sodium 1 gm/ (Sodium Chloride) 100 mls @ 100 mls/hr IVPB DAILY [facility]; Protocol Last Admin: 11/07/18 10:51 Dose: 100 mls/hr Dextrose (Dextrose 5% In Water 1000 Ml) 1,000 mls @ 0 mls/hr IV .Q0M PRN; Protocol PRN Reason: Hypoglycemia Protocol Daptomycin 450 mg/ Sodium (Chloride) 100 mls @ 100 mls/hr IV Q48H [facility]; Protocol Last Admin: 11/05/18 17:41 Dose: 100 mls/hr Sodium Bicarbonate (Sodium Bicarbonate Tab) 650 mg PO BID [facility] Last Admin: 11/07/18 10:51 Dose: 650 mg Sodium Polystyrene Sulfonate (Kayexalate) 15 gm PO DAILY [facility] Last Admin: 11/05/18 11:14 Dose: Not Given Vitamin B Complex/Vit C/Folic Acid (Nephro-Daron) 1 tab PO 0800 [facility] Last Admin: 11/07/18 08:43 Dose: 1 tab - Labs Labs: 11/07/18 07:10 11/07/18 07:10 PT 10.8 SECONDS (9.7-12.2) 11/02/18 09:40 INR 1.0 11/02/18 09:40 APTT 28 SECONDS (21-34) 11/02/18 09:40
--- NOTE | 2018-11-07 21:36 | CP.PCM.PN ---
Subjective - Date & Time of Evaluation Date of Evaluation: 11/05/18 Time of Evaluation: 08:15 - Subjective Subjective: Patient seen and evaluated No cardiac events noted Review of Systems - Constitutional Constitutional: absent: Chills, Fever, Headache, Increased Appetite, Lethargy, Night Sweats, Weakness - EENT Eyes: absent: Blurred Vision, Change in Vision, Diplopia Ears: absent: Decreased Hearing, Tinnitus, Dizziness Nose/Mouth/Throat: absent: Nasal Congestion, Nasal Discharge - Cardiovascular Cardiovascular: Edema, Leg Edema. absent: Chest Pain, Dyspnea, Palpitations, Syncope - Respiratory Respiratory: absent: Dyspnea, Chest Congestion - Gastrointestinal Gastrointestinal: absent: Abdominal Pain, Constipation, Diarrhea, Nausea, Vomiting - Genitourinary Genitourinary: Dysuria, Urinary Incontinence, Urinary Urgency. absent: Bladder Distension - Musculoskeletal Musculoskeletal: absent: Abnormal Gait, Back Pain, Neck Pain - Integumentary Integumentary: Swelling. absent: Bleeding Lesions, Rash, Unusual Bruising - Neurological Neurological: absent: Numbness, Syncope, Tingling - Psychiatric Psychiatric: absent: Confusion, Hallucinations - Endocrine Endocrine: absent: Fatigue - Hematologic/Lymphatic Hematologic: absent: Easy Bleeding, Easy Bruising Physical Exam - Constitutional Appears: Well, No Acute Distress - Head Exam Head Exam: ATRAUMATIC, NORMOCEPHALIC - Eye Exam Eye Exam: EOMI, PERRL Pupil Exam: NORMAL ACCOMODATION - ENT Exam ENT Exam: Mucous Membranes Moist - Neck Exam Neck exam: Negative for: Lymphadenopathy - Respiratory Exam Respiratory Exam: Clear to Auscultation Bilateral, NORMAL BREATHING PATTERN. absent: Rales, Rhonchi, Wheezes - Cardiovascular Exam Cardiovascular Exam: REGULAR RHYTHM, +S1, +S2. absent: Systolic Murmur - GI/Abdominal Exam GI & Abdominal Exam: Soft. absent: Guarding, Tenderness Additional comments: obese - Exam External exam: NORMAL EXTERNAL EXAM - Extremities Exam Extremities exam: Positive for: normal capillary refill, pedal pulses present - Neurological Exam Neurological exam: Alert, CN II-XII Intact, Oriented x3 Additional comments: brachio reflex 4/4 bilaterally, patellar reflex 2/4 bilaterally - Psychiatric Exam Psychiatric exam: Normal Affect, Normal Mood - Skin Skin Exam: Normal Color, Warm - EKG Data EKG Interpreted by: ER Physician EKG shows normal: Sinus rhythm Rate: Bradycardia Assessment & Plan - Assessment and Plan (Free Text) Assessment: 88yo F with PMHx HTN, DM, urinary incontinence admitted for acidosis and possible acute on chronic kidney disease. She was brought in by EMS for low BG (31 in field) which has since normalized. Plan: Acidosis, possible Acute on Chronic CKD - VBG OA pH 7.22, lactate 0.8 - BUN/Cr OA 54/3.1. unknown baseline - CXR OA: mild to mod venous congestion. patchy increased markings at L lung base - Nephro consulted: Dr. Thomas Richardson - help appreciated - Vasc Surg consulted: Dr. Beck - help appreciated - L UE restriction - tentatively scheduled for AVF placement on 11/04 Diabetes Mellitus - f/u Hgb A1c - Accuchecks ACHS - ISS low - hypoglycemia protocol - restart home Glipizide 10mg po BIDAC - NF home Tradjenta 5mg po daily Hyperkalemia - NF home Veltassa 8.4g powder - Kayexlate once - monitor daily labs UTI - UA OA positive for nitrates, 3+ LE, 225 WBC with clumps, many bacteria - WBC OA 11.7 - f/u Urine Cx (11/02): received - f/f Blood Cx (11/02): received - Ceftriaxone 1gm IVPB daily (started 11/02) Hypertension - home Atenolol 50mg po daily held for bradycardia - Hydralazine 25mg po qid PPx - DVT: Heparin 5000u SC q8, Plavix 75mg daily, SCDs CI - Diet: Renal Diet Objective - Vital Signs/Intake and Output Vital Signs (last 24 hours): Temp Pulse Resp BP Pulse Ox 97.9 F 61 20 132/70 97 11/07/18 15:10 11/07/18 15:10 11/07/18 15:10 11/07/18 17:18 11/07/18 15:10 Intake and Output: 11/07/18 11/08/18 18:59 06:59 Intake Total 580 Balance 580 - Medications Medications: Current Medications Amlodipine Besylate (Norvasc) 10 mg PO DAILY [facility] Last Admin: 11/07/18 10:51 Dose: 10 mg Clopidogrel Bisulfate (Plavix) 75 mg PO DAILY [facility] Last Admin: 11/07/18 10:51 Dose: 75 mg Dextrose (Dextrose 50% Inj) 0 ml IV STAT PRN; Protocol PRN Reason: Hypoglycemia Protocol Dextrose (Glutose 15) 0 gm PO ONCE PRN; Protocol PRN Reason: Hypoglycemia Protocol Epoetin Abraham (Procrit) 4,000 unit SC TTS [facility] Last Admin: 11/07/18 10:50 Dose: 4,000 unit Ferrous Gluconate (Fergon) 324 mg PO TID [facility] Last Admin: 11/07/18 17:21 Dose: 324 mg Furosemide (Lasix) 40 mg PO BID [facility] Last Admin: 11/07/18 17:18 Dose: 40 mg Glucagon (Glucagen Diagnostic Kit) 0 mg IM STAT PRN; Protocol PRN Reason: Hypoglycemia Protocol Heparin Sodium (Porcine) (Heparin) 5,000 units SC Q8 [facility] Last Admin: 11/07/18 14:11 Dose: 5,000 units Hydralazine HCl (Apresoline) 25 mg PO QID [facility] Last Admin: 11/07/18 17:17 Dose: 25 mg Ceftriaxone Sodium 1 gm/ (Sodium Chloride) 100 mls @ 100 mls/hr IVPB DAILY [facility]; Protocol Last Admin: 11/07/18 10:51 Dose: 100 mls/hr Dextrose (Dextrose 5% In Water 1000 Ml) 1,000 mls @ 0 mls/hr IV .Q0M PRN; Protocol PRN Reason: Hypoglycemia Protocol Daptomycin 450 mg/ Sodium (Chloride) 100 mls @ 100 mls/hr IV Q48H [facility]; Protocol Last Admin: 11/07/18 17:16 Dose: 100 mls/hr Sodium Bicarbonate (Sodium Bicarbonate Tab) 650 mg PO BID [facility] Last Admin: 11/07/18 17:21 Dose: 650 mg Sodium Polystyrene Sulfonate (Kayexalate) 15 gm PO DAILY [facility] Last Admin: 11/05/18 11:14 Dose: Not Given Vitamin B Complex/Vit C/Folic Acid (Nephro-Daron) 1 tab PO 0800 [facility] Last Admin: 11/07/18 08:43 Dose: 1 tab - Labs Labs: 11/07/18 07:10 11/07/18 07:10 PT 10.8 SECONDS (9.7-12.2) 11/02/18 09:40 INR 1.0 11/02/18 09:40 APTT 28 SECONDS (21-34) 11/02/18 09:40
--- NOTE | 2018-11-07 21:37 | CP.PCM.PN ---
Subjective - Date & Time of Evaluation Date of Evaluation: 11/06/18 Time of Evaluation: 09:15 - Subjective Subjective: Patient seen and evaluated Denies chest pain and dyspnea Review of Systems - Constitutional Constitutional: absent: Chills, Fever, Headache, Increased Appetite, Lethargy, Night Sweats, Weakness - EENT Eyes: absent: Blurred Vision, Change in Vision, Diplopia Ears: absent: Decreased Hearing, Tinnitus, Dizziness Nose/Mouth/Throat: absent: Nasal Congestion, Nasal Discharge - Cardiovascular Cardiovascular: Edema, Leg Edema. absent: Chest Pain, Dyspnea, Palpitations, Syncope - Respiratory Respiratory: absent: Dyspnea, Chest Congestion - Gastrointestinal Gastrointestinal: absent: Abdominal Pain, Constipation, Diarrhea, Nausea, Vomiting - Genitourinary Genitourinary: Dysuria, Urinary Incontinence, Urinary Urgency. absent: Bladder Distension - Musculoskeletal Musculoskeletal: absent: Abnormal Gait, Back Pain, Neck Pain - Integumentary Integumentary: Swelling. absent: Bleeding Lesions, Rash, Unusual Bruising - Neurological Neurological: absent: Numbness, Syncope, Tingling - Psychiatric Psychiatric: absent: Confusion, Hallucinations - Endocrine Endocrine: absent: Fatigue - Hematologic/Lymphatic Hematologic: absent: Easy Bleeding, Easy Bruising Physical Exam - Constitutional Appears: Well, No Acute Distress - Head Exam Head Exam: ATRAUMATIC, NORMOCEPHALIC - Eye Exam Eye Exam: EOMI, PERRL Pupil Exam: NORMAL ACCOMODATION - ENT Exam ENT Exam: Mucous Membranes Moist - Neck Exam Neck exam: Negative for: Lymphadenopathy - Respiratory Exam Respiratory Exam: Clear to Auscultation Bilateral, NORMAL BREATHING PATTERN. absent: Rales, Rhonchi, Wheezes - Cardiovascular Exam Cardiovascular Exam: REGULAR RHYTHM, +S1, +S2. absent: Systolic Murmur - GI/Abdominal Exam GI & Abdominal Exam: Soft. absent: Guarding, Tenderness Additional comments: obese - Exam External exam: NORMAL EXTERNAL EXAM - Extremities Exam Extremities exam: Positive for: normal capillary refill, pedal pulses present - Neurological Exam Neurological exam: Alert, CN II-XII Intact, Oriented x3 Additional comments: brachio reflex 4/4 bilaterally, patellar reflex 2/4 bilaterally - Psychiatric Exam Psychiatric exam: Normal Affect, Normal Mood - Skin Skin Exam: Normal Color, Warm - EKG Data EKG Interpreted by: ER Physician EKG shows normal: Sinus rhythm Rate: Bradycardia Assessment & Plan - Assessment and Plan (Free Text) Assessment: 88yo F with PMHx HTN, DM, urinary incontinence admitted for acidosis and possible acute on chronic kidney disease. She was brought in by EMS for low BG (31 in field) which has since normalized. Plan: Acidosis, possible Acute on Chronic CKD - VBG OA pH 7.22, lactate 0.8 - BUN/Cr OA 54/3.1. unknown baseline - CXR OA: mild to mod venous congestion. patchy increased markings at L lung base - Nephro consulted: Dr. Thomas Richardson - help appreciated - Vasc Surg consulted: Dr. Beck - help appreciated - L UE restriction - tentatively scheduled for AVF placement on 11/04 Diabetes Mellitus - f/u Hgb A1c - Accuchecks ACHS - ISS low - hypoglycemia protocol - restart home Glipizide 10mg po BIDAC - NF home Tradjenta 5mg po daily Hyperkalemia - NF home Veltassa 8.4g powder - Kayexlate once - monitor daily labs UTI - UA OA positive for nitrates, 3+ LE, 225 WBC with clumps, many bacteria - WBC OA 11.7 - f/u Urine Cx (11/02): received - f/f Blood Cx (11/02): received - Ceftriaxone 1gm IVPB daily (started 11/02) Hypertension - home Atenolol 50mg po daily held for bradycardia - Hydralazine 25mg po qid PPx - DVT: Heparin 5000u SC q8, Plavix 75mg daily, SCDs CI - Diet: Renal Diet Objective - Vital Signs/Intake and Output Vital Signs (last 24 hours): Temp Pulse Resp BP Pulse Ox 97.9 F 61 20 132/70 97 11/07/18 15:10 11/07/18 15:10 11/07/18 15:10 11/07/18 17:18 11/07/18 15:10 Intake and Output: 11/07/18 11/08/18 18:59 06:59 Intake Total 580 Balance 580 - Medications Medications: Current Medications Amlodipine Besylate (Norvasc) 10 mg PO DAILY [facility] Last Admin: 11/07/18 10:51 Dose: 10 mg Clopidogrel Bisulfate (Plavix) 75 mg PO DAILY [facility] Last Admin: 11/07/18 10:51 Dose: 75 mg Dextrose (Dextrose 50% Inj) 0 ml IV STAT PRN; Protocol PRN Reason: Hypoglycemia Protocol Dextrose (Glutose 15) 0 gm PO ONCE PRN; Protocol PRN Reason: Hypoglycemia Protocol Epoetin Abraham (Procrit) 4,000 unit SC TTS [facility] Last Admin: 11/07/18 10:50 Dose: 4,000 unit Ferrous Gluconate (Fergon) 324 mg PO TID [facility] Last Admin: 11/07/18 17:21 Dose: 324 mg Furosemide (Lasix) 40 mg PO BID [facility] Last Admin: 11/07/18 17:18 Dose: 40 mg Glucagon (Glucagen Diagnostic Kit) 0 mg IM STAT PRN; Protocol PRN Reason: Hypoglycemia Protocol Heparin Sodium (Porcine) (Heparin) 5,000 units SC Q8 [facility] Last Admin: 11/07/18 14:11 Dose: 5,000 units Hydralazine HCl (Apresoline) 25 mg PO QID [facility] Last Admin: 11/07/18 17:17 Dose: 25 mg Ceftriaxone Sodium 1 gm/ (Sodium Chloride) 100 mls @ 100 mls/hr IVPB DAILY [facility]; Protocol Last Admin: 11/07/18 10:51 Dose: 100 mls/hr Dextrose (Dextrose 5% In Water 1000 Ml) 1,000 mls @ 0 mls/hr IV .Q0M PRN; Protocol PRN Reason: Hypoglycemia Protocol Daptomycin 450 mg/ Sodium (Chloride) 100 mls @ 100 mls/hr IV Q48H [facility]; Protocol Last Admin: 11/07/18 17:16 Dose: 100 mls/hr Sodium Bicarbonate (Sodium Bicarbonate Tab) 650 mg PO BID [facility] Last Admin: 11/07/18 17:21 Dose: 650 mg Sodium Polystyrene Sulfonate (Kayexalate) 15 gm PO DAILY [facility] Last Admin: 11/05/18 11:14 Dose: Not Given Vitamin B Complex/Vit C/Folic Acid (Nephro-Daron) 1 tab PO 0800 [facility] Last Admin: 11/07/18 08:43 Dose: 1 tab - Labs Labs: 11/07/18 07:10 11/07/18 07:10 PT 10.8 SECONDS (9.7-12.2) 11/02/18 09:40 INR 1.0 11/02/18 09:40 APTT 28 SECONDS (21-34) 11/02/18 09:40
--- NOTE | 2018-11-07 21:38 | CP.PCM.PN ---
Subjective - Date & Time of Evaluation Date of Evaluation: 11/07/18 Time of Evaluation: 16:50 - Subjective Subjective: Patient seen and evaluated Denies chest pain and dyspnea No cardiac events noted Review of Systems - Constitutional Constitutional: absent: Chills, Fever, Headache, Increased Appetite, Lethargy, Night Sweats, Weakness - EENT Eyes: absent: Blurred Vision, Change in Vision, Diplopia Ears: absent: Decreased Hearing, Tinnitus, Dizziness Nose/Mouth/Throat: absent: Nasal Congestion, Nasal Discharge - Cardiovascular Cardiovascular: Edema, Leg Edema. absent: Chest Pain, Dyspnea, Palpitations, Syncope - Respiratory Respiratory: absent: Dyspnea, Chest Congestion - Gastrointestinal Gastrointestinal: absent: Abdominal Pain, Constipation, Diarrhea, Nausea, Vomiting - Genitourinary Genitourinary: Dysuria, Urinary Incontinence, Urinary Urgency. absent: Bladder Distension - Musculoskeletal Musculoskeletal: absent: Abnormal Gait, Back Pain, Neck Pain - Integumentary Integumentary: Swelling. absent: Bleeding Lesions, Rash, Unusual Bruising - Neurological Neurological: absent: Numbness, Syncope, Tingling - Psychiatric Psychiatric: absent: Confusion, Hallucinations - Endocrine Endocrine: absent: Fatigue - Hematologic/Lymphatic Hematologic: absent: Easy Bleeding, Easy Bruising Physical Exam - Constitutional Appears: Well, No Acute Distress - Head Exam Head Exam: ATRAUMATIC, NORMOCEPHALIC - Eye Exam Eye Exam: EOMI, PERRL Pupil Exam: NORMAL ACCOMODATION - ENT Exam ENT Exam: Mucous Membranes Moist - Neck Exam Neck exam: Negative for: Lymphadenopathy - Respiratory Exam Respiratory Exam: Clear to Auscultation Bilateral, NORMAL BREATHING PATTERN. absent: Rales, Rhonchi, Wheezes - Cardiovascular Exam Cardiovascular Exam: REGULAR RHYTHM, +S1, +S2. absent: Systolic Murmur - GI/Abdominal Exam GI & Abdominal Exam: Soft. absent: Guarding, Tenderness Additional comments: obese - Exam External exam: NORMAL EXTERNAL EXAM - Extremities Exam Extremities exam: Positive for: normal capillary refill, pedal pulses present - Neurological Exam Neurological exam: Alert, CN II-XII Intact, Oriented x3 Additional comments: brachio reflex 4/4 bilaterally, patellar reflex 2/4 bilaterally - Psychiatric Exam Psychiatric exam: Normal Affect, Normal Mood - Skin Skin Exam: Normal Color, Warm - EKG Data EKG Interpreted by: ER Physician EKG shows normal: Sinus rhythm Rate: Bradycardia Assessment & Plan - Assessment and Plan (Free Text) Assessment: 88yo F with PMHx HTN, DM, urinary incontinence admitted for aci dosis and possible acute on chronic kidney disease. She was brought in by EMS for low BG (31 in field) which has since normalized. Plan: Acidosis, possible Acute on Chronic CKD - VBG OA pH 7.22, lactate 0.8 - BUN/Cr OA 54/3.1. unknown baseline - CXR OA: mild to mod venous congestion. patchy increased markings at L lung base - Nephro consulted: Dr. Thomas Richardson - help appreciated - Vasc Surg consulted: Dr. Beck - help appreciated - L UE restriction - tentatively scheduled for AVF placement on 11/04 Diabetes Mellitus - f/u Hgb A1c - Accuchecks ACHS - ISS low - hypoglycemia protocol - restart home Glipizide 10mg po BIDAC - NF home Tradjenta 5mg po daily Hyperkalemia - NF home Veltassa 8.4g powder - Kayexlate once - monitor daily labs UTI - UA OA positive for nitrates, 3+ LE, 225 WBC with clumps, many bacteria - WBC OA 11.7 - f/u Urine Cx (11/02): received - f/f Blood Cx (11/02): received - Ceftriaxone 1gm IVPB daily (started 11/02) Hypertension - home Atenolol 50mg po daily held for bradycardia - Hydralazine 25mg po qid PPx - DVT: Heparin 5000u SC q8, Plavix 75mg daily, SCDs CI - Diet: Renal Diet Objective - Vital Signs/Intake and Output Vital Signs (last 24 hours): Temp Pulse Resp BP Pulse Ox 97.9 F 61 20 132/70 97 11/07/18 15:10 11/07/18 15:10 11/07/18 15:10 11/07/18 17:18 11/07/18 15:10 Intake and Output: 11/07/18 11/08/18 18:59 06:59 Intake Total 580 Balance 580 - Medications Medications: Current Medications Amlodipine Besylate (Norvasc) 10 mg PO DAILY [facility] Last Admin: 11/07/18 10:51 Dose: 10 mg Clopidogrel Bisulfate (Plavix) 75 mg PO DAILY [facility] Last Admin: 11/07/18 10:51 Dose: 75 mg Dextrose (Dextrose 50% Inj) 0 ml IV STAT PRN; Protocol PRN Reason: Hypoglycemia Protocol Dextrose (Glutose 15) 0 gm PO ONCE PRN; Protocol PRN Reason: Hypoglycemia Protocol Epoetin Abraham (Procrit) 4,000 unit SC TTS [facility] Last Admin: 11/07/18 10:50 Dose: 4,000 unit Ferrous Gluconate (Fergon) 324 mg PO TID [facility] Last Admin: 11/07/18 17:21 Dose: 324 mg Furosemide (Lasix) 40 mg PO BID [facility] Last Admin: 11/07/18 17:18 Dose: 40 mg Glucagon (Glucagen Diagnostic Kit) 0 mg IM STAT PRN; Protocol PRN Reason: Hypoglycemia Protocol Heparin Sodium (Porcine) (Heparin) 5,000 units SC Q8 [facility] Last Admin: 11/07/18 14:11 Dose: 5,000 units Hydralazine HCl (Apresoline) 25 mg PO QID [facility] Last Admin: 11/07/18 17:17 Dose: 25 mg Ceftriaxone Sodium 1 gm/ (Sodium Chloride) 100 mls @ 100 mls/hr IVPB DAILY [facility]; Protocol Last Admin: 11/07/18 10:51 Dose: 100 mls/hr Dextrose (Dextrose 5% In Water 1000 Ml) 1,000 mls @ 0 mls/hr IV .Q0M PRN; Protocol PRN Reason: Hypoglycemia Protocol Daptomycin 450 mg/ Sodium (Chloride) 100 mls @ 100 mls/hr IV Q48H [facility]; Protocol Last Admin: 11/07/18 17:16 Dose: 100 mls/hr Sodium Bicarbonate (Sodium Bicarbonate Tab) 650 mg PO BID [facility] Last Admin: 11/07/18 17:21 Dose: 650 mg Sodium Polystyrene Sulfonate (Kayexalate) 15 gm PO DAILY [facility] Last Admin: 11/05/18 11:14 Dose: Not Given Vitamin B Complex/Vit C/Folic Acid (Nephro-Darno) 1 tab PO 0800 [facility] Last Admin: 11/07/18 08:43 Dose: 1 tab - Labs Labs: 11/07/18 07:10 11/07/18 07:10 PT 10.8 SECONDS (9.7-12.2) 11/02/18 09:40 INR 1.0 11/02/18 09:40 APTT 28 SECONDS (21-34) 11/02/18 09:40
--- NOTE | 2018-11-08 08:43 | CP.PCM.PN ---
<Nancy Vick - Last Filed: 11/08/18 10:43> Subjective - Date & Time of Evaluation Date of Evaluation: 11/08/18 Time of Evaluation: 06:50 - Subjective Subjective: Patient examined at bedside. No acute overnight events. Patient reports she feels well, denies complaints of [place], SOB, abdominal pain, nausea. Objective - Vital Signs/Intake and Output Vital Signs (last 24 hours): Temp Pulse Resp BP Pulse Ox 98.1 F 61 20 139/61 96 11/08/18 00:00 11/08/18 00:00 11/08/18 00:00 11/08/18 00:00 11/08/18 00:00 Intake and Output: 11/08/18 11/08/18 06:59 18:59 Intake Total 300 Balance 300 - Medications Medications: Current Medications Amlodipine Besylate (Norvasc) 10 mg PO DAILY [facility] Last Admin: 11/07/18 10:51 Dose: 10 mg Clopidogrel Bisulfate (Plavix) 75 mg PO DAILY [facility] Last Admin: 11/07/18 10:51 Dose: 75 mg Dextrose (Dextrose 50% Inj) 0 ml IV STAT PRN; Protocol PRN Reason: Hypoglycemia Protocol Dextrose (Glutose 15) 0 gm PO ONCE PRN; Protocol PRN Reason: Hypoglycemia Protocol Epoetin Abraham (Procrit) 4,000 unit SC TTS [facility] Last Admin: 11/07/18 10:50 Dose: 4,000 unit Ferrous Gluconate (Fergon) 324 mg PO TID [facility] Last Admin: 11/07/18 17:21 Dose: 324 mg Furosemide (Lasix) 40 mg PO BID [facility] Last Admin: 11/07/18 17:18 Dose: 40 mg Glucagon (Glucagen Diagnostic Kit) 0 mg IM STAT PRN; Protocol PRN Reason: Hypoglycemia Protocol Heparin Sodium (Porcine) (Heparin) 5,000 units SC Q8 [facility] Last Admin: 11/08/18 05:20 Dose: 5,000 units Hydralazine HCl (Apresoline) 25 mg PO QID [facility] Last Admin: 11/07/18 22:11 Dose: 25 mg Dextrose (Dextrose 5% In Water 1000 Ml) 1,000 mls @ 0 mls/hr IV .Q0M PRN; Protocol PRN Reason: Hypoglycemia Protocol Daptomycin 450 mg/ Sodium (Chloride) 100 mls @ 100 mls/hr IV Q48H [facility]; Protocol Last Admin: 11/07/18 17:16 Dose: 100 mls/hr Sodium Bicarbonate (Sodium Bicarbonate Tab) 650 mg PO BID [facility] Last Admin: 11/07/18 17:21 Dose: 650 mg Sodium Polystyrene Sulfonate (Kayexalate) 15 gm PO DAILY [facility] Last Admin: 11/05/18 11:14 Dose: Not Given Vitamin B Complex/Vit C/Folic Acid (Nephro-Daron) 1 tab PO 0800 [facility] Last Admin: 11/07/18 08:43 Dose: 1 tab - Labs Labs: 11/07/18 07:10 11/07/18 07:10 PT 10.8 SECONDS (9.7-12.2) 11/02/18 09:40 INR 1.0 11/02/18 09:40 APTT 28 SECONDS (21-34) 11/02/18 09:40 - Additional Findings Additional findings: - Constitutional Appears: Non-toxic, No Acute Distress - Head Exam Head Exam: ATRAUMATIC, NORMAL INSPECTION, NORMOCEPHALIC - Eye Exam Eye Exam: EOMI, Normal appearance - ENT Exam ENT Exam: Mucous Membranes Moist, Normal Exam - Neck Exam Neck Exam: Normal Inspection - Respiratory Exam Respiratory Exam: Clear to Ausculation Bilateral, NORMAL BREATHING PATTERN. absent: Respiratory Distress - Cardiovascular Exam Cardiovascular Exam: REGULAR RHYTHM, +S1, +S2. absent: Tachycardia - GI/Abdominal Exam GI & Abdominal Exam: Soft, Normal Bowel Sounds. absent: Distended, Tenderness Additional comments: obese - Extremities Exam Extremities Exam: Pedal Edema (1+ b/l). absent: Calf Tenderness, Normal Inspection (severly dry skin) - Neurological Exam Neurological Exam: Alert, Awake - Psychiatric Exam Psychiatric exam: Normal Affect, Normal Mood - Skin Skin Exam: Dry, Intact, Normal Color, Warm Assessment and Plan - Assessment and Plan (Free Text) Assessment: 88 year old female w/ PMHx of HTN, DM, urinary incontinence admitted for evaluation of AMS 2/2 hypoglycemia, undergoing treatment of UTI and bacteremia Plan: Bactermia Blood cx(11/02): positive for coag negative staph Blood cx(11/04): prelim no growth IV Abx, Dapto 450mg q48h; last ) dose today to complete treatment ID consult, Dr. Motley UTI U cx(11/02): positive for E. Coli IV Abx, rocephin 1g qd CKD, stage 4 Cr 3.0 today lasix 40mg po BID Sodium bicarb 650mg po BID Kayexelate 15g po qd Nephro consult, Dr. Richardson AVF outpatient pending negative cxs Sx consult, Dr. Beck; no plans for AVF currently HTN hydralazine 25mg po QID Norvasc 10mg po qd echo: mod/severe pulm HTN, mild aortic, tricuspid, mitral regurgitation Cardio consult, Dr. Hunter Anemia procrit 4000u TTS ferrous gluconate 324mg po TID DM2, resolved hgb a1c 4.7 accuchecks ACHS ISS-held hypoglycemia protocol Ppx VTE: heparin 5000 q8 GI: not indicated Renal diet PT/OT Blood cx no growth. Pt to plan for AVF after repeat blood cx 11/11 return negative. -Nancy Vick, PGY-1 <Kassi Austin - Last Filed: 11/08/18 18:44> Objective - Vital Signs/Intake and Output Vital Signs (last 24 hours): Temp Pulse Resp BP Pulse Ox 99.7 F H 58 L 20 136/78 97 11/08/18 08:29 11/08/18 08:29 11/08/18 08:29 11/08/18 17:49 11/08/18 08:29 Intake and Output: 11/08/18 11/08/18 06:59 18:59 Intake Total 300 500 Balance 300 500 - Medications Medications: Current Medications Amlodipine Besylate (Norvasc) 10 mg PO DAILY [facility] Last Admin: 11/08/18 09:05 Dose: 10 mg Clopidogrel Bisulfate (Plavix) 75 mg PO DAILY [facility] Last Admin: 11/08/18 09:05 Dose: 75 mg Dextrose (Dextrose 50% Inj) 0 ml IV STAT PRN; Protocol PRN Reason: Hypoglycemia Protocol Dextrose (Glutose 15) 0 gm PO ONCE PRN; Protocol PRN Reason: Hypoglycemia Protocol Epoetin Abraham (Procrit) 4,000 unit SC TTS [facility] Last Admin: 11/07/18 10:50 Dose: 4,000 unit Ferrous Gluconate (Fergon) 324 mg PO TID [facility] Last Admin: 11/08/18 17:48 Dose: 324 mg Furosemide (Lasix) 40 mg PO BID [facility] Last Admin: 11/08/18 17:49 Dose: 40 mg Glucagon (Glucagen Diagnostic Kit) 0 mg IM STAT PRN; Protocol PRN Reason: Hypoglycemia Protocol Heparin Sodium (Porcine) (Heparin) 5,000 units SC Q8 [facility] Last Admin: 11/08/18 13:43 Dose: 5,000 units Hydralazine HCl (Apresoline) 25 mg PO QID [facility] Last Admin: 11/08/18 17:48 Dose: 25 mg Dextrose (Dextrose 5% In Water 1000 Ml) 1,000 mls @ 0 mls/hr IV .Q0M PRN; Protocol PRN Reason: Hypoglycemia Protocol Daptomycin 450 mg/ Sodium (Chloride) 100 mls @ 100 mls/hr IV Q48H [facility]; Protocol Last Admin: 11/07/18 17:16 Dose: 100 mls/hr Sodium Bicarbonate (Sodium Bicarbonate Tab) 650 mg PO BID [facility] Last Admin: 11/08/18 17:48 Dose: 650 mg Sodium Polystyrene Sulfonate (Kayexalate) 15 gm PO DAILY [facility] Last Admin: 11/05/18 11:14 Dose: Not Given Vitamin B Complex/Vit C/Folic Acid (Nephro-Daron) 1 tab PO 0800 [facility] Last Admin: 11/08/18 08:55 Dose: 1 tab - Labs Labs: 11/08/18 08:25 11/08/18 08:25 PT 10.8 SECONDS (9.7-12.2) 11/02/18 09:40 INR 1.0 11/02/18 09:40 APTT 28 SECONDS (21-34) 11/02/18 09:40 Attending/Attestation - Attestation I have personally seen and examined this patient.: Yes I have fully participated in the care of the patient.: Yes I have reviewed all pertinent clinical information, including history, physical exam and plan: Yes Notes (Text): seen and examined.she feels much better bacteremia on daptomycin. third dose tomorrow,follow ID before discharge spoke to Dr nur. She may go home and have A-V graft later
[2018-11-08] MEDS: Multivitamin Vitamin B Complex (Nephro-Vite) Tab PO SCH (08:55)
[2018-11-08 08:56] LABS: BASO # 0.1 K/uL (0.0-0.2); BASO % 0.6 % (0.0-2.0); EOS # 0.2 K/uL (0.0-0.7); EOS % 2.9 % (0.0-4.0); HEMOGLOBIN 9.5 g/dL (11.0-16.0); LYMPH # 2.6 K/uL (1.0-4.3); LYMPH % 33.7 % (20.0-40.0); MEAN CELL VOLUME 88.6 fL (81.0-99.0); MEAN CORPUSCULAR HEMOGLOBIN 29.2 pg (27.0-31.0); MEAN PLATELET VOLUME 9.6 fL (7.2-11.7); MONO # 0.9 K/uL (0.0-0.8); MONO % 12.1 % (0.0-10.0); NEUT % 50.7 % (50.0-75.0); RBC 3.26 Mil/uL (3.80-5.20); RED CELL DISTRIBUTION WIDTH 13.9 % (11.5-14.5); WHITE BLOOD COUNT 7.8 K/uL (4.8-10.8)
[2018-11-08 09:16] LABS: ALB/GLOB RATIO 1.2 (1.0-2.1); ALBUMIN 3.5 g/dL (3.5-5.0); CALCIUM 8.9 mg/dl (8.6-10.4)
[2018-11-08] MEDS: Magnesium Sulfate 1 gm in D5W 1 GM/100 ML BAG IVPB SCH ×2 (10:40→11:08)
--- NOTE | 2018-11-08 13:56 | CP.PCM.PN ---
Subjective - Date & Time of Evaluation Date of Evaluation: 11/08/18 Time of Evaluation: 13:56 - Subjective Subjective: Nephrology Consultation Note: Assessment: Stable AMS with hypoglycemia and UTI, sepsis hyperkalemia, metabolic acidosis Diabetic chronic Kidney Disease (E11.22) Hypertensive Chronic Kidney Disease (I12.9) Chronic Kidney Disease (N18.4) Stage 4 Anemia (D64.9), obesity moderate to severe pulmonary HTN hypomag Plan No acute need for renal replacement therapy at this time. Hypertension control with meds as ordered. Maintain hemodynamics stable. Avoid hypotension. Patient not on ACEI/ARB due to hyperkalemia. started on norvasc and hydralazine today. further uptitration in meds as needed for HTN control Monitor Input/Output, daily weights and renal function with basic metabolic panel sodium bicarb 650 bid, lasix increased to 40 bid on veltassa as outpt started iron MVI and ESAs as epogen. once a month vit D as ordered pt seen by vascular surgery and was planned for AV access but better to defer it to later as outpt since recent blood cx + for [employer] likely contaminant. ID following ordered for IV mag Check urine analysis, spot protein/creatinine, albumin/creatinine ratio Anemia work up with TSAT/Ferritin/Vitamin B12/folate Check for 25-OH vitamin D, iPTH, phosphorus level. Dose meds/antibiotics for reduced GFR. Avoid fleets enema/magnesium based laxatives. Avoid nephrotoxins/NSAIDs/ iodinated contrast (unless needed emergently) Glycemic control. low K diet Further work up/management as per primary team d/c planning for tomorrow after abx. outpt 1 week renal follow up Thanks for allowing me to participate in care of your patient. Will follow patient with you. Please call if any Qs. had d/w team Dr Pk Bonilla Office: [phone] Chief Complaint; low sugar Reason for consult: CKD management HPI: Pt is a 88 F with hx of diabetes Mellitus (20 years), hypertension (years) obesity hyperkalemia anemia presented with complaints of AMS and low sugar Denies OTC/herbal meds or NSAIDs No recent iodinated contrast exposure. No obvious episodes of low BP. pt feels usual health f/up with Dr Richardson in office and pt had accepted HD as future mode of dialysis. was aware about need for AV access soon ROS: Cardiovascular: No chest pain. Pulmonary: No shortness of breath Gastrointestinal: denies abdominal pain No nausea. No vomiting. Genitourinary: No pain while urinating. Denies blood in urine. All other negative except as mentioned in HPI Physical Examination: General Appearance: Comfortable, in no acute respiratory distress, co-operative . Vitals reviewed and noted as below Head; Atraumatic, normocephalic ENT: no ulcers no thrush. Tongue is midline. Oropharynx: no rash or ulcers. EYES: Pupils are equal, round and reactive to light accommodation. Eye muscles and extraocular movement intact. Sclera is anicteric. Neck; supple no lymphadenopathy, no thyromegaly or bruit Lungs: Normal respiratory rate/effort. Breath sounds bilateral equal and clearer Heart: Normal rate. s1s2 normal. No rub or gallop. Extremities: 1+ edema. No varicose veins Neurological: Patient is alert, awake and oriented to person, place and time. No focal deficit. Strength bilateral appropriate and equal Skin: Warm and dry. Normal turgor. No rash. Palpitation: Normal elasticity for age Abdomen: Abdomen is soft. Bowel sounds +. There is no abdominal tenderness, no guarding/rigidity no organomegaly Psych: normal insight and normal affect/mood MSK: no joint tenderness or swelling. Digits and nails normal, no deformity : kidney or bladder not palpable Labs/imaging reviewed. Past medical history, past surgical history, family history, social history, allergy reviewed and noted as below Family hx: no hx of CKD. Rest non-contributory UA suggests UTI Objective - Vital Signs/Intake and Output Vital Signs (last 24 hours): Temp Pulse Resp BP Pulse Ox 99.7 F H 58 L 20 159/64 H 97 11/08/18 08:29 11/08/18 08:29 11/08/18 08:29 11/08/18 09:06 11/08/18 08:29 Intake and Output: 11/08/18 11/08/18 06:59 18:59 Intake Total 300 Balance 300 - Medications Medications: Current Medications Amlodipine Besylate (Norvasc) 10 mg PO DAILY [facility] Last Admin: 11/08/18 09:05 Dose: 10 mg Clopidogrel Bisulfate (Plavix) 75 mg PO DAILY [facility] Last Admin: 11/08/18 09:05 Dose: 75 mg Dextrose (Dextrose 50% Inj) 0 ml IV STAT PRN; Protocol PRN Reason: Hypoglycemia Protocol Dextrose (Glutose 15) 0 gm PO ONCE PRN; Protocol PRN Reason: Hypoglycemia Protocol Epoetin Abraham (Procrit) 4,000 unit SC TTS [facility] Last Admin: 11/07/18 10:50 Dose: 4,000 unit Ferrous Gluconate (Fergon) 324 mg PO TID [facility] Last Admin: 11/08/18 13:43 Dose: 324 mg Furosemide (Lasix) 40 mg PO BID [facility] Last Admin: 11/08/18 09:06 Dose: 40 mg Glucagon (Glucagen Diagnostic Kit) 0 mg IM STAT PRN; Protocol PRN Reason: Hypoglycemia Protocol Heparin Sodium (Porcine) (Heparin) 5,000 units SC Q8 [facility] Last Admin: 11/08/18 13:43 Dose: 5,000 units Hydralazine HCl (Apresoline) 25 mg PO QID [facility] Last Admin: 11/08/18 13:43 Dose: 25 mg Dextrose (Dextrose 5% In Water 1000 Ml) 1,000 mls @ 0 mls/hr IV .Q0M PRN; Protocol PRN Reason: Hypoglycemia Protocol Daptomycin 450 mg/ Sodium (Chloride) 100 mls @ 100 mls/hr IV Q48H [facility]; Protocol Last Admin: 11/07/18 17:16 Dose: 100 mls/hr Sodium Bicarbonate (Sodium Bicarbonate Tab) 650 mg PO BID [facility] Last Admin: 11/08/18 09:06 Dose: 650 mg Sodium Polystyrene Sulfonate (Kayexalate) 15 gm PO DAILY [facility] Last Admin: 11/05/18 11:14 Dose: Not Given Vitamin B Complex/Vit C/Folic Acid (Nephro-Daron) 1 tab PO 0800 [facility] Last Admin: 11/08/18 08:55 Dose: 1 tab - Labs Labs: 11/08/18 08:25 11/08/18 08:25 PT 10.8 SECONDS (9.7-12.2) 11/02/18 09:40 INR 1.0 11/02/18 09:40 APTT 28 SECONDS (21-34) 11/02/18 09:40
--- NOTE | 2018-11-08 23:58 | CP.PCM.PN ---
Subjective - Date & Time of Evaluation Date of Evaluation: 11/08/18 Time of Evaluation: 07:30 - Subjective Subjective: Patient seen and evaluated Denies chest pain and dyspnea Review of Systems - Constitutional Constitutional: absent: Chills, Fever, Headache, Increased Appetite, Lethargy, Night Sweats, Weakness - EENT Eyes: absent: Blurred Vision, Change in Vision, Diplopia Ears: absent: Decreased Hearing, Tinnitus, Dizziness Nose/Mouth/Throat: absent: Nasal Congestion, Nasal Discharge - Cardiovascular Cardiovascular: Edema, Leg Edema. absent: Chest Pain, Dyspnea, Palpitations, Syncope - Respiratory Respiratory: absent: Dyspnea, Chest Congestion - Gastrointestinal Gastrointestinal: absent: Abdominal Pain, Constipation, Diarrhea, Nausea, Vomiting - Genitourinary Genitourinary: Dysuria, Urinary Incontinence, Urinary Urgency. absent: Bladder Distension - Musculoskeletal Musculoskeletal: absent: Abnormal Gait, Back Pain, Neck Pain - Integumentary Integumentary: Swelling. absent: Bleeding Lesions, Rash, Unusual Bruising - Neurological Neurological: absent: Numbness, Syncope, Tingling - Psychiatric Psychiatric: absent: Confusion, Hallucinations - Endocrine Endocrine: absent: Fatigue - Hematologic/Lymphatic Hematologic: absent: Easy Bleeding, Easy Bruising Physical Exam - Constitutional Appears: Well, No Acute Distress - Head Exam Head Exam: ATRAUMATIC, NORMOCEPHALIC - Eye Exam Eye Exam: EOMI, PERRL Pupil Exam: NORMAL ACCOMODATION - ENT Exam ENT Exam: Mucous Membranes Moist - Neck Exam Neck exam: Negative for: Lymphadenopathy - Respiratory Exam Respiratory Exam: Clear to Auscultation Bilateral, NORMAL BREATHING PATTERN. absent: Rales, Rhonchi, Wheezes - Cardiovascular Exam Cardiovascular Exam: REGULAR RHYTHM, +S1, +S2. absent: Systolic Murmur - GI/Abdominal Exam GI & Abdominal Exam: Soft. absent: Guarding, Tenderness Additional comments: obese - Exam External exam: NORMAL EXTERNAL EXAM - Extremities Exam Extremities exam: Positive for: normal capillary refill, pedal pulses present - Neurological Exam Neurological exam: Alert, CN II-XII Intact, Oriented x3 Additional comments: brachio reflex 4/4 bilaterally, patellar reflex 2/4 bilaterally - Psychiatric Exam Psychiatric exam: Normal Affect, Normal Mood - Skin Skin Exam: Normal Color, Warm - EKG Data EKG Interpreted by: ER Physician EKG shows normal: Sinus rhythm Rate: Bradycardia Assessment & Plan - Assessment and Plan (Free Text) Assessment: 88yo F with PMHx HTN, DM, urinary incontinence admitted for acidosis and possible acute on chronic kidney disease. She was brought in by EMS for low BG (31 in field) which has since normalized. Plan: Acidosis, possible Acute on Chronic CKD - VBG OA pH 7.22, lactate 0.8 - BUN/Cr OA 54/3.1. unknown baseline - CXR OA: mild to mod venous congestion. patchy increased markings at L lung base - Nephro consulted: Dr. Thomas Richardson - help appreciated - Vasc Surg consulted: Dr. Beck - help appreciated - L UE restriction - tentatively scheduled for AVF placement on 11/04 Diabetes Mellitus - f/u Hgb A1c - Accuchecks ACHS - ISS low - hypoglycemia protocol - restart home Glipizide 10mg po BIDAC - NF home Tradjenta 5mg po daily Hyperkalemia - NF home Veltassa 8.4g powder - Kayexlate once - monitor daily labs UTI - UA OA positive for nitrates, 3+ LE, 225 WBC with clumps, many bacteria - WBC OA 11.7 - f/u Urine Cx (11/02): received - f/f Blood Cx (11/02): received - Ceftriaxone 1gm IVPB daily (started 11/02) Hypertension - home Atenolol 50mg po daily held for bradycardia - Hydralazine 25mg po qid PPx - DVT: Heparin 5000u SC q8, Plavix 75mg daily, SCDs CI - Diet: Renal Diet Objective - Vital Signs/Intake and Output Vital Signs (last 24 hours): Temp Pulse Resp BP Pulse Ox 98 F 60 20 136/78 96 11/08/18 16:00 11/08/18 16:00 11/08/18 16:00 11/08/18 17:49 11/08/18 16:00 Intake and Output: 11/08/18 11/09/18 18:59 06:59 Intake Total 500 Balance 500 - Medications Medications: Current Medications Amlodipine Besylate (Norvasc) 10 mg PO DAILY [facility] Last Admin: 11/08/18 09:05 Dose: 10 mg Clopidogrel Bisulfate (Plavix) 75 mg PO DAILY [facility] Last Admin: 11/08/18 09:05 Dose: 75 mg Dextrose (Dextrose 50% Inj) 0 ml IV STAT PRN; Protocol PRN Reason: Hypoglycemia Protocol Dextrose (Glutose 15) 0 gm PO ONCE PRN; Protocol PRN Reason: Hypoglycemia Protocol Epoetin Abraham (Procrit) 4,000 unit SC TTS [facility] Last Admin: 11/07/18 10:50 Dose: 4,000 unit Ferrous Gluconate (Fergon) 324 mg PO TID [facility] Last Admin: 11/08/18 17:48 Dose: 324 mg Furosemide (Lasix) 40 mg PO BID [facility] Last Admin: 11/08/18 17:49 Dose: 40 mg Glucagon (Glucagen Diagnostic Kit) 0 mg IM STAT PRN; Protocol PRN Reason: Hypoglycemia Protocol Heparin Sodium (Porcine) (Heparin) 5,000 units SC Q8 [facility] Last Admin: 11/08/18 22:30 Dose: 5,000 units Hydralazine HCl (Apresoline) 25 mg PO QID [facility] Last Admin: 11/08/18 22:30 Dose: 25 mg Dextrose (Dextrose 5% In Water 1000 Ml) 1,000 mls @ 0 mls/hr IV .Q0M PRN; Protocol PRN Reason: Hypoglycemia Protocol Daptomycin 450 mg/ Sodium (Chloride) 100 mls @ 100 mls/hr IV Q48H [facility]; Protocol Last Admin: 11/07/18 17:16 Dose: 100 mls/hr Sodium Bicarbonate (Sodium Bicarbonate Tab) 650 mg PO BID [facility] Last Admin: 11/08/18 17:48 Dose: 650 mg Sodium Polystyrene Sulfonate (Kayexalate) 15 gm PO DAILY [facility] Last Admin: 11/05/18 11:14 Dose: Not Given Vitamin B Complex/Vit C/Folic Acid (Nephro-Daron) 1 tab PO 0800 [facility] Last Admin: 11/08/18 08:55 Dose: 1 tab - Labs Labs: 11/08/18 08:25 11/08/18 08:25 PT 10.8 SECONDS (9.7-12.2) 11/02/18 09:40 INR 1.0 11/02/18 09:40 APTT 28 SECONDS (21-34) 11/02/18 09:40
[2018-11-09 07:01] LABS: BASO # 0.1 K/uL (0.0-0.2); BASO % 0.7 % (0.0-2.0); EOS # 0.2 K/uL (0.0-0.7); EOS % 3.3 % (0.0-4.0); HEMOGLOBIN 9.7 g/dL (11.0-16.0); MEAN CELL VOLUME 88.8 fL (81.0-99.0); MEAN CORPUSCULAR HEMOGLOBIN 29.2 pg (27.0-31.0); MEAN CORPUSCULAR HGB CONC 32.9 g/dL (33.0-37.0); MEAN PLATELET VOLUME 9.7 fL (7.2-11.7); MONO % 12.8 % (0.0-10.0); NEUT # 4.2 K/uL (1.8-7.0); NEUT % 56.2 % (50.0-75.0); NRBC % 0.2 % (0.0-2.0); RBC 3.32 Mil/uL (3.80-5.20); RED CELL DISTRIBUTION WIDTH 13.8 % (11.5-14.5); WHITE BLOOD COUNT 7.6 K/uL (4.8-10.8)
[2018-11-09 08:06] VITALS: PULSE 60; O2SAT 96
[2018-11-09 08:16] LABS: ALB/GLOB RATIO 1.2 (1.0-2.1); ALBUMIN 3.3 g/dL (3.5-5.0)
[2018-11-09] MEDS: Multivitamin Vitamin B Complex (Nephro-Vite) Tab PO SCH (09:10)
--- NOTE | 2018-11-09 10:56 | CP.PCM.PN ---
Subjective - Date & Time of Evaluation Date of Evaluation: 11/09/18 Time of Evaluation: 10:56 - Subjective Subjective: Nephrology Consultation Note: Assessment: Stable AMS with hypoglycemia and UTI, sepsis hyperkalemia, metabolic acidosis Diabetic chronic Kidney Disease (E11.22) Hypertensive Chronic Kidney Disease (I12.9) Chronic Kidney Disease (N18.4) Stage 4 Anemia (D64.9), obesity moderate to severe pulmonary HTN hypomag Plan No acute need for renal replacement therapy at this time. Hypertension control with meds as ordered. Maintain hemodynamics stable. Avoid hypotension. Patient not on ACEI/ARB due to hyperkalemia. started on norvasc and hydralazine today. further uptitration in meds as needed for HTN control Monitor Input/Output, daily weights and renal function with basic metabolic panel sodium bicarb 650 bid, lasix increased to 40 bid on veltassa as outpt started iron MVI and ESAs as epogen. once a month vit D as ordered pt seen by vascular surgery and was planned for AV access but better to defer it to later as outpt since recent blood cx + for [employer] likely contaminant. ID following ordered for IV mag Check urine analysis, spot protein/creatinine, albumin/creatinine ratio Anemia work up with TSAT/Ferritin/Vitamin B12/folate Check for 25-OH vitamin D, iPTH, phosphorus level. Dose meds/antibiotics for reduced GFR. Avoid fleets enema/magnesium based laxatives. Avoid nephrotoxins/NSAIDs/ iodinated contrast (unless needed emergently) Glycemic control. low K diet Further work up/management as per primary team d/c planning for tomorrow after abx. outpt 1 week renal follow up Thanks for allowing me to participate in care of your patient. Will follow patient with you. Please call if any Qs. had d/w team Dr Pk Bonilla Office: [phone] Chief Complaint; low sugar Reason for consult: CKD management HPI: Pt is a 88 F with hx of diabetes Mellitus (20 years), hypertension (years) obesity hyperkalemia anemia presented with complaints of AMS and low sugar Denies OTC/herbal meds or NSAIDs No recent iodinated contrast exposure. No obvious episodes of low BP. pt feels usual health f/up with Dr Richardson in office and pt had accepted HD as future mode of dialysis. was aware about need for AV access soon ROS: Cardiovascular: No chest pain. Pulmonary: No shortness of breath Gastrointestinal: denies abdominal pain No nausea. No vomiting. Genitourinary: No pain while urinating. Denies blood in urine. All other negative except as mentioned in HPI Physical Examination: General Appearance: Comfortable, in no acute respiratory distress, co-operative . Vitals reviewed and noted as below Head; Atraumatic, normocephalic ENT: no ulcers no thrush. Tongue is midline. Oropharynx: no rash or ulcers. EYES: Pupils are equal, round and reactive to light accommodation. Eye muscles and extraocular movement intact. Sclera is anicteric. Neck; supple no lymphadenopathy, no thyromegaly or bruit Lungs: Normal respiratory rate/effort. Breath sounds bilateral equal and clearer Heart: Normal rate. s1s2 normal. No rub or gallop. Extremities: 1+ edema. No varicose veins Neurological: Patient is alert, awake and oriented to person, place and time. No focal deficit. Strength bilateral appropriate and equal Skin: Warm and dry. Normal turgor. No rash. Palpitation: Normal elasticity for age Abdomen: Abdomen is soft. Bowel sounds +. There is no abdominal tenderness, no guarding/rigidity no organomegaly Psych: normal insight and normal affect/mood MSK: no joint tenderness or swelling. Digits and nails normal, no deformity : kidney or bladder not palpable Labs/imaging reviewed. Past medical history, past surgical history, family history, social history, allergy reviewed and noted as below Family hx: no hx of CKD. Rest non-contributory UA suggests UTI Objective - Vital Signs/Intake and Output Vital Signs (last 24 hours): Temp Pulse Resp BP Pulse Ox 97.9 F 60 20 161/60 H 96 11/09/18 08:04 11/09/18 08:04 11/09/18 08:04 11/09/18 09:10 11/09/18 08:04 Intake and Output: 11/09/18 11/09/18 06:59 18:59 Intake Total 300 Balance 300 - Medications Medications: Current Medications Amlodipine Besylate (Norvasc) 10 mg PO DAILY [facility] Last Admin: 11/09/18 09:10 Dose: 10 mg Clopidogrel Bisulfate (Plavix) 75 mg PO DAILY [facility] Last Admin: 11/09/18 09:09 Dose: 75 mg Dextrose (Dextrose 50% Inj) 0 ml IV STAT PRN; Protocol PRN Reason: Hypoglycemia Protocol Dextrose (Glutose 15) 0 gm PO ONCE PRN; Protocol PRN Reason: Hypoglycemia Protocol Epoetin Abraham (Procrit) 4,000 unit SC TTS [facility] Last Admin: 11/07/18 10:50 Dose: 4,000 unit Ferrous Gluconate (Fergon) 324 mg PO TID [facility] Last Admin: 11/09/18 09:10 Dose: 324 mg Furosemide (Lasix) 40 mg PO BID [facility] Last Admin: 11/09/18 09:10 Dose: 40 mg Glucagon (Glucagen Diagnostic Kit) 0 mg IM STAT PRN; Protocol PRN Reason: Hypoglycemia Protocol Heparin Sodium (Porcine) (Heparin) 5,000 units SC Q8 [facility] Last Admin: 11/09/18 05:40 Dose: 5,000 units Hydralazine HCl (Apresoline) 25 mg PO QID [facility] Last Admin: 11/09/18 09:10 Dose: 25 mg Dextrose (Dextrose 5% In Water 1000 Ml) 1,000 mls @ 0 mls/hr IV .Q0M PRN; Protocol PRN Reason: Hypoglycemia Protocol Daptomycin 450 mg/ Sodium (Chloride) 100 mls @ 100 mls/hr IV Q48H [facility]; Protocol Last Admin: 11/07/18 17:16 Dose: 100 mls/hr Sodium Bicarbonate (Sodium Bicarbonate Tab) 650 mg PO BID [facility] Last Admin: 11/09/18 09:09 Dose: 650 mg Sodium Polystyrene Sulfonate (Kayexalate) 15 gm PO DAILY [facility] Last Admin: 11/05/18 11:14 Dose: Not Given Vitamin B Complex/Vit C/Folic Acid (Nephro-Daron) 1 tab PO 0800 [facility] Last Admin: 11/09/18 09:10 Dose: 1 tab - Labs Labs: 11/09/18 06:51 11/09/18 06:51 PT 10.8 SECONDS (9.7-12.2) 11/02/18 09:40 INR 1.0 11/02/18 09:40 APTT 28 SECONDS (21-34) 11/02/18 09:40
--- NOTE | 2018-11-09 13:50 | CP.PCM.DIS ---
<Livier Choudhury - Last Filed: 11/09/18 13:47> Provider - Provider Date of Admission: 11/02/18 13:30 Attending physician: Christiano Reed DO Consults: 11/02/18 15:29 Vascular Surgery Routine Comment: Consulting Provider: Hector Beck Jr. Physician Instructions: Reason For Exam: AVF placement 11/02/18 15:30 Nephrology Consult Routine Comment: Consulting Provider: Gabriel Richardson Consulting Physician: Gabriel Richardson Reason for Consult: CKD, consider for HD 11/03/18 13:06 Cardiology Consult Routine Comment: Consulting Provider: Jeremiah Hunter Consulting Physician: Jeremiah Hunter Reason for Consult: cardiac optimization, HTN 11/04/18 14:36 Infectious Disease Consult Routine Comment: Consulting Provider: Hermila Motley Consulting Physician: Hermila Motley Reason for Consult: bacteremia pre-op Time Spent in preparation of Discharge (in minutes): 45 Diagnosis - Discharge Diagnosis (1) Urinary tract infection, E. coli Status: Acute (2) Bacteremia due to coagulase-negative Staphylococcus Status: Acute (3) Drug-induced hypoglycemia Status: Acute Hospital Course - Lab Results Lab Results: Micro Results 11/04/18 17:51 Blood Blood Culture - Preliminary NO GROWTH AFTER 4 DAYS 11/04/18 13:30 Blood Blood Culture - Preliminary NO GROWTH AFTER 4 DAYS 11/05/18 22:43 Urine Random Urine Culture - Final No Growth (<1,000 CFU/ML) 11/02/18 12:30 Blood Blood Culture - Final Coagulase Neg Staphylococcus 11/02/18 12:30 Blood Gram Stain - Final 11/02/18 13:00 Blood S.aureus & Coag-Neg Staph PNA FISH - Final 11/02/18 13:00 Blood Blood Culture - Final Coagulase Neg Staphylococcus 11/02/18 13:00 Blood Gram Stain - Final 11/02/18 14:04 Urine Random Urine Culture - Final Escherichia Coli Most Recent Lab Values WBC 7.6 K/uL (4.8-10.8) 11/09/18 06:51 RBC 3.32 Mil/uL (3.80-5.20) L 11/09/18 06:51 Hgb 9.7 g/dL (11.0-16.0) L 11/09/18 06:51 Hct 29.5 % (34.0-47.0) L 11/09/18 06:51 MCV 88.8 fL (81.0-99.0) 11/09/18 06:51 MCH 29.2 pg (27.0-31.0) 11/09/18 06:51 MCHC 32.9 g/dL (33.0-37.0) L 11/09/18 06:51 RDW 13.8 % (11.5-14.5) 11/09/18 06:51 Plt Count 168 K/uL (130-400) 11/09/18 06:51 MPV 9.7 fL (7.2-11.7) 11/09/18 06:51 Neut % (Auto) 56.2 % (50.0-75.0) 11/09/18 06:51 Lymph % (Auto) 27.0 % (20.0-40.0) 11/09/18 06:51 [place] % (Auto) 12.8 % (0.0-10.0) H 11/09/18 06:51 Eos % (Auto) 3.3 % (0.0-4.0) 11/09/18 06:51 Baso % (Auto) 0.7 % (0.0-2.0) 11/09/18 06:51 Neut # (Auto) 4.2 K/uL (1.8-7.0) 11/09/18 06:51 Lymph # (Auto) 2.0 K/uL (1.0-4.3) 11/09/18 06:51 [place] # (Auto) 1.0 K/uL (0.0-0.8) H 11/09/18 06:51 Eos # (Auto) 0.2 K/uL (0.0-0.7) 11/09/18 06:51 Baso # (Auto) 0.1 K/uL (0.0-0.2) 11/09/18 06:51 Neutrophils % (Manual) 80 % (50-75) H 11/02/18 09:40 Lymphocytes % (Manual) 10 % (20-40) L 11/02/18 09:40 Monocytes % (Manual) 9 % (0-10) 11/02/18 09:40 Basophils % (Manual) 1 % (0-2) 11/02/18 09:40 Platelet Estimate Normal (NORMAL) 11/02/18 09:40 Hypochromasia (manual) Slight 11/02/18 09:40 Poikilocytosis (manual Slight 11/02/18 09:40 Anisocytosis (manual) Slight 11/02/18 09:40 [place] Cells Slight 11/02/18 09:40 PT 10.8 SECONDS (9.7-12.2) 11/02/18 09:40 INR 1.0 11/02/18 09:40 APTT 28 SECONDS (21-34) 11/02/18 09:40 pO2 38 mm/Hg (30-55) 11/02/18 09:41 VBG pH 7.22 (7.32-7.43) L 11/02/18 09:41 VBG pCO2 45 mmHg (40-60) 11/02/18 09:41 VBG HCO3 16.8 mmol/L 11/02/18 09:41 VBG Total CO2 19.8 mmol/L (22-28) L 11/02/18 09:41 VBG O2 Sat (Calc) 69.7 % (40-65) H 11/02/18 09:41 VBG Base Excess -9.1 mmol/L (0.0-2.0) L 11/02/18 09:41 VBG Potassium 5.0 mmol/L (3.6-5.2) 11/02/18 09:41 Sodium 143.0 mmol/l (132-148) 11/02/18 09:41 Chloride 116.0 mmol/L (98-107) H 11/02/18 09:41 Glucose 131 mg/dl (65-105) H 11/02/18 09:41 Lactate 0.8 mmol/L (0.7-2.1) 11/02/18 09:41 Sodium 138 mmol/L (132-148) 11/09/18 06:51 Potassium 4.4 mmol/L (3.6-5.2) 11/09/18 06:51 Chloride 105 mmol/L (98-107) 11/09/18 06:51 Carbon Dioxide 24 mmol/L (22-30) 11/09/18 06:51 Anion Gap 13 (10-20) 11/09/18 06:51 BUN 43 mg/dL (7-17) H 11/09/18 06:51 Creatinine 2.8 mg/dL (0.7-1.2) H 11/09/18 06:51 Est GFR ( Amer) 19 11/09/18 06:51 Est GFR (Non-Af Amer) 16 11/09/18 06:51 POC Glucose (mg/dL) 171 mg/dL (65-110) H 11/09/18 11:53 Random Glucose 105 mg/dL (65-105) 11/09/18 06:51 Hemoglobin A1c 4.7 % (4.2-6.5) 11/03/18 07:27 Calcium 9.0 mg/dl (8.6-10.4) 11/09/18 06:51 Phosphorus 3.9 mg/dL (2.5-4.5) 11/09/18 06:51 Magnesium 2.0 mg/dL (1.6-2.3) 11/09/18 06:51 Iron 41 ug/dL (37-170) 11/03/18 14:20 TIBC 235 ug/dL (250-450) L 11/03/18 14:20 % Saturation 18 (20-55) L 11/03/18 14:20 Ferritin 83.9 ng/mL 11/03/18 14:20 Total Bilirubin 0.3 mg/dL (0.2-1.3) 11/09/18 06:51 AST 19 U/L (14-36) 11/09/18 06:51 ALT 14 U/L (9-52) 11/09/18 06:51 Alkaline Phosphatase 52 U/L (38-126) 11/09/18 06:51 Total Creatine Kinase 39 U/L (30-135) 11/02/18 09:40 CK-MB (Mass) 0.24 ng/mL (0.0-3.38) 11/02/18 09:40 Troponin I < 0.0120 ng/mL (0.00-0.120) 11/02/18 09:40 Total Protein 6.0 g/dL (6.3-8.3) L 11/09/18 06:51 Albumin 3.3 g/dL (3.5-5.0) L 11/09/18 06:51 Globulin 2.8 gm/dL (2.2-3.9) 11/09/18 06:51 Albumin/Globulin Ratio 1.2 (1.0-2.1) 11/09/18 06:51 Vitamin B12 463 pg/mL (239-931) 11/03/18 14:20 25-OH Vitamin D Total 28.6 NG/ML (30.0-100.0) L 11/04/18 17:51 TSH 3rd Generation 0.94 mIU/L (0.46-4.68) 11/02/18 09:40 PTH Intact Whole Molec 169 pg/mL (14-64) H 11/03/18 14:20 Venous Blood Potassium 5.0 mmol/L (3.6-5.2) 11/02/18 09:41 Urine Color Straw (YELLOW) 11/05/18 22:43 Urine Clarity Clear (Clear) 11/05/18 22:43 Urine pH 7.0 (5.0-8.0) 11/05/18 22:43 Ur Specific [place] 1.006 (1.003-1.030) 11/05/18 22:43 Urine Protein Negative mg/dL (NEGATIVE) 11/05/18 22:43 Urine Glucose (UA) Normal mg/dL (Normal) 11/05/18 22:43 Urine Ketones Negative mg/dL (NEGATIVE) 11/05/18 22:43 Urine Blood Negative (NEGATIVE) 11/05/18 22:43 Urine Nitrate Negative (NEGATIVE) 11/05/18 22:43 Urine Bilirubin Negative (NEGATIVE) 11/05/18 22:43 Urine Urobilinogen Normal mg/dL (0.2-1.0) 11/05/18 22:43 Ur Leukocyte Esterase 1+ Berta/uL (Negative) H 11/05/18 22:43 Urine WBC (Auto) 8 /hpf (0-5) H 11/05/18 22:43 Urine RBC (Auto) < 1 /hpf (0-3) 11/05/18 22:43 Urine WBC Clumps (Auto) Few /hpf (NONE) H 11/02/18 11:30 Ur Squamous Epith Cells 3 /hpf (0-5) 11/05/18 22:43 Urine Bacteria Many (<OCC) H 11/02/18 11:30 Ur Random Creatinine 45 mg/dL (20-275) 11/05/18 12:02 U Random Total Protein 578 mg/g creat (21-161) H 11/05/18 12:02 Urine Total Volume 4.5 mg/dL 11/05/18 12:02 Microalb/Creat Ratio 101 (<30) H 11/05/18 12:02 Random Vancomycin 8.3 ug/mL 11/05/18 07:34 - Hospital Course Hospital Course: Ms. Santos is a 88yo F with a past medical history of hypertension, diabetes, and urinary incontinence who was BIBA for AMS. She was found to have a BG of 31 in the field per EMS; was given glucose through IO access. She became more alert through hospital stay, however was found to be acidotic. She also complains of burning on urination. Denies change in medication, change in appetite, headache, dizziness, chest pain, shortness of breath, abdominal pain, lightheadedness, fainting, change in appetite, noncompliance. With a Hgb A1c of 4.7, patient was hypoglycemic due to continuance of her diabetic medications. Those medications were stopped on admission. CXR done in the ED showed mild to mod venous congestion with patchy increased markings at the L lung base. Nephro was consulted for PAMELA and hypertension, and the patient was started on Iron MVI, and Bicarb with EPO injections MWF and adjustment of her anti-hypertensives. Vascular Surgery was consulted for AVF fistula placement. Cardio consulted for cardiac evaluation for surgery. ECHO showed normal LVEF with mod to severe pulmonary hypertension. Lexiscan stress test showed no stress induced ischemia and LVEF>70%. However, due to positive urine and blood cultures, the surgery was postponed for outpatient. ID was consulted, and the patient was started on Ceftriaxone and Daptomycin, with one time Vanco. Repeat urine and blood cultures were negative. Primary Diagnosis: UTI, bacteremia Patient is clear for discharge per Irene Jorge, Ebony, and Tiesha. She has finished her antibiotic course and will not need anymore after discharge. She should be taking the following medications as prescribed: Amlodipine 10mg po daily. Take 1 tab by mouth once a day Clopidigrel 75mg po daily. Take 1 tab by mouth once a day Ferrous Gluconate 324mg po TID. Take 1 tab by mouth three times a day Furosemide 40mg po BID. Take 1 tab by mouth twice a day Hydralazine 50mg po BID. Take 1 tab by mouth twice a day Sodium Bicarbonate 650mg po BID. Take 1 tab by mouth twice a day Nephro-Daron PO 0800. Take 1 tab by mouth at 8 in the morning Her Hgb A1c this visit was 4.7. SHE IS NOT DIABETIC. Please discontinue all her diabetic medications or she will be at risk for another hypoglycemic episode. Again, stop taking the Glipizide and Tradjenta that you have at home. Please follow up with Vascular Surgery, Dr. Beck, in one week to schedule your elective AVF placement. Please follow up with Nephrology, Dr. Richardson, in one week to monitor your kidney function. Please follow up with your PMD, Dr. Jacobo, in one week for coordination of care. If symptoms return or worsen (headache, fever, chills, chest pain, abdominal pain, burning on urination, nausea, vomiting, numbness/tingling, etc) please do not hesitate to come back to the ED. The plan was discussed with the patient who understood and agreed. This is a summary of the hospital course. Please refer to the EMR for more detail. - Date & Time of H&P Date of H&P: 11/09/18 Time of H&P: 11:00 Discharge Exam - Head Exam Head Exam: ATRAUMATIC, NORMAL INSPECTION, NORMOCEPHALIC - Eye Exam Eye Exam: EOMI, PERRL - ENT Exam ENT Exam: Mucous Membranes Moist - Respiratory Exam Respiratory Exam: Clear to PA & Lateral, NORMAL BREATHING PATTERN, UNREMARKABLE. absent: Rhonchi, Wheezes, Respiratory Distress - Cardiovascular Exam Cardiovascular Exam: REGULAR RHYTHM, +S1, +S2. absent: Systolic Murmur - GI/Abdominal Exam GI & Abdominal Exam: Normal Bowel Sounds, Soft. absent: Firm, Guarding, Tenderness Additional comments: obese - Extremities Exam Extremities exam: normal capillary refill, pedal pulses present Additional comments: non-pitting edema bilaterally distal to knees - Neurological Exam Neurological exam: Alert, CN II-XII Intact, Oriented x3, Reflexes Normal - Psychiatric Exam Psychiatric exam: Normal Affect, Normal Mood - Skin Skin Exam: Dry, Intact, Normal Color, Warm Discharge Plan - Discharge Medications Prescriptions: amLODIPine [Norvasc] 10 mg PO DAILY #14 tab Clopidogrel [Plavix] 75 mg PO DAILY #14 tab Ferrous Gluconate [Fergon] 324 mg PO TID #42 tab Furosemide [Lasix] 40 mg PO BID #28 tab hydrALAZINE [Apresoline] 50 mg PO BID #28 tab Sodium Bicarbonate Tab 650 mg PO BID #28 tab Vitamin B Complex/Vit C/Folic [Nephro-Daron] 1 tab PO 0800 #14 tab - Follow Up Plan Condition: GOOD Disposition: HOME/ ROUTINE Instructions: Low Blood Sugar, Adult (DC), E. coli Infection (DC), Amlodipine, Furosemide, Hydralazine, Urinary Tract Infection in Women (DC) Additional Instructions: Patient is clear for discharge per Drs. Reed, Irene, Ebony, and Tiesha. She has finished her antibiotic course and will not need anymore after discharge. She should be taking the following medications as prescribed: Amlodipine 10mg po daily. Take 1 tab by mouth once a day Clopidigrel 75mg po daily. Take 1 tab by mouth once a day Ferrous Gluconate 324mg po TID. Take 1 tab by mouth three times a day Furosemide 40mg po BID. Take 1 tab by mouth twice a day Hydralazine 50mg po BID. Take 1 tab by mouth twice a day Sodium Bicarbonate 650mg po BID. Take 1 tab by mouth twice a day Nephro-Daron PO 0800. Take 1 tab by mouth at 8 in the morning Her Hgb A1c this visit was 4.7. SHE IS NOT DIABETIC. Please discontinue all her diabetic medications or she will be at risk for another hypoglycemic episode. Again, stop taking the Glipizide and Tradjenta that you have at home. Please follow up with Vascular Surgery, Dr. Beck, in one week to schedule your elective AVF placement. Please follow up with Nephrology, Dr. Richardson, in one week to monitor your kidney function. Please follow up with your PMD, Dr. Jacobo, in one week for coordination of care. If symptoms return or worsen (headache, fever, chills, chest pain, abdominal pain, burning on urination, nausea, vomiting, numbness/tingling, etc) please do not hesitate to come back to the ED. The plan was discussed with the patient who understood and agreed. Referrals: Ramses Jacobo MD [Medical Doctor] - Gabriel Richardson MD [Staff Provider] - Hector Beck Jr., MD [Staff Provider] - <Christiano Reed Alessandro - Last Filed: 11/09/18 19:25> Provider - Provider Date of Admission: 11/02/18 13:30 Attending physician: Christiano Reed DO Consults: 11/02/18 15:29 Vascular Surgery Routine Comment: Consulting Provider: Hector Beck Jr. Physician Instructions: Reason For Exam: AVF placement 11/02/18 15:30 Nephrology Consult Routine Comment: Consulting Provider: Gabriel Richardson Consulting Physician: Gabriel Richardson Reason for Consult: CKD, consider for HD 11/03/18 13:06 Cardiology Consult Routine Comment: Consulting Provider: Jeremiah Hunter Consulting Physician: Jeremiah Hunter Reason for Consult: cardiac optimization, HTN 11/04/18 14:36 Infectious Disease Consult Routine Comment: Consulting Provider: Hermila Motley Consulting Physician: Hermila Motley Reason for Consult: bacteremia pre-op Hospital Course - Lab Results Lab Results: Micro Results 11/04/18 17:51 Blood Blood Culture - Final NO GROWTH AFTER 5 DAYS 11/04/18 17:51 Blood Gram Stain - Final TEST NOT PERFORMED 11/04/18 13:30 Blood Blood Culture - Final NO GROWTH AFTER 5 DAYS 11/04/18 13:30 Blood Gram Stain - Final TEST NOT PERFORMED 11/05/18 22:43 Urine Random Urine Culture - Final No Growth (<1,000 CFU/ML) 11/02/18 12:30 Blood Blood Culture - Final Coagulase Neg Staphylococcus 11/02/18 12:30 Blood Gram Stain - Final 11/02/18 13:00 Blood S.aureus & Coag-Neg Staph PNA FISH - Final 11/02/18 13:00 Blood Blood Culture - Final Coagulase Neg Staphylococcus 11/02/18 13:00 Blood Gram Stain - Final 11/02/18 14:04 Urine Random Urine Culture - Final Escherichia Coli Most Recent Lab Values WBC 7.6 K/uL (4.8-10.8) 11/09/18 06:51 RBC 3.32 Mil/uL (3.80-5.20) L 11/09/18 06:51 Hgb 9.7 g/dL (11.0-16.0) L 11/09/18 06:51 Hct 29.5 % (34.0-47.0) L 11/09/18 06:51 MCV 88.8 fL (81.0-99.0) 11/09/18 06:51 MCH 29.2 pg (27.0-31.0) 11/09/18 06:51 MCHC 32.9 g/dL (33.0-37.0) L 11/09/18 06:51 RDW 13.8 % (11.5-14.5) 11/09/18 06:51 Plt Count 168 K/uL (130-400) 11/09/18 06:51 MPV 9.7 fL (7.2-11.7) 11/09/18 06:51 Neut % (Auto) 56.2 % (50.0-75.0) 11/09/18 06:51 Lymph % (Auto) 27.0 % (20.0-40.0) 11/09/18 06:51 [place] % (Auto) 12.8 % (0.0-10.0) H 11/09/18 06:51 Eos % (Auto) 3.3 % (0.0-4.0) 11/09/18 06:51 Baso % (Auto) 0.7 % (0.0-2.0) 11/09/18 06:51 Neut # (Auto) 4.2 K/uL (1.8-7.0) 11/09/18 06:51 Lymph # (Auto) 2.0 K/uL (1.0-4.3) 11/09/18 06:51 [place] # (Auto) 1.0 K/uL (0.0-0.8) H 11/09/18 06:51 Eos # (Auto) 0.2 K/uL (0.0-0.7) 11/09/18 06:51 Baso # (Auto) 0.1 K/uL (0.0-0.2) 11/09/18 06:51 Neutrophils % (Manual) 80 % (50-75) H 11/02/18 09:40 Lymphocytes % (Manual) 10 % (20-40) L 11/02/18 09:40 Monocytes % (Manual) 9 % (0-10) 11/02/18 09:40 Basophils % (Manual) 1 % (0-2) 11/02/18 09:40 Platelet Estimate Normal (NORMAL) 11/02/18 09:40 Hypochromasia (manual) Slight 11/02/18 09:40 Poikilocytosis (manual Slight 11/02/18 09:40 Anisocytosis (manual) Slight 11/02/18 09:40 [place] Cells Slight 11/02/18 09:40 PT 10.8 SECONDS (9.7-12.2) 11/02/18 09:40 INR 1.0 11/02/18 09:40 APTT 28 SECONDS (21-34) 11/02/18 09:40 pO2 38 mm/Hg (30-55) 11/02/18 09:41 VBG pH 7.22 (7.32-7.43) L 11/02/18 09:41 VBG pCO2 45 mmHg (40-60) 11/02/18 09:41 VBG HCO3 16.8 mmol/L 11/02/18 09:41 VBG Total CO2 19.8 mmol/L (22-28) L 11/02/18 09:41 VBG O2 Sat (Calc) 69.7 % (40-65) H 11/02/18 09:41 VBG Base Excess -9.1 mmol/L (0.0-2.0) L 11/02/18 09:41 VBG Potassium 5.0 mmol/L (3.6-5.2) 11/02/18 09:41 Sodium 143.0 mmol/l (132-148) 11/02/18 09:41 Chloride 116.0 mmol/L (98-107) H 11/02/18 09:41 Glucose 131 mg/dl (65-105) H 11/02/18 09:41 Lactate 0.8 mmol/L (0.7-2.1) 11/02/18 09:41 Sodium 138 mmol/L (132-148) 11/09/18 06:51 Potassium 4.4 mmol/L (3.6-5.2) 11/09/18 06:51 Chloride 105 mmol/L (98-107) 11/09/18 06:51 Carbon Dioxide 24 mmol/L (22-30) 11/09/18 06:51 Anion Gap 13 (10-20) 11/09/18 06:51 BUN 43 mg/dL (7-17) H 11/09/18 06:51 Creatinine 2.8 mg/dL (0.7-1.2) H 11/09/18 06:51 Est GFR ( Amer) 19 11/09/18 06:51 Est GFR (Non-Af Amer) 16 11/09/18 06:51 POC Glucose (mg/dL) 202 mg/dL (65-110) H 11/09/18 16:08 Random Glucose 105 mg/dL (65-105) 11/09/18 06:51 Hemoglobin A1c 4.7 % (4.2-6.5) 11/03/18 07:27 Calcium 9.0 mg/dl (8.6-10.4) 11/09/18 06:51 Phosphorus 3.9 mg/dL (2.5-4.5) 11/09/18 06:51 Magnesium 2.0 mg/dL (1.6-2.3) 11/09/18 06:51 Iron 41 ug/dL (37-170) 11/03/18 14:20 TIBC 235 ug/dL (250-450) L 11/03/18 14:20 % Saturation 18 (20-55) L 11/03/18 14:20 Ferritin 83.9 ng/mL 11/03/18 14:20 Total Bilirubin 0.3 mg/dL (0.2-1.3) 11/09/18 06:51 AST 19 U/L (14-36) 11/09/18 06:51 ALT 14 U/L (9-52) 11/09/18 06:51 Alkaline Phosphatase 52 U/L (38-126) 11/09/18 06:51 Total Creatine Kinase 39 U/L (30-135) 11/02/18 09:40 CK-MB (Mass) 0.24 ng/mL (0.0-3.38) 11/02/18 09:40 Troponin I < 0.0120 ng/mL (0.00-0.120) 11/02/18 09:40 Total Protein 6.0 g/dL (6.3-8.3) L 11/09/18 06:51 Albumin 3.3 g/dL (3.5-5.0) L 11/09/18 06:51 Globulin 2.8 gm/dL (2.2-3.9) 11/09/18 06:51 Albumin/Globulin Ratio 1.2 (1.0-2.1) 11/09/18 06:51 Vitamin B12 463 pg/mL (239-931) 11/03/18 14:20 25-OH Vitamin D Total 28.6 NG/ML (30.0-100.0) L 11/04/18 17:51 TSH 3rd Generation 0.94 mIU/L (0.46-4.68) 11/02/18 09:40 PTH Intact Whole Molec 169 pg/mL (14-64) H 11/03/18 14:20 Venous Blood Potassium 5.0 mmol/L (3.6-5.2) 11/02/18 09:41 Urine Color Straw (YELLOW) 11/05/18 22:43 Urine Clarity Clear (Clear) 11/05/18 22:43 Urine pH 7.0 (5.0-8.0) 11/05/18 22:43 Ur Specific [place] 1.006 (1.003-1.030) 11/05/18 22:43 Urine Protein Negative mg/dL (NEGATIVE) 11/05/18 22:43 Urine Glucose (UA) Normal mg/dL (Normal) 11/05/18 22:43 Urine Ketones Negative mg/dL (NEGATIVE) 11/05/18 22:43 Urine Blood Negative (NEGATIVE) 11/05/18 22:43 Urine Nitrate Negative (NEGATIVE) 11/05/18 22:43 Urine Bilirubin Negative (NEGATIVE) 11/05/18 22:43 Urine Urobilinogen Normal mg/dL (0.2-1.0) 11/05/18 22:43 Ur Leukocyte Esterase 1+ Berta/uL (Negative) H 11/05/18 22:43 Urine WBC (Auto) 8 /hpf (0-5) H 11/05/18 22:43 Urine RBC (Auto) < 1 /hpf (0-3) 11/05/18 22:43 Urine WBC Clumps (Auto) Few /hpf (NONE) H 11/02/18 11:30 Ur Squamous Epith Cells 3 /hpf (0-5) 11/05/18 22:43 Urine Bacteria Many (<OCC) H 11/02/18 11:30 Ur Random Creatinine 45 mg/dL (20-275) 11/05/18 12:02 U Random Total Protein 578 mg/g creat (21-161) H 11/05/18 12:02 Urine Total Volume 4.5 mg/dL 11/05/18 12:02 Microalb/Creat Ratio 101 (<30) H 11/05/18 12:02 Random Vancomycin 8.3 ug/mL 11/05/18 07:34 Attending/Attestation - Attestation I have personally seen and examined this patient.: Yes I have fully participated in the care of the patient.: Yes I have reviewed all pertinent clinical information, including history, physical exam and plan: Yes Notes (Text): 11/09/18 19:21 Medical attending: Patient was seen and examined by me. Agree with the above note by the resident The patient was not in any acute distress at this time. She was expecting to go home and had already been fully dressed when I came with the residents to round with her Reviewed the history with the patient and the medical team, she has had IV abx and WBC stable, no fevers, cultures are now stable. She reports no problems with urinary sypmtoms at this time. Patient will be discharged today - the patient understands she will need to return to see surgery and nephrology in the future for potential creation of AVF as she has a history of CKD. thank you Christiano Reed
[2018-11-09 15:46] VITALS: BP 139/69; TEMP 97.8
== END 2018-11-09 17:13 | disposition home health service (06) | DRG 637 ==
LOC: C.ER 08:56 → C.9E 13:30 → C.3T 14:50
PROVIDERS: ADMIT Hospitalist; ATTEND Hospitalist
DX: E11.649 Type 2 diabetes mellitus with hypoglycemia without coma (principal); G93.41 Metabolic encephalopathy; N39.0 Urinary tract infection, site not specified; R78.81 Bacteremia; E87.2 Acidosis; N17.9 Acute kidney failure, unspecified; E11.22 Type 2 diabetes mellitus with diabetic chronic kidney disease; I12.9 Hypertensive chronic kidney disease with stage 1 through stage 4 chronic kidney disease, or unspecified chronic kidney disease; E87.5 Hyperkalemia; N18.4 Chronic kidney disease, stage 4 (severe); D63.1 Anemia in chronic kidney disease; I27.20 Pulmonary hypertension, unspecified; I07.1 Rheumatic tricuspid insufficiency; E83.42 Hypomagnesemia; E78.5 Hyperlipidemia, unspecified; B96.20 Unspecified Escherichia coli [E. coli] as the cause of diseases classified elsewhere; B95.7 Other staphylococcus as the cause of diseases classified elsewhere; E16.0 Drug-induced hypoglycemia without coma; E66.9 Obesity, unspecified; Z96.653 Presence of artificial knee joint, bilateral; Z79.02 Long term (current) use of antithrombotics/antiplatelets; Z79.84 Long term (current) use of oral hypoglycemic drugs; Z83.3 Family history of diabetes mellitus; Z82.49 Family history of ischemic heart disease and other diseases of the circulatory system

== ENCOUNTER 2018-11-30 10:30 | Day surgery (SDC) | payer MEDICARE, BC ==
[2018-11-30 11:00] VITALS: BMI 34.4
[2018-11-30] MEDS ORDERED: ceFAZolin 1 gm in NS 2 GM/200 ML BAG IVPB ONE (12:28)
[2018-11-30] MEDS ORDERED: Lidocaine Hydrochloride 0 ML INJ ONE (12:28)
[2018-11-30] MEDS ORDERED: HEPARIN-NS 5,000 UNITS/500 ML 5,000 UNIT/500 ML BAG IV ONE (12:29)
[2018-11-30] MEDS ORDERED: Ropivacaine 0.5% PF (20 ml) inj INJ ONE (13:02)
[2018-11-30] MEDS ORDERED: Midazolam 2 MG/2 ML VIAL ONE (13:07)
[2018-11-30 13:23] LABS: CALCIUM 9.7 mg/dl (8.6-10.4)
[2018-11-30] MEDS: PAPAVERINE 30 MG/ML IV ONE ×2 (14:08→14:15)
--- NOTE | 2018-11-30 15:09 | PCM.SURG1 ---
Surgeon's Initial Post Op Note - Surgeon's Notes Surgeon: Dr. Beck Associate Professor Of Musicology: Tika PGY2 Type of Anesthesia: Block Regional Anesthesia Administered By: Dr. Pollard, Dr. Zheng Pre-Operative Diagnosis: ESRD requiring HD Operative Findings: nice patent Left proximal cephalic vein and Left radial artery near anatomic snuffbox Post-Operative Diagnosis: ESRD requiring HD Operation Performed: Left reyes AVF Specimen/Specimens Removed: N/A Estimated Blood Loss: EBL {In ML}: 25 Blood Products Given: N/A Drains Used: No Drains Post-Op Condition: Good Date of Surgery/Procedure: 11/30/18 Time of Surgery/Procedure: 15:09
[2018-11-30] MEDS ORDERED: Oxycodone/Acetaminophen 5/325 mg Tab PO PRN (15:10)
[2018-11-30 16:34] VITALS: BP 139/52; PULSE 49; RESP 16; TEMP 97.7; O2SAT 95
--- NOTE | 2018-11-30 23:35 | OP ---
PROCEDURE DATE: 11/30/2018 PREOPERATIVE DIAGNOSIS: Renal failure. POSTOPERATIVE DIAGNOSIS: Renal failure. PROCEDURE CARRIED OUT: Snuffbox fistula, left wrist. SURGEON: Hector Beck Jr., MD LINE FISHER: Watson Villela DO ANESTHESIA: Axillary block. ANESTHESIOLOGIST: Norm Kemp DO INDICATIONS: The patient is an 88-year-old woman with renal insufficiency, now requiring dialysis and known history of pulmonary hypertension, etc. OPERATIVE FINDINGS: The patient underwent the procedure uneventfully. At the end of the procedure, she had good thrill to the fistula. DESCRIPTION OF PROCEDURE: The patient was given an axillary block. Using ultrasound guidance, we identified the best vein, which was at the wrist. Initially, we had planned to carry out the anastomosis to the brachial artery to the antecubital vein, which was the best seen on ultrasound, but further up the arm, the cephalic vein was not quite as strong, while in the forearm portion, actually the vein looked much better than this. After this had been completed, the anastomosis was carried out using loop magnification and heparin anticoagulation between the cephalic vein and the superficial branch of the radial artery in the anatomic snuffbox. After obtaining hemostasis, we closed the wounds with Monocryl and nylon sutures. Heparin was not reversed and there was excellent flow through the fistula. The operation carried out was a snuffbox fistula, left wrist. Hector Beck Jr., MD cc: Pk Bonilla MD Dr. Dr. Pitt
== END 2018-11-30 17:21 | disposition home or self-care (01) ==
LOC: C.SDS 10:30
PROVIDERS: ATTEND Surgery Vascular Surgery
DX: I12.0 Hypertensive chronic kidney disease with stage 5 chronic kidney disease or end stage renal disease (principal); N18.6 End stage renal disease; E11.22 Type 2 diabetes mellitus with diabetic chronic kidney disease; I27.20 Pulmonary hypertension, unspecified
CPT/HCPCS: 36415; 36821; 80048; J0690; J1644; J2250; J2440; J3010; J7030; J7040